=== PATIENT | male | born 1960 | race Caucasian/White ===

== ENCOUNTER 2019-05-29 06:56 | Inpatient (IN) | payer BC, OTHER, SELFPAY ==
--- NOTE | 2019-05-29 08:00 | CT ---
EXAM: CT angiogram great vessels neck with IV contrast and three-dimensional reconstructions CT angiogram brain with IV contrast and three-dimensional reconstructions PROVIDED CLINICAL HISTORY: Left-sided weakness COMPARISON: None FINDINGS: There is arch origin of the left vertebral artery, which is nondominant and terminates in PICA. . The common carotid, internal carotid, subclavian and vertebral arteries demonstrate no evidence for s ignificant stenosis. Calcified and noncalcified atherosclerotic plaque is demonstrated involving the right carotid bulb. There is no evidence for focal vessel stenosis, branch occlusion or aneurysm involving the intracrani al circulation. IMPRESSION: No significant extracranial or intracranial vascular disease.
--- NOTE | 2019-05-29 08:00 | CT ---
PRELIMINARY REPORT/[facility]/EMERGENCY AFTER HOURS PROCEDURE Addendum created by Michi Fontana MD on 05/29/2019 7:26 AM Central Time ([place] & [place]) THIS REPORT CONTAINS FINDINGS THAT MAY BE CRITICAL TO PATIENT CARE. The study was personally discussed on the telephone with care provider PEDRO SALINAS on 05/29/2019 7:26 AM [employer]IGARETTE EXAMINER. The results were understood and acknowledged. Initial Report created on 05/29/2019 7:18 AM Central Time ([place] & [place]) PROCEDURE INFORMATION: Exam: CT Head Without Contrast Exam date and time: 05/29/2019 7:03 AM Clinical history: 59 years old, male; Walking, difficulty and weakness, extremity; Left; Patient HX: Level 1 stroke fell out of bed this morning because PT states his legs would not support him. Lt sided deficits. HX stroke 2 months ago. Last time PT felt normal was 2am. TECHNIQUE: Imaging protocol: Computed tomography of the head without contrast. Other technique: STROKE PROTOCOL was implemented. COMPARISON: No relevant prior studies available. FINDINGS: Brain: Moderate chronic right ICA territory infarct. Multiple small chronic lacunar infarcts in the w noreen matter. Chronic left frontal opercular infarct. Small left parietal chronic cortical infarct. Multipl e chronic right parietal cortical infarcts. No midline shift, mass, fluid collection, or evidence of hemorrhage . Ventricles: Normal. No ventriculomegaly. Bones/joints: Unremarkable. No acute fracture. Sinuses: Visualized sinuses are unremarkable. No fluid levels. Mastoid air cells: Visualized mastoid air cells are well aerated. Soft tissues: Unremarkable. IMPRESSION: 1. [place] Stroke Program Early CT Score (ASPECTS) = 10. 2. No acute abnormality. Multiple chronic infarcts. Thank you for allowing us to participate in the care of your patient. Dictated and Authenticated by: Michi Fontana MD 05/29/2019 7:18 AM Central Time ([place] & [place]) FINAL REPORT EMERGENCY AFTER HOURS CT HEAD: Agree with the preliminary interpretation given by [facility] that there is no evidence for intracranial he morrhage or mass effect. Transcribed Date/Time: 05/29/2019 8:35 AM
[2019-05-29 08:10] LABS: #Basophils 0.1 thou/uL (0.0-0.2); #Eosinphils 0.1 thou/uL (0.0-0.7); #Lymphocytes 0.9 thou/uL (1.20-3.40); #Monocytes 0.9 thou/uL (0.11-0.59); #Neutrophils 7.6 thou/uL (1.40-6.50); %Basophils 0.7 % (0.0-1.0); %Eosinophils 0.8 % (0.0-10.0); %Lymphocytes 9.4 % (21.0-51.0); %Monocytes 8.9 % (0.0-10.0); %Neutrophils 80.2 % (42.0-75.0); Hemoglobin 12.6 g/dL (14.0-18.0); Mean Corpuscular Hemoglobin 32.7 pg (27.0-31.0); Mean Corpuscular Volume 96.4 fL (78.0-98.0); Mean Platelet Volume 9.6 fL (7.4-10.4); Platelet Count 121 thou/uL (130-400); RBC Distribution Width 11.5 % (11.5-14.5); Red Blood Cell (RBC) Count 3.84 mill/uL (4.70-6.10); White Blood Cell (WBC) Count 9.5 thou/uL (4.8-10.8)
--- NOTE | 2019-05-29 08:15 | RAD ---
EXAM: XR Chest 1 View Portable PROVIDED CLINICAL HISTORY: Stroke alert COMPARISON: None FINDINGS: Cardiac and mediastinal silhouette is within normal limits. Lungs appear clear. No pleural fluid or p neumothorax apparent. Contrast material within the right upper arm and axillary region compatible with extravasation from prior CT. IMPRESSION: 1. No evidence for an acute cardiopulmonary process. 2. Prominent contrast extravasation involving the right arm.
[2019-05-29 08:17] LABS: INR-International Normal Ratio 1.1; Prothrombin Time 13.7 SEC (12.0-14.7)
[2019-05-29 08:20] LABS: PTT 20.6 SEC (22.9-36.1)
[2019-05-29 08:46] LABS: ALT (SGPT) 90 U/L (8-55); AST (SGOT) 65 U/L (5-34); Albumin 3.7 g/dL (3.4-4.8); Alcohol Less than 10 mg/dL (Less than 10); Alkaline Phosphatase 175 U/L (40-110); Anion Gap 15 mmol/L (10-20); BUN (Urea Nitrogen) 27 mg/dL (8.4-25.7); Bilirubin, Total 0.6 mg/dL (0.2-1.2); CK (CPK) 74 U/L (30-200); Calc. Creatinine Clearance 0 mL/min (70-130); Calcium 8.5 mg/dL (7.8-10.44); Carbon Dioxide 25 mmol/L (23-31); Chloride 100 mmol/L (98-107); Estimated GFR-MDRD 43; Globulin 2.2 g/dL (2.4-3.5); Glucose 150 mg/dL (80-115); Potassium 3.8 mmol/L (3.5-5.1); Protein, Total 5.9 g/dL (5.8-8.1); Sodium 136 mmol/L (136-145)
[2019-05-29 08:47] LABS: CKMB 1.5 ng/mL (0-6.6)
[2019-05-29] MEDS ORDERED: Aspirin Chewable 81 MG TAB ONE (09:41)
[2019-05-29] MEDS ORDERED: Senokot S 8.6-50 MG TAB PO PRN (09:52)
[2019-05-29] MEDS ORDERED: Bisacodyl 10 MG SUPP PR PRN (09:52)
[2019-05-29] MEDS ORDERED: hydrALAZINE 20 MG/ML VIAL SLOW IVP PRN (09:52)
[2019-05-29] MEDS ORDERED: ALPRAZolam 0.25 MG TAB PO PRN (09:52)
[2019-05-29] MEDS ORDERED: Guaifenesin DM 100-10/5 ML UDCUP PO PRN (09:52)
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
[2019-05-29 11:41] VITALS: BMI 24.7
[2019-05-29 12:15] LABS: Troponin I 0.142 ng/mL (< 0.028)
--- NOTE | 2019-05-29 12:22 | MRI ---
Exam: Brain MRI without IV contrast: HISTORY: Stroke COMPARISON: Head CT 05/29/2019 FINDINGS: Exam is severely limited by motion artifact. There are old infarct changes in the right parietal and left frontal regions. There is evidence for acute infarct changes in the right medial anterior frontal lobe and corpus callosum and extending into the more posterior right frontal lobe medially ad jacent to the falx evidence for a right anterior cerebral artery distribution acute infarct. In addition there are numerous bilateral small punctate watershed type infarct changes bilaterally which appear acute as well. No evidence for acute hemorrhage. IMPRESSION: Evidence for acute infarct in the region of the right anterior cerebral artery distribution. Multiple small punctate acute infarcts bilaterally evidence for watershed type distribution. Old left frontal and right parietal infarcts.
[2019-05-29] MEDS: Sodium Chloride 0.9% 1,000 ML IV SCH ×2 (14:29→20:35)
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
[2019-05-29] MEDS ORDERED: Iopamidol-370 76% 500 ML 1 ML ONE (16:39)
[2019-05-29] MEDS: Atorvastatin Calcium 40 MG TAB PO SCH (20:34)
[2019-05-29] MEDS: Apixaban 5 MG TAB PO SCH (20:35)
[2019-05-29] MEDS ORDERED: Apixaban 2.5 MG TAB PO SCH (21:00)
[2019-05-30 05:27] LABS: #Eosinphils 0.1 thou/uL (0.0-0.7); #Lymphocytes 1.1 thou/uL (1.20-3.40); #Monocytes 0.9 thou/uL (0.11-0.59); #Neutrophils 10.8 thou/uL (1.40-6.50); %Basophils 0.1 % (0.0-1.0); %Eosinophils 0.6 % (0.0-10.0); %Lymphocytes 8.7 % (21.0-51.0); %Monocytes 7.2 % (0.0-10.0); %Neutrophils 83.4 % (42.0-75.0); Hemoglobin 12.3 g/dL (14.0-18.0); Mean Corpuscular HGB CONC 33.6 g/dL (32.0-36.0); Mean Corpuscular Hemoglobin 32.1 pg (27.0-31.0); Mean Corpuscular Volume 95.7 fL (78.0-98.0); Mean Platelet Volume 9.2 fL (7.4-10.4); Platelet Count 119 thou/uL (130-400); RBC Distribution Width 11.4 % (11.5-14.5); Red Blood Cell (RBC) Count 3.85 mill/uL (4.70-6.10); White Blood Cell (WBC) Count 12.9 thou/uL (4.8-10.8)
[2019-05-30 06:12] LABS: Anion Gap 15 mmol/L (10-20); BUN (Urea Nitrogen) 16 mg/dL (8.4-25.7); Calc. Creatinine Clearance 62 mL/min (70-130); Calcium 8.5 mg/dL (7.8-10.44); Carbon Dioxide 20 mmol/L (23-31); Cardiac Risk 1.9 (Less than 4.5); Chloride 107 mmol/L (98-107); Cholesterol 125 mg/dl (< 200 Desired); Estimated GFR-MDRD 54; Glucose 124 mg/dL (80-115); HDL Cholesterol 67 mg/dL (>60 Neg Risk); LDL Cholesterol, Calculated 48 mg/dL; Potassium 3.8 mmol/L (3.5-5.1); Sodium 138 mmol/L (136-145); Triglycerides 49 mg/dL (Less than 150)
[2019-05-30] MEDS: Sodium Chloride 0.9% 1,000 ML IV SCH ×2 (06:22→16:16)
[2019-05-30] MEDS: Levothyroxine Sodium 100 MCG TAB PO SCH (06:22)
[2019-05-30 06:31] LABS: Syphilis Antibody Nonreactive (Nonreactive); Syphilis Antibody Index 0.04 S/CO (<1.00 Non-Reactive)
[2019-05-30] MEDS ORDERED: Prevnar 13-Val Conj/PF 0.5 ML SYRINGE IM ONE (09:00)
[2019-05-30] MEDS: Apixaban 5 MG TAB PO SCH ×2 (09:21→20:57)
[2019-05-30] MEDS: Aspirin 81 mg Enteric Coated Tablet PO SCH (09:22)
--- NOTE | 2019-05-30 11:07 | PDOC.HOSPP ---
- Subjective Encounter Date: 05/30/19 Encounter Time: 08:00 Subjective: awake, responds to verbal stimuli cannot move his left LE at all, moves a bit of left UE takes time to answer questions - Objective Vital Signs & Weight: Vital Signs (12 hours) Temp Pulse Resp BP Pulse Ox 05/30/19 09:22 88 05/30/19 07:59 98.8 F 88 20 168/94 H 100 05/30/19 04:00 98.7 F 95 16 176/90 H 97 05/30/19 00:00 98.5 F 72 16 173/77 H 95 Weight Weight 167 lb 5 oz I&O: 05/29/19 05/30/19 05/31/19 06:59 06:59 06:59 Intake Total 1899 240 Balance 1899 240 Result Diagrams: 05/30/19 05:14 05/30/19 05:14 Hospitalist ROS - Medication Medications: Active Medications Generic Name Dose Route Start Last Admin Trade Name Freq PRN Reason Stop Dose Admin Apixaban 5 mg 05/29/19 21:00 05/30/19 09:21 Eliquis PO 5 mg BID [facility] Administration Aspirin 81 mg 05/30/19 09:00 05/30/19 09:22 Ecotrin PO 81 mg DAILY [facility] Administration Atorvastatin Calcium 40 mg 05/29/19 21:00 05/29/19 20:34 Lipitor PO 40 mg HS DAWSON Administration Diltiazem HCl 120 mg 05/30/19 09:00 05/30/19 09:22 Cardizem Cd PO 120 mg DAILY DAWSON Administration Sodium Chloride 1,000 mls @ 100 mls/hr 05/29/19 10:00 05/30/19 06:22 Normal Saline 0.9% IV Not Given .Q10H DAWSON Levothyroxine Sodium 100 mcg 05/30/19 06:00 05/30/19 06:22 Synthroid PO 100 mcg 0600 DAWSON Administration Sertraline HCl 25 mg 05/29/19 21:00 05/29/19 21:20 Zoloft PO 25 mg HS DAWSON Administration - Exam General Appearance: NAD, awake alert Eye: PERRL, anicteric sclera ENT: no oropharyngeal lesions, moist mucosa Neck: supple, no JVD Heart: RRR, no murmur Respiratory: no wheezes, no rales Gastrointestinal: soft, non-tender, non-distended, normal bowel sounds Extremities: no cyanosis, no edema Neurological - other findings: left hemiplegia lower >upper Psychiatric: normal affect Hosp A/P (1) Acute CVA (cerebrovascular accident) Code(s): I63.9 - CEREBRAL INFARCTION, UNSPECIFIED Status: Acute (2) HTN (hypertension) Code(s): I10 - ESSENTIAL (PRIMARY) HYPERTENSION Status: Chronic Qualifiers: Hypertension type: essential hypertension Qualified Code(s): I10 - Essential (primary) hypertension (3) Paroxysmal A-fib Code(s): I48.0 - PAROXYSMAL ATRIAL FIBRILLATION Status: Suspected (4) Dyslipidemia Code(s): E78.5 - HYPERLIPIDEMIA, UNSPECIFIED Status: Chronic (5) Pancreatic cancer metastasized to liver Code(s): C25.9 - MALIGNANT NEOPLASM OF PANCREAS, UNSPECIFIED; C78.7 - SECONDARY MALIG NEOPLASM OF LIVER AND INTRAHEPATIC BILE DUCT Status: Chronic - Plan MRI confirms right MARIAM cva, watershed infarct h/o old left frontal and right parietal cva is on full dose eliquis with asp now continue cardizem cd, synthroid ldl is 48, creatinine around 1.3 PT/OT/speech eval will need rehab eval has h/o pancreatic cancer from atleast 5yrs with prior whipple's procedure and mets to liver.
--- NOTE | 2019-05-30 14:35 | PDOC.CPN ---
- Subjective Date: 05/30/19 Time: 14:34 Interval history: Doing well. No new issues. - Review of Systems General: denies: fever/chills, weight/appetite/sleep changes, night sweats, fatigue Respiratory: denies: cough, congestion, shortness of breath, exercise intolerance Cardiovascular: denies: chest pain, palpitation, edema, paroxysmal nocturnal dyspnea, orthopnea Gastrointestinal: denies: nausea, vomiting, diarrhea, constipation, abd pain, GI bleeding Musculoskeletal: denies: pain, tenderness, stiffness, swelling, arthritis/ arthralgias Neurological: reports: weakness. denies: numbness, syncope, seizure - Objective Allergies/Adverse Reactions: Allergies Allergy/AdvReac Type Severity Reaction Status Date / Time amiodarone Allergy Verified 05/29/19 13:17 Visit Medications: Current Medications Acetaminophen (Tylenol) 650 mg PO Q4H PRN PRN Reason: Headache/Fever/Mild Pain (1-3) Alprazolam (Xanax) 0.25 mg PO Q24H PRN PRN Reason: Anxiety Apixaban (Eliquis) 5 mg PO BID [facility] Last Admin: 05/30/19 09:21 Dose: 5 mg Aspirin (Ecotrin) 81 mg PO DAILY [facility] Last Admin: 05/30/19 09:22 Dose: 81 mg Atorvastatin Calcium (Lipitor) 40 mg PO HS [facility] Last Admin: 05/29/19 20:34 Dose: 40 mg Bisacodyl (Dulcolax) 10 mg OK DAILYPRN PRN PRN Reason: Constipation Diltiazem HCl (Cardizem Cd) 120 mg PO DAILY [facility] Last Admin: 05/30/19 09:22 Dose: 120 mg Guaifenesin/Dextromethorphan (Robitussin Dm) 15 ml PO Q4H PRN PRN Reason: Cough Hydralazine HCl (Apresoline) 10 mg SLOW IVP Q4H PRN PRN Reason: BP > 220/110 Sodium Chloride (Normal Saline 0.9%) 1,000 mls @ 100 mls/hr IV .Q10H [facility] Last Admin: 05/30/19 06:22 Dose: Not Given Levothyroxine Sodium (Synthroid) 100 mcg PO 0600 [facility] Last Admin: 05/30/19 06:22 Dose: 100 mcg Senna/Docusate Sodium (Senokot S) 2 tab PO BIDPRN PRN PRN Reason: Constipation Sertraline HCl (Zoloft) 25 mg PO HS [facility] Last Admin: 05/29/19 21:20 Dose: 25 mg Sodium Chloride (Flush - Normal Saline) 10 ml IVF PRN PRN PRN Reason: Saline Flush Vital Signs & Weight: Vital Signs Temp Pulse Resp BP BP BP Pulse Ox 05/30/19 11:57 98.4 F 67 21 H 161/73 H 96 05/30/19 10:51 180/85 H 168/83 H 05/30/19 09:22 88 05/30/19 07:59 98.8 F 88 20 168/94 H 100 05/30/19 04:00 98.7 F 95 16 176/90 H 97 Weight 167 lb 5 oz - Physical Exam General: alert & oriented x3, no apparent distress HEENT: mucus membranes moist Neck: supple neck Cardiac: regular rate and rhythm, no murmur Lungs: clear to auscultation Neuro: weakness Abdomen: active bowel sounds, soft, non-tender Extremities: no edema Skin: clear Musculoskeletal: no pain - Labs Result Diagrams: 05/30/19 05:14 05/30/19 05:14 Troponin/CKMB CK-MB (CK-2) 1.5 ng/mL (0-6.6) 05/29/19 07:59 Troponin I 0.140 ng/mL (< 0.028) H 05/29/19 14:19 - Telemetry Sinus rhythms and dysrhythmias: sinus rhythm - Assessment/Plan Assessment/Plan: 1. Acute CVA, recurrent. 2. Paroxysmal Afib 3. Pancreatic cancer metastatic to the liver. PLAN: - Tolerating higher dose of Eliquis. - Will have EP evaluate as he is high risk for bleeding and may be a candidate for Watchman or Lariat.
[2019-05-30] MEDS: Atorvastatin Calcium 40 MG TAB PO SCH (20:57)
[2019-05-30 21:00] LABS: Anion Gap 12 mmol/L (10-20); BUN (Urea Nitrogen) 14 mg/dL (8.4-25.7); Calc. Creatinine Clearance 57 mL/min (70-130); Calcium 8.3 mg/dL (7.8-10.44); Carbon Dioxide 22 mmol/L (23-31); Chloride 105 mmol/L (98-107); Estimated GFR-MDRD 49; Glucose 223 mg/dL (80-115); Magnesium 1.9 mg/dL (1.6-2.6); Potassium 3.9 mmol/L (3.5-5.1); Sodium 135 mmol/L (136-145)
[2019-05-31] MEDS: Sodium Chloride 0.9% 1,000 ML IV SCH ×2 (02:08→13:07)
[2019-05-31] MEDS: Levothyroxine Sodium 100 MCG TAB PO SCH (05:50)
[2019-05-31] MEDS: Apixaban 5 MG TAB PO SCH ×2 (08:16→21:10)
[2019-05-31] MEDS: Aspirin 81 mg Enteric Coated Tablet PO SCH (08:16)
[2019-05-31] MEDS ORDERED: ALPRAZolam 0.25 MG TAB PO PRN (12:25)
--- NOTE | 2019-05-31 12:47 | PDOC.HOSPP ---
- Subjective Encounter Date: 05/31/19 Encounter Time: 11:20 Subjective: no sob or new weakness still not much movement seen in left extremities at bedside is tolerating oral diet - Objective Vital Signs & Weight: Vital Signs (12 hours) Temp Pulse Pulse Pulse Pulse Resp BP 05/31/19 12:23 97.6 F 67 20 05/31/19 10:00 05/31/19 09:05 80 74 70 05/31/19 08:55 79 80 70 05/31/19 08:15 68 190/78 H 05/31/19 08:08 19 05/31/19 07:56 98.0 F 68 28 H 05/31/19 04:00 98 F 64 16 BP BP BP BP Pulse Ox 05/31/19 12:23 185/85 H 97 05/31/19 10:00 154/76 H 05/31/19 09:05 144/71 H 177/82 H 154/76 H 05/31/19 08:55 177/82 H 144/81 H 154/70 H 05/31/19 08:15 05/31/19 08:08 93 L 05/31/19 07:56 190/78 H 93 L 05/31/19 04:00 160/76 H 96 Weight Weight 167 lb 5 oz I&O: 05/30/19 05/31/19 06/01/19 06:59 06:59 06:59 Intake Total 1899 720 360 Balance 1899 720 360 Result Diagrams: 05/30/19 05:14 05/30/19 20:33 Hospitalist ROS - Medication Medications: Active Medications Generic Name Dose Route Start Last Admin Trade Name Isiah PRN Reason Stop Dose Admin Apixaban 5 mg 05/29/19 21:00 05/31/19 08:16 Eliquis PO 5 mg BID [facility] Administration Aspirin 81 mg 05/30/19 09:00 05/31/19 08:16 Ecotrin PO 81 mg DAILY [facility]SON Administration Atorvastatin Calcium 40 mg 05/29/19 21:00 05/30/19 20:57 Lipitor PO 40 mg HS DAWSON Administration Diltiazem HCl 120 mg 05/30/19 09:00 05/31/19 08:15 Cardizem Cd PO 120 mg DAILY DAWSON Administration Sodium Chloride 1,000 mls @ 100 mls/hr 05/29/19 10:00 05/31/19 02:08 Normal Saline 0.9% IV 1,000 mls .Q10H DAWSON Administration Levothyroxine Sodium 100 mcg 05/30/19 06:00 05/31/19 05:50 Synthroid PO 100 mcg 0600 DAWSON Administration Sertraline HCl 25 mg 05/29/19 21:00 05/30/19 20:57 Zoloft PO 25 mg HS DAWSON Administration - Exam General Appearance: NAD, awake alert Eye: PERRL, anicteric sclera ENT: no oropharyngeal lesions, moist mucosa Neck: supple, no JVD Heart: RRR, no murmur Respiratory: no wheezes, no rales Gastrointestinal: soft, non-tender, non-distended, normal bowel sounds Extremities: no cyanosis, no edema Neurological - other findings: left hemiplegia Psychiatric: A&O x 3 Hosp A/P (1) Acute CVA (cerebrovascular accident) Code(s): I63.9 - CEREBRAL INFARCTION, UNSPECIFIED Status: Acute (2) HTN (hypertension) Code(s): I10 - ESSENTIAL (PRIMARY) HYPERTENSION Status: Chronic Qualifiers: Hypertension type: essential hypertension Qualified Code(s): I10 - Essential (primary) hypertension (3) Paroxysmal A-fib Code(s): I48.0 - PAROXYSMAL ATRIAL FIBRILLATION Status: Suspected (4) Dyslipidemia Code(s): E78.5 - HYPERLIPIDEMIA, UNSPECIFIED Status: Chronic (5) Pancreatic cancer metastasized to liver Code(s): C25.9 - MALIGNANT NEOPLASM OF PANCREAS, UNSPECIFIED; C78.7 - SECONDARY MALIG NEOPLASM OF LIVER AND INTRAHEPATIC BILE DUCT Status: Chronic - Plan MRI confirms right MARIAM cva, watershed infarct h/o old left frontal and right parietal cva is on full dose eliquis with asp continue cardizem cd, synthroid, creon tid ldl is 48 PT/OT/speech ongoing eval may dc to rehab if accepted has h/o pancreatic cancer from atleast 5yrs with prior whipple's procedure and mets to liver. d/w patient and at bedside
[2019-05-31] MEDS: Pancrelipase DR 12000 1 CAP PO SCH (17:36)
--- NOTE | 2019-05-31 17:38 | PDOC.CPN ---
- Subjective Date: 05/31/19 Time: 17:37 Interval history: No new issues. No new complaints. - Review of Systems General: denies: fever/chills, weight/appetite/sleep changes, night sweats, fatigue Respiratory: denies: cough, congestion, shortness of breath, exercise intolerance Cardiovascular: denies: chest pain, palpitation, edema, paroxysmal nocturnal dyspnea, orthopnea Gastrointestinal: denies: nausea, vomiting, diarrhea, constipation, abd pain, GI bleeding Musculoskeletal: denies: pain, tenderness, stiffness, swelling, arthritis/ arthralgias Neurological: denies: numbness, syncope, seizure, weakness - Objective Allergies/Adverse Reactions: Allergies Allergy/AdvReac Type Severity Reaction Status Date / Time amiodarone Allergy Verified 05/29/19 13:17 Visit Medications: Current Medications Acetaminophen (Tylenol) 650 mg PO Q4H PRN PRN Reason: Headache/Fever/Mild Pain (1-3) Alprazolam (Xanax) 0.25 mg PO DAILY PRN PRN Reason: Agitation Lipase/Protease/Amylase ([place] [id number]) 1 cap PO TID-WM [facility] Last Admin: 05/31/19 17:36 Dose: 1 cap Apixaban (Eliquis) 5 mg PO BID [facility] Last Admin: 05/31/19 08:16 Dose: 5 mg Aspirin (Ecotrin) 81 mg PO DAILY [facility] Last Admin: 05/31/19 08:16 Dose: 81 mg Atorvastatin Calcium (Lipitor) 40 mg PO HS [facility] Last Admin: 05/30/19 20:57 Dose: 40 mg Bisacodyl (Dulcolax) 10 mg DE DAILYPRN PRN PRN Reason: Constipation Diltiazem HCl (Cardizem Cd) 120 mg PO DAILY [facility] Last Admin: 05/31/19 08:15 Dose: 120 mg Guaifenesin/Dextromethorphan (Robitussin Dm) 15 ml PO Q4H PRN PRN Reason: Cough Hydralazine HCl (Apresoline) 10 mg SLOW IVP Q4H PRN PRN Reason: BP > 220/110 Levothyroxine Sodium (Synthroid) 100 mcg PO 0600 [facility] Last Admin: 05/31/19 05:50 Dose: 100 mcg Senna/Docusate Sodium (Senokot S) 2 tab PO BIDPRN PRN PRN Reason: Constipation Sertraline HCl (Zoloft) 25 mg PO HS [facility] Last Admin: 05/30/19 20:57 Dose: 25 mg Sodium Chloride (Flush - Normal Saline) 10 ml IVF PRN PRN PRN Reason: Saline Flush Vital Signs & Weight: Vital Signs Temp Pulse Pulse Pulse Pulse Resp BP 05/31/19 16:00 97.7 F 58 L 20 05/31/19 12:23 97.6 F 67 20 05/31/19 10:00 05/31/19 09:05 80 74 70 05/31/19 08:55 79 80 70 05/31/19 08:15 68 190/78 H 05/31/19 08:08 19 05/31/19 07:56 98.0 F 68 28 H BP BP BP BP Pulse Ox 05/31/19 16:00 149/72 H 97 05/31/19 12:23 185/85 H 97 05/31/19 10:00 154/76 H 05/31/19 09:05 144/71 H 177/82 H 154/76 H 05/31/19 08:55 177/82 H 144/81 H 154/70 H 05/31/19 08:15 05/31/19 08:08 93 L 05/31/19 07:56 190/78 H 93 L Admit Weight 167 lb 5 oz Weight 167 lb 5 oz - Physical Exam General: alert & oriented x3, no apparent distress HEENT: mucus membranes moist, normocephaly Neck: supple neck Cardiac: regular rate and rhythm, no murmur Lungs: clear to auscultation Neuro: weakness Abdomen: active bowel sounds, soft, non-tender Extremities: no edema Skin: clear Musculoskeletal: no pain - Labs Result Diagrams: 05/30/19 05:14 05/30/19 20:33 Troponin/CKMB CK-MB (CK-2) 1.5 ng/mL (0-6.6) 05/29/19 07:59 Troponin I 0.140 ng/mL (< 0.028) H 05/29/19 14:19 - Telemetry Sinus rhythms and dysrhythmias: sinus rhythm - Assessment/Plan Assessment/Plan: 1. Acute CVA, recurrent. 2. Paroxysmal Afib 3. Pancreatic cancer metastatic to the liver. PLAN: - brings his medications from home and Eliquis bottle is for 5 mg BID which is the correct dose for him. This means he has been on the current dose all this time and he states he has been very compliant hence he has failed full anticoagulation for CVA prophylaxis and would be a candidate for a Watchman or Lariat. EP to evaluate for this. Continue current meds otherwise.
[2019-05-31] MEDS: Atorvastatin Calcium 40 MG TAB PO SCH (21:10)
[2019-06-01] MEDS: Levothyroxine Sodium 100 MCG TAB PO SCH (06:07)
[2019-06-01] MEDS: Apixaban 5 MG TAB PO SCH ×2 (08:17→20:38)
[2019-06-01] MEDS: Aspirin 81 mg Enteric Coated Tablet PO SCH (08:17)
[2019-06-01] MEDS: Pancrelipase DR 12000 1 CAP PO SCH ×3 (08:17→17:30)
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
--- NOTE | 2019-06-01 15:53 | PDOC.HOSPP ---
- Subjective Encounter Date: 06/01/19 Encounter Time: 11:00 Subjective: no new weakness is eating well working with PT, has not been able to mobilize yet - Objective Vital Signs & Weight: Vital Signs (12 hours) Temp Pulse Pulse Pulse Pulse Resp BP 06/01/19 13:18 60 63 06/01/19 11:06 66 64 06/01/19 11:00 98.8 F 66 16 06/01/19 08:17 67 152/72 H 06/01/19 08:13 06/01/19 07:00 98.8 F 67 18 06/01/19 04:00 06/01/19 03:53 97.8 F 61 16 BP BP BP BP BP Pulse Ox 06/01/19 13:18 157/80 H 164/79 H 06/01/19 11:06 142/65 H 158/71 H 06/01/19 11:00 142/65 H 96 06/01/19 08:17 06/01/19 08:13 96 06/01/19 07:00 152/72 H 96 06/01/19 04:00 95 06/01/19 03:53 190/85 H 95 Weight Admit Weight 167 lb 5 oz Weight 167 lb 5 oz I&O: 05/31/19 06/01/19 06/02/19 06:59 06:59 06:59 Intake Total 720 1060 Balance 720 1060 Result Diagrams: 05/30/19 05:14 05/30/19 20:33 Hospitalist ROS - Medication Medications: Active Medications Generic Name Dose Route Start Last Admin Trade Name Freq PRN Reason Stop Dose Admin Lipase/Protease/Amylase 1 cap 05/31/19 17:00 06/01/19 11:56 [place] [id number] PO 1 cap TID-WM DAWSON Administration Apixaban 5 mg 05/29/19 21:00 06/01/19 08:17 Eliquis PO 5 mg BID [facility]WSON Administration Aspirin 81 mg 05/30/19 09:00 06/01/19 08:17 Ecotrin PO 81 mg DAILY [facility] Administration Atorvastatin Calcium 40 mg 05/29/19 21:00 05/31/19 21:10 Lipitor PO 40 mg HS [facility]WSON Administration Diltiazem HCl 120 mg 05/30/19 09:00 06/01/19 08:17 Cardizem Cd PO 120 mg DAILY [facility] Administration Levothyroxine Sodium 100 mcg 05/30/19 06:00 06/01/19 06:07 Synthroid PO 100 mcg 0600 DAWSON Administration Sertraline HCl 25 mg 05/29/19 21:00 05/31/19 21:11 Zoloft PO 25 mg HS [facility]WSON Administration - Exam General Appearance: NAD, awake alert Eye: PERRL, anicteric sclera ENT: no oropharyngeal lesions, moist mucosa Neck: supple, no JVD Heart: RRR, no murmur Respiratory: no wheezes, no rales Gastrointestinal: soft, non-tender, non-distended, normal bowel sounds Extremities: no cyanosis, no edema Neurological - other findings: left hemiplegia Psychiatric: normal affect, A&O x 3 Hosp A/P (1) Acute CVA (cerebrovascular accident) Code(s): I63.9 - CEREBRAL INFARCTION, UNSPECIFIED Status: Acute (2) HTN (hypertension) Code(s): I10 - ESSENTIAL (PRIMARY) HYPERTENSION Status: Chronic Qualifiers: Hypertension type: essential hypertension Qualified Code(s): I10 - Essential (primary) hypertension (3) Paroxysmal A-fib Code(s): I48.0 - PAROXYSMAL ATRIAL FIBRILLATION Status: Suspected (4) Dyslipidemia Code(s): E78.5 - HYPERLIPIDEMIA, UNSPECIFIED Status: Chronic (5) Pancreatic cancer metastasized to liver Code(s): C25.9 - MALIGNANT NEOPLASM OF PANCREAS, UNSPECIFIED; C78.7 - SECONDARY MALIG NEOPLASM OF LIVER AND INTRAHEPATIC BILE DUCT Status: Chronic - Plan MRI confirms right MARIAM cva, watershed infarct h/o old left frontal and right parietal cva is on full dose eliquis with asp continue cardizem cd, synthroid, creon tid ldl is 48 PT/OT/speech ongoing eval may dc to rehab if accepted has h/o pancreatic cancer from atleast 5yrs with prior whipple's procedure and mets to liver. has not been able to mobilize yet with PT/OT, will need rehab d/w , will have outpt watchman device in 2-4 wks arranged at [facility] in [place].
[2019-06-01] MEDS: Atorvastatin Calcium 40 MG TAB PO SCH (20:38)
[2019-06-02] MEDS: Acetaminophen 325 MG TAB PO PRN ×2 (00:48→22:57)
[2019-06-02] MEDS: Levothyroxine Sodium 100 MCG TAB PO SCH (05:47)
[2019-06-02] MEDS: Pancrelipase DR 12000 1 CAP PO SCH ×3 (08:56→17:55)
[2019-06-02] MEDS: Aspirin 81 mg Enteric Coated Tablet PO SCH (08:56)
[2019-06-02] MEDS: Apixaban 5 MG TAB PO SCH ×2 (08:57→20:45)
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
--- NOTE | 2019-06-02 16:42 | PDOC.HOSPP ---
- Subjective Encounter Date: 06/02/19 Encounter Time: 10:00 Subjective: no new complaints, at bedside is eating well has stood with PT but not ambulated yet he is trying and learning to balance on his right side to get his left side move - Objective Vital Signs & Weight: Vital Signs (12 hours) Temp Pulse Pulse Pulse Resp BP BP 06/02/19 15:35 97.7 F 60 20 06/02/19 13:54 80 60 183/93 H 06/02/19 11:25 97.8 F 58 L 20 06/02/19 08:56 71 175/90 H 06/02/19 08:55 06/02/19 07:39 98.3 F 60 20 BP BP Pulse Ox 06/02/19 15:35 153/77 H 95 06/02/19 13:54 176/84 H 06/02/19 11:25 168/81 H 96 06/02/19 08:56 06/02/19 08:55 96 06/02/19 07:39 172/90 H 96 Weight Admit Weight 167 lb 5 oz Weight 167 lb 5 oz I&O: 06/01/19 06/02/19 06/03/19 06:59 06:59 06:59 Intake Total 1060 730 240 Balance 1060 730 240 Result Diagrams: 05/30/19 05:14 05/30/19 20:33 Hospitalist ROS - Medication Medications: Active Medications Generic Name Dose Route Start Last Admin Trade Name Freq PRN Reason Stop Dose Admin Acetaminophen 650 mg 05/29/19 09:52 06/02/19 00:48 Tylenol PO 650 mg Q4H PRN Administration Headache/Fever/Mild Pain (1-3) Lipase/Protease/Amylase 1 cap 05/31/19 17:00 06/02/19 13:10 [place] [id number] PO 1 cap TID-WM [facility] Administration Apixaban 5 mg 05/29/19 21:00 06/02/19 08:57 Eliquis PO 5 mg BID [facility] Administration Aspirin 81 mg 05/30/19 09:00 06/02/19 08:56 Ecotrin PO 81 mg DAILY [facility] Administration Atorvastatin Calcium 40 mg 05/29/19 21:00 06/01/19 20:38 Lipitor PO 40 mg HS DAWSON Administration Diltiazem HCl 120 mg 05/30/19 09:00 06/02/19 08:56 Cardizem Cd PO 120 mg DAILY [facility] Administration Levothyroxine Sodium 100 mcg 05/30/19 06:00 06/02/19 05:47 Synthroid PO 100 mcg 0600 [facility] Administration Sertraline HCl 25 mg 05/29/19 21:00 06/01/19 20:38 Zoloft PO 25 mg HS [facility]WSON Administration Sodium Chloride 10 ml 05/29/19 09:52 06/01/19 20:38 Flush - Normal Saline IVF 10 ml PRN PRN Administration Saline Flush - Exam General Appearance: awake alert Eye: PERRL, anicteric sclera ENT: no oropharyngeal lesions, moist mucosa Neck: supple, no JVD Heart: no murmur, no gallops Respiratory: no wheezes, no rales Gastrointestinal: soft, non-tender, non-distended, normal bowel sounds Extremities: no cyanosis, no edema Neurological: hemiplegia Psychiatric: normal affect, A&O x 3 Hosp A/P (1) Acute CVA (cerebrovascular accident) Code(s): I63.9 - CEREBRAL INFARCTION, UNSPECIFIED Status: Acute (2) HTN (hypertension) Code(s): I10 - ESSENTIAL (PRIMARY) HYPERTENSION Status: Chronic Qualifiers: Hypertension type: essential hypertension Qualified Code(s): I10 - Essential (primary) hypertension (3) Paroxysmal A-fib Code(s): I48.0 - PAROXYSMAL ATRIAL FIBRILLATION Status: Suspected (4) Dyslipidemia Code(s): E78.5 - HYPERLIPIDEMIA, UNSPECIFIED Status: Chronic (5) Pancreatic cancer metastasized to liver Code(s): C25.9 - MALIGNANT NEOPLASM OF PANCREAS, UNSPECIFIED; C78.7 - SECONDARY MALIG NEOPLASM OF LIVER AND INTRAHEPATIC BILE DUCT Status: Chronic - Plan MRI confirms right MARIAM cva, watershed infarct h/o old left frontal and right parietal cva is on full dose eliquis with asp continue cardizem cd, synthroid, creon tid ldl is 48 PT/OT/speech ongoing eval awaiting insurance approval to rehab, may dc anytime if accepted has h/o pancreatic cancer from atleast 5yrs with prior whipple's procedure and mets to liver. has not been able to mobilize yet with PT/OT, will need rehab d/w , will have outpt watchman device in 2-[address] [facility] in [place].
--- NOTE | 2019-06-02 19:19 | PDOC.CPN ---
- Subjective Date: 06/02/19 Time: 19:16 Interval history: No new issues. Waiting on placement. - Review of Systems General: denies: fever/chills, weight/appetite/sleep changes, night sweats, fatigue Respiratory: denies: cough, congestion, shortness of breath, exercise intolerance Cardiovascular: denies: chest pain, palpitation, edema, paroxysmal nocturnal dyspnea, orthopnea Gastrointestinal: denies: nausea, vomiting, diarrhea, constipation, abd pain, GI bleeding Musculoskeletal: denies: pain, tenderness, stiffness, swelling, arthritis/ arthralgias Neurological: reports: weakness. denies: numbness, syncope, seizure - Objective Allergies/Adverse Reactions: Allergies Allergy/AdvReac Type Severity Reaction Status Date / Time amiodarone Allergy Verified 05/29/19 13:17 Visit Medications: Current Medications Acetaminophen (Tylenol) 650 mg PO Q4H PRN PRN Reason: Headache/Fever/Mild Pain (1-3) Last Admin: 06/02/19 00:48 Dose: 650 mg Alprazolam (Xanax) 0.25 mg PO DAILY PRN PRN Reason: Agitation Lipase/Protease/Amylase ([place] [id number]) 1 cap PO TID-[facility] Last Admin: 06/02/19 17:55 Dose: 1 cap Apixaban (Eliquis) 5 mg PO BID [facility] Last Admin: 06/02/19 08:57 Dose: 5 mg Aspirin (Ecotrin) 81 mg PO DAILY [facility] Last Admin: 06/02/19 08:56 Dose: 81 mg Atorvastatin Calcium (Lipitor) 40 mg PO HS [facility] Last Admin: 06/01/19 20:38 Dose: 40 mg Bisacodyl (Dulcolax) 10 mg [place] DAILYPRN PRN PRN Reason: Constipation Diltiazem HCl (Cardizem Cd) 120 mg PO DAILY [facility] Last Admin: 06/02/19 08:56 Dose: 120 mg Guaifenesin/Dextromethorphan (Robitussin Dm) 15 ml PO Q4H PRN PRN Reason: Cough Hydralazine HCl (Apresoline) 10 mg SLOW IVP Q4H PRN PRN Reason: BP > 220/110 Levothyroxine Sodium (Synthroid) 100 mcg PO 0600 [facility] Last Admin: 06/02/19 05:47 Dose: 100 mcg Senna/Docusate Sodium (Senokot S) 2 tab PO BIDPRN PRN PRN Reason: Constipation Sertraline HCl (Zoloft) 25 mg PO HS [facility] Last Admin: 06/01/19 20:38 Dose: 25 mg Sodium Chloride (Flush - Normal Saline) 10 ml IVF PRN PRN PRN Reason: Saline Flush Last Admin: 06/01/19 20:38 Dose: 10 ml Vital Signs & Weight: Vital Signs Temp Pulse Pulse Pulse Resp BP BP 06/02/19 15:35 97.7 F 60 20 06/02/19 13:54 80 60 183/93 H 06/02/19 11:25 97.8 F 58 L 20 06/02/19 08:56 71 175/90 H 06/02/19 08:55 06/02/19 07:39 98.3 F 60 20 BP BP Pulse Ox 06/02/19 15:35 153/77 H 95 06/02/19 13:54 176/84 H 06/02/19 11:25 168/81 H 96 06/02/19 08:56 06/02/19 08:55 96 06/02/19 07:39 172/90 H 96 Admit Weight 167 lb 5 oz Weight 167 lb 5 oz - Quality Measures Condition: Atrial Fibrillation/Flutter (hx or current) CV meds: ASA: Yes, Anticoagulant: Yes (eliquis) - Physical Exam General: alert & oriented x3 HEENT: mucus membranes moist Neck: supple neck Cardiac: regular rate and rhythm Lungs: clear to auscultation Neuro: weakness Abdomen: active bowel sounds, soft, non-tender Skin: clear Musculoskeletal: no pain - Labs Result Diagrams: 05/30/19 05:14 05/30/19 20:33 Troponin/CKMB CK-MB (CK-2) 1.5 ng/mL (0-6.6) 05/29/19 07:59 Troponin I 0.140 ng/mL (< 0.028) H 05/29/19 14:19 - Telemetry Sinus rhythms and dysrhythmias: sinus rhythm - Assessment/Plan Assessment/Plan: 1. Acute CVA, recurrent. 2. Paroxysmal Afib 3. Pancreatic cancer metastatic to the liver. PLAN: - He will follow up with EP as an outpatient for Watchman device placement.. - Will sign off. Please call with any questions. - Continue full dose Eliquis at 5 mg BID. - May discharge to inpt rehab at any time from cardiac perspective. - Will sign off. Please call with any questions.
[2019-06-02] MEDS: Atorvastatin Calcium 40 MG TAB PO SCH (20:45)
[2019-06-03] MEDS: Levothyroxine Sodium 100 MCG TAB PO SCH (05:46)
[2019-06-03] MEDS: Apixaban 5 MG TAB PO SCH (09:27)
[2019-06-03] MEDS: Pancrelipase DR 12000 1 CAP PO SCH ×3 (09:27→16:40)
[2019-06-03] MEDS: Aspirin 81 mg Enteric Coated Tablet PO SCH (09:27)
[2019-06-03] MEDS ORDERED: Morphine 2 MG/ML SYRINGE SLOW IVP SCH (10:45)
[2019-06-03] MEDS ORDERED: ALPRAZolam 0.25 MG TAB PO PRN (11:05)
--- NOTE | 2019-06-03 11:29 | PDOC.HOSPP ---
- Subjective Encounter Date: 06/03/19 Encounter Time: 10:00 Subjective: c/o back pain due to positioning, wants xanax bid no improvement in left extr motor strength yet he stood up with PT and trying to balance out his left side, says he is getting better at it. - Objective Vital Signs & Weight: Vital Signs (12 hours) Temp Pulse Resp BP BP Pulse Ox 06/03/19 09:27 74 167/78 H 06/03/19 07:48 97.5 F L 74 16 167/78 H 97 06/03/19 04:00 97.7 F 20 160/84 H 96 Weight Admit Weight 167 lb 5 oz Weight 167 lb 5 oz I&O: 06/02/19 06/03/19 06/04/19 06:59 06:59 06:59 Intake Total 730 1020 537 Balance 730 1020 537 Result Diagrams: 05/30/19 05:14 05/30/19 20:33 Hospitalist ROS - Medication Medications: Active Medications Generic Name Dose Route Start Last Admin Trade Name Freq PRN Reason Stop Dose Admin Acetaminophen 650 mg 05/29/19 09:52 06/02/19 22:57 Tylenol PO 650 mg Q4H PRN Administration Headache/Fever/Mild Pain (1-3) Lipase/Protease/Amylase 1 cap 05/31/19 17:00 06/03/19 09:27 [place] [id number] PO 1 cap TID-WM [facility] Administration Apixaban 5 mg 05/29/19 21:00 06/03/19 09:27 Eliquis PO 5 mg BID [facility] Administration Aspirin 81 mg 05/30/19 09:00 06/03/19 09:27 Ecotrin PO 81 mg DAILY [facility] Administration Atorvastatin Calcium 40 mg 05/29/19 21:00 06/02/19 20:45 Lipitor PO 40 mg HS DAWSON Administration Diltiazem HCl 120 mg 05/30/19 09:00 06/03/19 09:27 Cardizem Cd PO 120 mg DAILY [facility] Administration Levothyroxine Sodium 100 mcg 05/30/19 06:00 06/03/19 05:46 Synthroid PO 100 mcg 0600 [facility] Administration Morphine Sulfate 2 mg 06/03/19 10:45 06/03/19 10:36 Morphine SLOW IVP 06/03/19 12:00 2 mg NOW DAWSON Administration Sertraline HCl 25 mg 05/29/19 21:00 06/02/19 20:45 Zoloft PO 25 mg HS DAWSON Administration Sodium Chloride 10 ml 05/29/19 09:52 06/01/19 20:38 Flush - Normal Saline IVF 10 ml PRN PRN Administration Saline Flush - Exam General Appearance: awake alert Eye: PERRL, anicteric sclera ENT: no oropharyngeal lesions, moist mucosa Neck: supple, no JVD Heart: RRR, no murmur Respiratory: no wheezes, no rales Gastrointestinal: soft, non-tender, non-distended, normal bowel sounds Extremities: no cyanosis, no edema Neurological: hemiplegia Psychiatric: normal affect, A&O x 3 Hosp A/P (1) Acute CVA (cerebrovascular accident) Code(s): I63.9 - CEREBRAL INFARCTION, UNSPECIFIED Status: Acute (2) HTN (hypertension) Code(s): I10 - ESSENTIAL (PRIMARY) HYPERTENSION Status: Chronic Qualifiers: Hypertension type: essential hypertension Qualified Code(s): I10 - Essential (primary) hypertension (3) Paroxysmal A-fib Code(s): I48.0 - PAROXYSMAL ATRIAL FIBRILLATION Status: Suspected (4) Dyslipidemia Code(s): E78.5 - HYPERLIPIDEMIA, UNSPECIFIED Status: Chronic (5) Pancreatic cancer metastasized to liver Code(s): C25.9 - MALIGNANT NEOPLASM OF PANCREAS, UNSPECIFIED; C78.7 - SECONDARY MALIG NEOPLASM OF LIVER AND INTRAHEPATIC BILE DUCT Status: Chronic - Plan MRI confirms right MARIAM cva, watershed infarct h/o old left frontal and right parietal cva is on full dose eliquis with asp continue cardizem cd, synthroid, creon tid ldl is 48 PT/OT/speech ongoing eval awaiting insurance approval to rehab, may dc anytime if accepted has h/o pancreatic cancer from atleast 5yrs with prior whipple's procedure and mets to liver. has not been able to mobilize yet with PT/OT but says he is getting better at balancing his left side now, will need rehab d/w , will have outpt watchman device in 2-4 wks arranged at [facility] in [place].
[2019-06-03 15:29] VITALS: TEMP 98.5
[2019-06-03 15:41] VITALS: BP 150/73
--- NOTE | 2019-06-03 20:32 | DIS ---
DATE OF ADMISSION: 05/29/2019 DATE OF DISCHARGE: 06/03/2019 DISCHARGE DISPOSITION: Inpatient rehab. PRIMARY DISCHARGE DIAGNOSES: Acute cerebrovascular accident with right anterior cerebral artery infarct, history of paroxysmal atrial fibrillation, hypertension, dyslipidemia, history of pancreatic cancer with metastasis to liver. Current chemotherapy has been held due to cerebrovascular accident. PROCEDURES DONE DURING HOSPITALIZATION: MRI brain showed acute infarct in the region of right anterior cerebral artery distribution, multiple small punctate acute infarcts bilaterally seen with watershed type distribution infarct, old left frontal and right parietal infarcts. CT angio of brain showed no significant extracranial or intracranial vascular disease. Echo with 2D Doppler showed EF of 60% to 65%. There was diastolic dysfunction, moderate aortic regurgitation was seen. H and H 12 and 36, platelet count 119, MCV 95, BUN 14, creatinine 1.4. Total cholesterol 125, triglycerides 49, LDL 48, HDL 67. INPATIENT CONSULT: Dr. Mendez for Cardiology, Dr. Vy Burden for Electrophysiology. MEDICATIONS: 1. Eliquis 5 mg p.o. twice daily. 2. Aspirin 81 mg p.o. daily. 3. Xanax 0.25 mg p.o. twice daily p.r.n. 4. Lipitor 40 mg p.o. nightly. 5. Cardizem CD 120 mg p.o. daily. 6. Lisinopril 2.5 mg p.o. daily. 7. Zoloft 25 mg p.o. daily. 8. Levothyroxine 100 mcg p.o. daily. 9. Creon 12,000 units p.o. three times daily. ALLERGIES: ALLERGIC TO AMIODARONE. DISCHARGE PLAN: The patient to follow up with , his primary care physician in 1 week. He needs to follow up with Dr. Gary Fitch on 06/21/2019 at 02:00 p.m. for possible placement of a Watchman device. BRIEF COURSE DURING HOSPITALIZATION: The patient initially got admitted on the with complaints of left-sided weakness. The patient has had history of paroxysmal atrial fibrillation and had sustained CVA on the same side 2 months back. He had a Holter/event monitor placed by Dr. Balderas, cable rigger at [facility] and he was placed on Eliquis after being found with likely paroxysmal atrial fibrillation. He also had chronic history of pancreatic cancer which was diagnosed in January 2015 with mets to liver. He has had Whipple procedure for the same and was on Sutent, which has been held from last 2 months due to CVA. On examination, the patient had dense left hemiplegia. He has had MRI done which confirmed left MARIAM stroke. This was a watershed infarct and likely due to underlying atrial fibrillation. He had discontinued aspirin after taking it for 2 weeks after recent CVA 2 months back due to increased ecchymosis in the skin. He was placed back on aspirin now. He was evaluated by Dr. Mendez and Dr. Mcclellan. The patient will likely have a Watchman device in 4-6 weeks. Followup has been set up to see Dr. Gary Fitch on June 21 for the same. This is due to patient having a recurrent CVA despite being on Eliquis and inability to tolerate aspirin. The patient still has dense left hemiplegia and is slowly learning to balance his left side using his dominant right upper and lower extremities. He has not ambulated yet and he is being discharged to inpatient rehab. Please note, his discharge plan was held up for the last 3 days due to insurance approval to go to rehab. He is otherwise hemodynamically stable and will be shortly discharged. A total of 35 minutes was spent on discharge plan. Please see a [id number] documentation on LogMe[employer] for the day of discharge. Job ID: [id number]
== END 2019-06-03 19:06 | DRG 65 ==
LOC: ERS 06:56 → 2SE 09:15
PROVIDERS: ADMIT Internal Medicine; ATTEND Internal Medicine
PROC: 3E0234Z Introduction of Serum, Toxoid and Vaccine into Muscle, Percutaneous Approach (ICD-10-PCS; principal; 2019-05-30)
DX: I63.521 Cerebral infarction due to unspecified occlusion or stenosis of right anterior cerebral artery (principal); G81.94 Hemiplegia, unspecified affecting left nondominant side; C25.9 Malignant neoplasm of pancreas, unspecified; C78.7 Secondary malignant neoplasm of liver and intrahepatic bile duct; I48.0 Paroxysmal atrial fibrillation; I10 Essential (primary) hypertension; E78.5 Hyperlipidemia, unspecified; R29.706 NIHSS score 6; R40.2362 Coma scale, best motor response, obeys commands, at arrival to emergency department; R40.2142 Coma scale, eyes open, spontaneous, at arrival to emergency department; R40.2252 Coma scale, best verbal response, oriented, at arrival to emergency department; E03.9 Hypothyroidism, unspecified; I08.0 Rheumatic disorders of both mitral and aortic valves; Z88.8 Allergy status to other drugs, medicaments and biological substances; Z79.899 Other long term (current) drug therapy; Z79.01 Long term (current) use of anticoagulants; Z79.890 Hormone replacement therapy; Z86.73 Personal history of transient ischemic attack (TIA), and cerebral infarction without residual deficits; Z23 Encounter for immunization
CPT/HCPCS: 36415; 36416; 70450; 70496; 70498; 70551; 71045; 80048; 80053; 80061; 80307; 82550; 82553; 83605; 83735; 84484; 85025; 85610; 85730; 86780; 86850; 86900; 86901; 87324; 87449; 90471; 90670; 93005; 93306; G0009; J2270; Q9967

== ENCOUNTER 2019-10-14 20:38 | Emergency (ER) | payer BC ==
[2019-10-14 21:57] LABS: Bilirubin Negative (Negative); Calcium Oxalate Crystals 4+ HPF (None Seen); Clarity Extra Turbid (Clear); Glucose, Urine (Dipstick) Normal (Negative); Leukocyte 500 Leu/uL (Negative); Nitrite 2+ (Negative); Protein, Urine (Dipstick) 50 mg/dL (Neg-Trace); RBC/HPF 21-50 HPF (0-3); Squamous Epithelial 0-3 HPF (0-3); Urobilinogen Normal mg/dL (Less than 2); WBC/HPF Greater than 50 HPF (0-3)
[2019-10-14 21:58] LABS: Bacteria/HPF 1+ HPF (None Seen); Blood, Urine 1+ (Negative)
--- NOTE | 2019-10-14 23:29 | CT ---
CT BRAIN NONCONTRAST: DATE: 10/14/2019 11:12 PM HISTORY: 59-year-old male status post acute head trauma from fall and dizziness, with loss of consciousness. COMPARISON: 05/29/2019 FINDINGS: No acute intracranial hemorrhage, mass effect, midline shift, extra-axial fluid collection, calvarial fracture, or obstructive hydrocephalus. Moderate-sized old right paramedian frontal lobe infarctions in right MARIAM territory demonstrated on t he current CT, was not visible on the previous brain CT of 05/29/2019, but was demonstrated to be an acute infarction on the MRI of that same day. There is a new finding of mild ex vacuo dilation of the frontal horn of the right lateral ventricle associated with that. Moderate-sized old right lateral parietal infarction in right MCA territory again noted. Tiny old lacunar infarction at posterior aspect of right basal ganglia again noted. Left anterolateral lower frontal old infarction in left MCA territory. Small old left subcortical and deep white matter lateral frontal infarction again noted. A very small old infarction in right PICA territory right cerebellum. IMPRESSION: 1. No acute intracranial findings. 2. Multiple old brain infarctions of varying sizes.
[2019-10-14] MEDS ORDERED: Adacel (T-DAP) 0.5 ML SYRINGE ONE (23:31)
== END 2019-10-15 00:03 | disposition home or self-care (01) ==
LOC: ERS 20:38
DX: S00.03XA Contusion of scalp, initial encounter (principal); E03.9 Hypothyroidism, unspecified; I10 Essential (primary) hypertension; Z86.73 Personal history of transient ischemic attack (TIA), and cerebral infarction without residual deficits; Z79.899 Other long term (current) drug therapy; W22.8XXA Striking against or struck by other objects, initial encounter
CPT/HCPCS: 70450; 81003; 81015; 90471; 90715

== ENCOUNTER 2019-10-17 12:29 | Inpatient (IN) | payer BC, OTHER ==
[2019-10-17] MEDS ORDERED: Iopamidol 370 76% 100 ML VIAL ONE (13:43)
[2019-10-17 14:45] LABS: #Eosinphils 0.1 thou/uL (0.0-0.7); #Lymphocytes 0.7 thou/uL (1.20-3.40); #Monocytes 0.4 thou/uL (0.11-0.59); #Neutrophils 7.6 thou/uL (1.40-6.50); %Basophils 0.1 % (0.0-1.0); %Eosinophils 0.8 % (0.0-10.0); %Lymphocytes 7.9 % (21.0-51.0); %Monocytes 4.9 % (0.0-10.0); %Neutrophils 86.3 % (42.0-75.0); Hemoglobin 9.1 g/dL (14.0-18.0); Mean Corpuscular HGB CONC 32.8 g/dL (32.0-36.0); Mean Corpuscular Hemoglobin 29.7 pg (27.0-31.0); Mean Corpuscular Volume 90.4 fL (78.0-98.0); Mean Platelet Volume 8.8 fL (7.4-10.4); Platelet Count 139 thou/uL (130-400); RBC Distribution Width 12.3 % (11.5-14.5); Red Blood Cell (RBC) Count 3.08 mill/uL (4.70-6.10); White Blood Cell (WBC) Count 8.8 thou/uL (4.8-10.8)
[2019-10-17 14:49] LABS: Bilirubin Negative (Negative); Blood, Urine Large (Negative); Glucose, Urine (Dipstick) Negative (Negative); Leukocyte Moderate (Negative); Nitrite Positive (Negative); Protein, Urine (Dipstick) 30 mg/dL (Neg-Trace); Urobilinogen 0.2 mg/dL (Less than 2)
[2019-10-17 14:51] LABS: Clarity CLOUDY (Clear)
[2019-10-17 14:53] LABS: Bacteria/HPF 2+ HPF (None Seen); Squamous Epithelial 0-3 HPF (0-3)
[2019-10-17] MEDS ORDERED: Cefepime 2 GM VIAL ONE (14:58)
[2019-10-17] MEDS ORDERED: Acetaminophen 500 MG TAB ONE (14:58)
[2019-10-17] MEDS ORDERED: Vancomycin 1 GM/200 ML BAG ONE (14:58)
[2019-10-17 15:08] LABS: ALT (SGPT) 45 U/L (8-55); AST (SGOT) 45 U/L (5-34); Albumin 3.1 g/dL (3.4-4.8); Alkaline Phosphatase 272 U/L (40-110); Anion Gap 15 mmol/L (10-20); BUN (Urea Nitrogen) 17 mg/dL (8.4-25.7); Bilirubin, Total 0.3 mg/dL (0.2-1.2); Calc. Creatinine Clearance 0 mL/min (70-130); Calcium 8.4 mg/dL (7.8-10.44); Carbon Dioxide 23 mmol/L (23-31); Chloride 102 mmol/L (98-107); Estimated GFR-MDRD 65; Globulin 2.7 g/dL (2.4-3.5); Glucose 79 mg/dL (80-115); Lipase Less than 4 U/L (8-78); Magnesium 1.6 mg/dL (1.6-2.6); Potassium 4.3 mmol/L (3.5-5.1); Protein, Total 5.8 g/dL (5.8-8.1); Sodium 136 mmol/L (136-145)
[2019-10-17 15:19] LABS: Base Excess-Venous -0.7 mmol/L (-2.0 to 3.0); Bicarbonate (HCO3v) 25.8 mmol/L (22.0-28.0); CO2 Tension (PvCO2) 50.3 mmHg (40.0-50.0); Calcium, Ionized 1.13 mmol/L (See Comments:); Chloride 103 mmol/L (98-107); Hemoglobin - Calc 10.3 g/dL (14.0-18.0); Potassium 3.9 mmol/L (3.5-5.1); Sodium 140 mmol/L (138-145); T. Carbon Dioxide 27.4 mmol/L (22.0-28.0); vO2 Saturation-calc 73.4 % (60.0-85.0)
--- NOTE | 2019-10-17 15:27 | RAD ---
EXAM: CHEST ONE VIEW HISTORY: Weakness. COVID exposure. COMPARISON: 05/29/2019 FINDINGS: Cardiac silhouette is magnified by projection. Pulmonary vasculature is within normal limits The lung s are clear. Degenerative changes are seen in the spine. Increased density material overlying right axillary region and proximal right upper extremity on prior exam is not visualized on this exam. IMPRESSION: No acute cardiopulmonary process.
[2019-10-17] MEDS ORDERED: Ketorolac Tromethamine 30 MG/ML VIAL ONE (15:52)
[2019-10-17 16:39] LABS: Base Excess-Venous -0.5 mmol/L (-2.0 to 3.0); Bicarbonate (HCO3v) 26.4 mmol/L (22.0-28.0); CO2 Tension (PvCO2) 53.5 mmHg (40.0-50.0); Calcium, Ionized 1.14 mmol/L (See Comments:); Chloride 103 mmol/L (98-107); Hemoglobin - Calc 9.9 g/dL (14.0-18.0); Potassium 3.9 mmol/L (3.5-5.1); Sodium 139 mmol/L (138-145); vO2 Saturation-calc 74.6 % (60.0-85.0)
[2019-10-17] MEDS ORDERED: levETIRAcetam 500 MG/100 ML PREMIX BAG ONE (16:55)
[2019-10-17] MEDS ORDERED: niCARdipine 25 MG in Sodium Chloride 0.9% 250 ML 240 ML IVPB SCH (17:00)
[2019-10-17] MEDS ORDERED: Sodium Chloride 0.9% 1,000 ML IV SCH (17:05)
[2019-10-17] MEDS ORDERED: Bisacodyl 10 MG SUPP PR PRN (17:05)
[2019-10-17] MEDS ORDERED: Acetaminophen 650 MG Suppository PR PRN (17:05)
--- NOTE | 2019-10-17 17:09 | CT ---
CT HEAD WITHOUT IV CONTRAST COMPARISON: 10/14/2019 HISTORY: Fever and global weakness for one day. TECHNIQUE: Axial CT imaging at 5 mm intervals from vertex through skull base without contrast FINDINGS: Again noted are multiple areas of encephalomalacia related to remote areas of infarction seen in the right paramedian frontal region, right lateral frontal parietal region and in the left anterolateral frontal region unchanged when compared to the prior study. Additional foci of diminishe d density are also seen within the subcortical white matter of each frontal lobe suggesting remote areas of infarction. Stable remote lacunar infarction in the right basal ganglia is again present. Ti ny remote infarction is again seen in the right cerebellar hemisphere. There is no evidence of an acute cortical infarction, hemorrhage, mass effect, or midline shift. The ventricular system is normal in size, shape, and position. Visualized paranasal sinuses are clear. Osseous structures appear intact. IMPRESSION: 1. No acute intracranial abnormality demonstrated. 2. Multiple remote scattered infarctions throughout each cerebral hemisphere and in the right cerebel lar hemisphere similar to prior exam.
[2019-10-17] MEDS ORDERED: Diltiazem HCl 125 MG, Admixture Fee 1 EACH in Sodium Chloride 0.9% 100 ML IVPB SCH (17:15)
[2019-10-17] MEDS ORDERED: Diltiazem 125 MG in Sodium Chloride 0.9% 100 ML IVPB SCH (17:15)
--- NOTE | 2019-10-17 17:15 | CT ---
CT Chest WO Con History: Sepsis. Tachypnea. Comparison: Chest radiograph same day Findings: There are cluster of nodules within the right upper lobe anterior segment was do abut the m inor fissure which overall in total this cluster measures 12 mm in AP dimension with a transverse dimension of 4 mm and a craniocaudal dimension of 9 mm. Spelled reflect area of scar or old granuloma tous disease. No confluent airspace consolidation, pneumothorax, or effusion. No groundglass opacities. No evidence for viral infectious process. The aortic contour is normal. There is markedly abnormal attenuation of the liver with multiple hypod ensities incompletely evaluated as well as an intraparenchymal calcification along the anterior and posterior right lobe of the liver. Mild perinephric stranding. Spleen is unremarkable. Impression: 1. Cluster of small nodules along the right upper lobe abutting the major fissure likely sequela of o ld granuloma disease or treated infection. Follow-up CT chest in 3 months recommended. 2. No evidence for an atypical viral infectious process. 3. Although limited on this noncontrast chest CT examination, there is markedly abnormal appearance o f the liver with multiple liver appears be hypodense masses. Dedicated liver protocol CT or MRI is highly recommended. CODE: CR
[2019-10-17] MEDS ORDERED: Lorazepam 2 MG/ML VIAL ONE ×2 (17:29→17:30)
[2019-10-17] MEDS ORDERED: Metoprolol Tartrate 5 MG/5 ML VIAL ONE (17:48)
[2019-10-17] MEDS ORDERED: cefTRIAXone\\ROCEPHIN 2 GM in Sodium Chloride 0.9% 100 ML IVPB SCH (18:00)
[2019-10-17] MEDS ORDERED: Metoprolol Tartrate 5 MG/5 ML VIAL IVP SCH (18:00)
[2019-10-17] MEDS ORDERED: Metoprolol Tartrate 5 MG/5 ML VIAL IVP PRN (18:00)
[2019-10-17 18:14] LABS: Acetaminophen Less than 6.0 mcg/mL (10.0-30.0); Alcohol Less than 10 mg/dL (Less than 10); Salicylate Less than 8.0 mg/dL (15.0-30.0)
--- NOTE | 2019-10-17 18:14 | HP ---
REASON FOR ADMISSION: Sepsis, possible invasive urinary tract infection, seizures with history of seizure disorder, acute metabolic encephalopathy, atrial fibrillation with RVR. HISTORY OF PRESENTING ILLNESS: Please note majority of this history is obtained by talking to the patient's , . Hallie Baker. He apparently had been feeling very fatigued and weak. He has also not been eating from last 2 to 3 days now. He has had off and on diarrhea as well. He had a recent urinary tract infection and was on Macrobid for the same. mentions that he had been to ER 2 or 3 days back when he hit his head. The patient has been off Sutent from last 10 months, which he was taking for pancreatic cancer and now he is scheduled for radiation therapy from October 19 for the pancreatic cancer. The also mentions that he has been shaking his different extremities at different times at home. She was essentially thinking it was chills initially. Here in the ER, the patient has had a short episode of tonic-colonic seizure. He has history of dense hemiplegia on the left side. Also, the patient has issue with left gaze restriction now. He has no complaints of chest pain or palpitation. No complaints of shortness of breath. He has had exposure to COVID-19 when one of his cousins visited him 10 to 12 days back for nearly 4-hour exposure at home. PAST MEDICAL AND SURGICAL HISTORY: History of pancreatic cancer with prior Whipple procedure and follows up at [facility]. He is scheduled for radiation therapy, likely palliative radiation. History of chronic atrial fibrillation, hypothyroidism, hypertension, history of vitale with skin grafting in right upper extremity with contraction, claw hand, biceps tendon repair, history of CVA with left hemiplegia, depression, seizure disorder, diabetes likely due to the pancreatic insufficiency. CURRENT MEDICATIONS: The patient is on; 1. Multivitamin one tablet once daily. 2. Tylenol 3 p.r.n. 3. Vitamin D3 of 5000 units p.o. daily. 4. Aspirin 81 mg p.o. daily. 5. Atorvastatin 40 mg p.o. at bedtime. 6. Cardizem CD 120 mg p.o. daily. 7. Finasteride 5 mg p.o. daily. 8. Keppra 500 mg p.o. twice daily. 9. Levothyroxine 50 mcg p.o. daily. 10. Lisinopril 20 mg p.o. daily. 11. Melatonin 3 mg p.o. at bedtime. 12. Methylphenidate 10 mg p.o. twice daily. 13. Creon 12,000 units one capsule three times daily. 14. Protonix 40 mg daily. 15. Sertraline 50 mg daily. 16. Januvia 50 mg daily. 17. Flomax 0.4 mg daily. 18. Trazodone 50 mg p.o. at bedtime. ALLERGIES: AMLODIPINE AND AMIODARONE. PERSONAL HISTORY: Does not abuse alcohol or drugs. No history of smoking. Lives with his . FAMILY HISTORY: Mother has history of heart failure and coronary artery disease. Father at the age of 52 with alcohol-related complications. CODE STATUS: The patient is a do not attempt to resuscitate, this was discussed with him and his . REVIEW OF SYSTEMS: CONSTITUTIONAL: Negative for weight loss or gain, ability to conduct usual activities. SKIN: Negative for rash, itching. EYES: Negative for double vision, pain. ENT/MOUTH: Negative for nose bleeding, neck stiffness, pain, tenderness. CARDIOVASCULAR: Negative for palpitations, dyspnea on exertion, orthopnea. RESPIRATORY: Negative for shortness of breath, wheezing, cough, hemoptysis, fever or night sweats. GASTROINTESTINAL: Negative for poor appetite, abdominal pain, heartburn, nausea , vomiting, constipation, or diarrhea. GENITOURINARY: Negative for urgency, frequency, dysuria, nocturia. MUSCULOSKELETAL: Negative for pain, swelling. NEUROLOGIC/PSYCHIATRIC: Negative for anxiety, depression. ALLERGY/IMMUNOLOGIC: Negative for skin rash, bleeding tendency. PHYSICAL EXAMINATION: GENERAL: The patient is a 59-year-old male, who is currently in mild-to- moderate distress with seizures. VITAL SIGNS: Blood pressure 156/90; pulse 136 per minute; respiratory rate 22 per minute; temperature is 99 at present, had 104 degrees rectal on arrival; saturating 92% on room air. NECK: Supple. No elevated JVD. HEENT: Eyes; extraocular muscles are restricted with left gaze deficiency. The pupils are 3 mm and reacting to light. Oral cavity, mucous membranes are dry. No exudates or congestion. CARDIOVASCULAR: S1 and S2 heard. Tachycardic, likely afib rhythm. RESPIRATORY: Air entry 1+ bilateral. Scattered rhonchi plus bilateral. ABDOMEN: Soft. Bowel sounds heard. No tenderness, rigidity, or guarding. EXTREMITIES: Left lower extremity, there is edema. No calf tenderness as such. CENTRAL NERVOUS SYSTEM: The patient has known left hemiplegia with left gaze restriction, but he is communicating well. No other cranial nerve deficits noted. The patient likely might be having off and on seizures. He randomly moves extremities, but freely moves the right lower extremity with tonic colonic episodes in the right lower extremity, sometimes seen in the left upper and right upper extremities as well in between. PSYCHIATRIC: Cannot be assessed as the patient is not fully oriented with multiple active issues at present. IMAGING STUDIES: EKG done shows initial EKG was normal sinus rhythm at 87. It is a poor quality EKG as the patient is shaking with chills. A repeat EKG done shows atrial fibrillation with RVR around 140 beats per minute. Initial chest x-ray done shows no acute cardiopulmonary abnormality. CT brain without contrast done shows no acute intracranial abnormality. Multiple remote scattered infarcts seen in both hemispheres and right cerebellar hemisphere as well. CT chest shows small nodules in the right upper lobe. No evidence of atypical viral infectious process. Liver appears to have multiple hypodense masses, likely mets. LABORATORY DATA: White count of 8.8, hemoglobin and hematocrit of 9 and 27, platelet count 139, MCV is 90 with 86% neutrophils. Venous blood gas done shows a pH of 7.30, pCO2 of 53, PO2 of 44. Electrolytes stable. BUN 17 and creatinine 1.1. Serum glucose 79, AST 45, ALT 45, alkaline phosphatase 272, T-bilirubin 0.3. Lactic acid is normal at 1.1. Albumin is 3.1. Troponin-I less than 0.01. BNP is 59. Lipase is less than 4. UA shows signs of UTI. Group A Streptococcus throat swab is negative. Influenza A and B antigen nasal swab is negative. CLINICAL IMPRESSION AND PLAN: The patient will be admitted to [facility] for sepsis, seizure with history of chronic seizure disorder, atrial fibrillation with rapid ventricular response, metabolic encephalopathy likely due to sepsis and seizure at present. We will give him 15 mg of IV Cardizem push and 5 mg an hour thereafter , 500 mg of Keppra IV stat and 500 IV b.i.d. thereafter, received 30 mL/kg sepsis protocol fluid in the ER. COVID-19 swab has been obtained in view of exposure to his cousin for 4 hours around 10 to 12 days back. We will continue his Eliquis, aspirin, Lipitor, oral Cardizem, Synthroid, Ritalin, Zoloft as before. The patient will be on ceftriaxone and vancomycin for now until cultures are back. We will obtain consultation with Dr. Mendez, his live hanger, and Dr. Solorio on-call for Pulmonary Critical Care. Job ID: [id number] [id number]
[2019-10-17 18:17] LABS: Medtox Reader # READER 4
[2019-10-17 18:18] LABS: Amphetamine Not Detected (NotDetected); Barbiturates Screen Not Detected (NotDetected); Benzodiazepine Screen Not Detected (NotDetected); Cocaine Metabolite Screen Not Detected (NotDetected); Medtox Control Line Valid? VALID (VALID); Methadone Not Detected (NotDetected); Methamphetamine Not Detected (NotDetected); Opiate Screen Detected (NotDetected); Oxycodone Screen Not Detected (NotDetected); Phencyclidine (PCP) Not Detected (NotDetected); THC/Cannabinoid Screen Not Detected (NotDetected); Tricyclic Screen Not Detected (NotDetected)
[2019-10-17 18:31] LABS: Free T4 (Free Thyroxine) 1.39 ng/dL (0.70-1.48); T4 12.9 ug/dL (4.87-11.72); Thyroid Stimulating Hormone 1.8453 uIU/mL (0.35-4.94)
[2019-10-17 19:44] VITALS: BMI 21.1
[2019-10-17 20:28] LABS: Lactic Acid 1.3 mmol/L (0.5-2.2)
--- NOTE | 2019-10-17 21:00 | CT ---
CTA Angio Chest W WO Con History: Tachycardia Comparison: Chest CT same day Findings: CT angiogram of the chest performed after the intravenous administration of contrast. 3-D r endering provided. Evaluation for embolism is limited due to the delayed phase of contrast. No proximal segmental pulmon angelito arterial filling defect. Remainder the findings of the chest are unchanged. There is gas in the left lobe of the liver which may be biliary. Multiple enhancing masses of the dereje er. Impression: 1. Within the limits of this exam, no proximal segmental pulmonary arterial filling defect. 2. Multiple enhancing masses of the liver. 3. Suspected biliary gas left lobe of the liver. 4. Moderately distended loops of bowel in the upper abdomen on the tomogram. Abdomen radiographs mitchell mmended clinically warranted.
--- NOTE | 2019-10-18 | CT ---
CT Brain WO Con History: Fall from bed Comparison: CT brain same day Findings: Multifocal encephalomalacia is similar. No hemorrhage. No midline shift. No mass effect. Calvarium is intact. Paranasal sinuses and mastoids are clear. Impression: No acute posttraumatic intracranial sequelae.
[2019-10-18] MEDS: Famotidine/PF 20 mg/2ml Vial SLOW IVP SCH ×2 (00:57→09:38)
[2019-10-18] MEDS: Atorvastatin Calcium 40 MG TAB PO SCH ×2 (00:58→21:41)
[2019-10-18] MEDS: Apixaban 5 MG TAB PO SCH ×3 (00:58→21:40)
[2019-10-18] MEDS ORDERED: levETIRAcetam 500 MG TAB PO SCH (01:15)
[2019-10-18] MEDS: Ondansetron PF 4 MG/2 ML Vial IVP PRN (03:32)
[2019-10-18] MEDS: Vancomycin HCl 1.25 GM in Sodium Chloride 0.9% 250 ML 300 ML IVPB SCH ×2 (03:50→16:41)
[2019-10-18 04:08] LABS: INR-International Normal Ratio 1.2; Prothrombin Time 15.3 SEC (12.0-14.7)
[2019-10-18 04:22] LABS: ALT (SGPT) 55 U/L (8-55); AST (SGOT) 43 U/L (5-34); Albumin 3.5 g/dL (3.4-4.8); Alkaline Phosphatase 274 U/L (40-110); Anion Gap 17 mmol/L (10-20); BUN (Urea Nitrogen) 18 mg/dL (8.4-25.7); Bilirubin, Total 0.3 mg/dL (0.2-1.2); Calc. Creatinine Clearance 62 mL/min (70-130); Calcium 8.7 mg/dL (7.8-10.44); Carbon Dioxide 23 mmol/L (23-31); Chloride 102 mmol/L (98-107); Estimated GFR-MDRD 65; Globulin 2.9 g/dL (2.4-3.5); Glucose 177 mg/dL (80-115); Potassium 3.7 mmol/L (3.5-5.1); Protein, Total 6.4 g/dL (5.8-8.1); Sodium 138 mmol/L (136-145)
[2019-10-18 04:40] LABS: Thyroid Stimulating Hormone 1.5091 uIU/mL (0.35-4.94)
[2019-10-18 05:48] LABS: Free T4 (Free Thyroxine) 1.36 ng/dL (0.70-1.48)
[2019-10-18] MEDS: Levothyroxine Sodium 50 MCG TAB PO SCH (05:51)
[2019-10-18] MEDS ORDERED: Levothyroxine Sodium 25 MCG TAB PO SCH (06:00)
[2019-10-18 06:44] LABS: Hemoglobin 11.3 g/dL (14.0-18.0); Mean Corpuscular HGB CONC 32.8 g/dL (32.0-36.0); Mean Corpuscular Hemoglobin 28.9 pg (27.0-31.0); Mean Corpuscular Volume 88.2 fL (78.0-98.0); Mean Platelet Volume 8.4 fL (7.4-10.4); Platelet Count 268 thou/uL (130-400); RBC Distribution Width 12.5 % (11.5-14.5); Red Blood Cell (RBC) Count 3.89 mill/uL (4.70-6.10); White Blood Cell (WBC) Count 37.8 thou/uL (4.8-10.8)
[2019-10-18] MEDS ORDERED: Prevnar 13-Val Conj/PF 0.5 ML SYRINGE IM ONE (07:00)
[2019-10-18] MEDS ORDERED: FLU VACC QS2019-20(6MOS UP)/PF 60 MCG/0.5 ML SYRINGE IM ONE (07:00)
[2019-10-18 07:38] LABS: Band 21 % (5-11); Lymphocytes 1 % (21-51); MDiff Complete? YES; Monocytes 5 % (0-10); Neutrophil 73 % (42-75); Platelet Morphology Comment Appears Adequate; RBC Morphology Normal; Vacuoles SLIGHT
[2019-10-18] MEDS: MEROPENEM 1 GM/50 ML 1 GM in Premix Bag 1 BAG IVPB SCH ×3 (09:37→23:22)
[2019-10-18] MEDS: Aspirin 81 mg Enteric Coated Tablet PO SCH (09:40)
[2019-10-18] MEDS: Pancrelipase DR 12000 1 CAP PO SCH ×3 (09:41→17:49)
[2019-10-18] MEDS: levETIRAcetam 500 MG TAB PO SCH ×2 (09:41→21:41)
--- NOTE | 2019-10-18 11:39 | PDOC.HOSPP ---
- Subjective Encounter Date: 10/18/19 Encounter Time: 07:45 Subjective: awake, follows verbal stimuli no further seizures he keeps moving his right LE freq but can hold it still if needed to. has sob, no sputum no chest pain or palp - Objective Vital Signs & Weight: Vital Signs (12 hours) Temp 10/18/19 04:34 98.0 F Weight Weight 143 lb 4.8 oz Most Recent Monitor Data Heart Rate from ECG 94 NIBP 151/91 NIBP BP-Mean 111 Respiration from ECG 20 SpO2 99 Result Diagrams: 10/18/19 06:24 10/18/19 03:37 Hospitalist ROS - Medication Medications: Active Medications Generic Name Dose Route Start Last Admin Trade Name Freq PRN Reason Stop Dose Admin Lipase/Protease/Amylase 1 cap 10/18/19 08:00 10/18/19 09:[address] [place] [id number] PO 1 cap TID-WM DAWSON Administration Apixaban 5 mg 10/17/19 21:00 10/18/19 09:41 Eliquis PO 5 mg BID DAWSON Administration Aspirin 81 mg 10/18/19 09:00 10/18/19 09:40 Ecotrin PO 81 mg DAILY DAWSON Administration Atorvastatin Calcium 40 mg 10/17/19 21:00 10/18/19 00:58 Lipitor PO 40 mg HS DAWSON Administration Diltiazem HCl 120 mg 10/18/19 09:00 10/18/19 09:41 Cardizem Cd PO 120 mg DAILY DAWSON Administration Famotidine 20 mg 10/17/19 21:00 10/18/19 09:38 Pepcid SLOW IVP 20 mg Q12HR DAWSON Administration Sodium Chloride 1,000 mls @ 40 mls/hr 10/17/19 17:05 10/17/19 19:25 Normal Saline 0.9% IV 1,000 mls .Q24H DAWSON Administration Vancomycin HCl 1.25 gm/ Sodium 300 mls @ 200 mls/hr 10/18/19 03:00 10/18/19 03:50 Chloride IVPB 300 mls 0300,1500 DAWSON Administration Meropenem 1 gm/ Device 50 mls @ 100 mls/hr 10/18/19 08:00 10/18/19 09:37 IVPB 50 mls 0800,1600,2359 DAWSON Administration Levetiracetam 500 mg 10/18/19 09:00 10/18/19 09:41 Keppra PO 500 mg BID DAWSON Administration Levothyroxine Sodium 50 mcg 10/18/19 06:00 10/18/19 05:51 Synthroid PO 50 mcg 0600 DAWSON Administration Methylphenidate HCl 10 mg 10/17/19 21:00 10/18/19 09:38 Ritalin PO 10 mg BID DAWSON Administration Metoprolol Tartrate 5 mg 10/17/19 18:00 10/17/19 17:45 Lopressor IVP 5 mg Q6H PRN Administration for Heart rate >140/min Ondansetron HCl 4 mg 10/17/19 17:05 10/18/19 03:32 Zofran IVP 4 mg Q6H PRN Administration Nausea/Vomiting Sodium Chloride 10 ml 10/18/19 09:00 10/18/19 09:40 Flush - Normal Saline IVF 10 ml Q12HR DAWSON Administration - Exam General Appearance: awake alert Eye: PERRL, anicteric sclera ENT: no oropharyngeal lesions, moist mucosa Neck: supple, no JVD Heart: no murmur, irregular Respiratory: no wheezes, rhonchi Gastrointestinal: soft, non-tender, non-distended, normal bowel sounds Extremities - other findings: edema in left LE+ Neurological: hemiplegia Psychiatric: A&O x 3 Hosp A/P (1) Atrial fibrillation with RVR Code(s): I48.91 - UNSPECIFIED ATRIAL FIBRILLATION Status: Acute (2) Sepsis Code(s): A41.9 - SEPSIS, UNSPECIFIED ORGANISM Status: Acute Qualifiers: Sepsis type: sepsis due to unspecified organism Sepsis acute organ dysfunction status: without acute organ dysfunction Qualified Code(s): A41.9 - Sepsis, unspecified organism (3) H/O: CVA (cerebrovascular accident) Code(s): Z86.73 - PRSNL HX OF TIA (TIA), AND CEREB INFRC W/O RESID DEFICITS Status: Chronic (4) Seizure disorder Code(s): G40.909 - EPILEPSY, UNSP, NOT INTRACTABLE, WITHOUT STATUS EPILEPTICUS Status: Acute (5) Dyslipidemia Code(s): E78.5 - HYPERLIPIDEMIA, UNSPECIFIED Status: Chronic (6) HTN (hypertension) Code(s): I10 - ESSENTIAL (PRIMARY) HYPERTENSION Status: Chronic Qualifiers: Hypertension type: essential hypertension Qualified Code(s): I10 - Essential (primary) hypertension (7) Pancreatic cancer metastasized to liver Code(s): C25.9 - MALIGNANT NEOPLASM OF PANCREAS, UNSPECIFIED; C78.7 - SECONDARY MALIG NEOPLASM OF LIVER AND INTRAHEPATIC BILE DUCT Status: Chronic - Plan afib is rate controlled, infact has converted to sinus rhythm cardiology consultation hemo/neurostable wbc count has gone up this am, he recieved 30ml/kg sepsis protocol fluid in ER will cautiously increase iv fluid, watch for overload on meropenem and vanc, keppra, asp, lipitor, eliquis, cardizem oral will dc cardizem drip. November tx to telemetry will update shortly over phone
[2019-10-18] MEDS: Sodium Chloride 0.9% 1,000 ML IV SCH ×2 (11:58→22:10)
--- NOTE | 2019-10-18 18:10 | CON ---
DATE OF CONSULTATION: 10/18/2019 REASON FOR CONSULTATION: Positive troponins. HISTORY OF PRESENT ILLNESS: Mr. Baker is a 59-year-old white gentleman, who comes to the hospital for altered mentation. He has been weak and fatigued for the last few days, on and off diarrhea, had a urinary tract infection and was on Macrobid for this. It is thought that he has had seizures. He was admitted for sepsis, likely from urinary tract infection. He is being ruled out for COVID-19 as well. Cardiology is being consulted for an episode of rapid afib on admission. He denies any chest pain, tightness, or pressure. PAST MEDICAL HISTORY: 1. Pancreatic cancer with prior Whipple procedure at [facility]. Scheduled for radiation therapy for palliative radiation. 2. Paroxysmal atrial fibrillation. 3. Hypothyroidism. 4. Hypertension. 5. History of vitale with skin graft in the right upper extremity, contraction, claw hands. 6. History of CVA with left hemiplegia. 7. Seizure disorder. 8. Depression. 9. Type 2 diabetes. 10. Pancreatic insufficiency. OUTPATIENT MEDICATIONS: 1. Multivitamin. 2. Tylenol. 3. Vitamin D3. 4. Aspirin 81. 5. Atorvastatin 40. 6. Cardizem. 7. Finasteride. 8. Keppra 500 mg twice a day. 9. Levothyroxine 50 mcg a day. 10. Lisinopril 20 a day. 11. Melatonin. 12. Methylphenidate. 13. Creon. 14. Protonix. 15. Sertraline. 16. Januvia. 17. Flomax. 18. Trazodone. ALLERGIES: AMLODIPINE AND AMIODARONE. SOCIAL HISTORY: No alcohol, tobacco, or drugs. FAMILY HISTORY: Mother with coronary artery disease. Father at age 52 from alcohol-related complications. REVIEW OF SYSTEMS: Unobtainable as the patient is somewhat confused on my evaluation. PHYSICAL EXAMINATION: VITAL SIGNS: Temperature up to 100.3 last night, currently at 98.6. Pulse 91, respiratory rate 20, saturating 99% on room air. GENERAL: Awake, alert, oriented to person, difficulty with time and place. HEENT: Normocephalic and atraumatic. NECK: Supple. LUNGS: Bilateral rhonchi. CARDIOVASCULAR: S1 and S2. EXTREMITIES: 1+ edema. SKIN: Warm and dry. LABORATORY DATA: Laboratory work was reviewed. White count went from 8.8 up to 37, hemoglobin of 9 up to 11, hematocrit of 34, and platelet count of 268. Coags were reviewed. ABG was reviewed. Chemistries were reviewed. Lactic acid was 7.1. BNP was 620. Troponin was negative. Telemetry was reviewed, atrial fibrillation with RVR, currently back in sinus. ASSESSMENT: 1. Paroxysmal atrial fibrillation 2. Metastatic pancreatic cancer. 3. Seizure disorder. PLAN: 1. Back in sinus rhythm. 2. Continue current medications. We would continue p.o. Cardizem per home dose. Continue Eliquis for stroke prophylaxis for history of paroxysmal atrial fibrillation. 3. Antibiotics per Primary Team for urinary tract infection. 4. COVID-19 still pending for results. Thank you for letting us to participate in the care of your patient. We will follow. Job ID: [id number] MTDD
[2019-10-18] MEDS: Vancomycin HCl 1.25 GM in Sodium Chloride 0.9% 250 ML 250 ML IVPB SCH (18:43)
[2019-10-19 04:27] LABS: Vancomycin, Trough 19.3 ug/mL
[2019-10-19] MEDS: Levothyroxine Sodium 50 MCG TAB PO SCH (05:17)
[2019-10-19] MEDS: Vancomycin HCl 1.25 GM in Sodium Chloride 0.9% 250 ML 250 ML IVPB SCH ×2 (05:17→16:24)
[2019-10-19] MEDS: MEROPENEM 1 GM/50 ML 1 GM in Premix Bag 1 BAG IVPB SCH ×3 (07:40→23:59)
[2019-10-19] MEDS: Sodium Chloride 0.9% 1,000 ML IV SCH ×2 (07:40→16:26)
[2019-10-19] MEDS: Pancrelipase DR 12000 1 CAP PO SCH ×3 (07:40→16:23)
[2019-10-19] MEDS: Apixaban 5 MG TAB PO SCH ×2 (07:41→20:58)
[2019-10-19] MEDS: Aspirin 81 mg Enteric Coated Tablet PO SCH (07:41)
[2019-10-19] MEDS: levETIRAcetam 500 MG TAB PO SCH ×2 (07:42→20:58)
[2019-10-19 09:02] LABS: #Lymphocytes 0.6 thou/uL (1.20-3.40); #Monocytes 1.2 thou/uL (0.11-0.59); #Neutrophils 25.4 thou/uL (1.40-6.50); %Basophils 0.1 % (0.0-1.0); %Eosinophils 0.1 % (0.0-10.0); %Lymphocytes 2.2 % (21.0-51.0); %Monocytes 4.4 % (0.0-10.0); %Neutrophils 93.2 % (42.0-75.0); Hemoglobin 10.2 g/dL (14.0-18.0); Mean Corpuscular HGB CONC 34.5 g/dL (32.0-36.0); Mean Corpuscular Hemoglobin 30.3 pg (27.0-31.0); Mean Corpuscular Volume 87.8 fL (78.0-98.0); Mean Platelet Volume 8.2 fL (7.4-10.4); Platelet Count 227 thou/uL (130-400); RBC Distribution Width 12.5 % (11.5-14.5); Red Blood Cell (RBC) Count 3.37 mill/uL (4.70-6.10); White Blood Cell (WBC) Count 27.3 thou/uL (4.8-10.8)
[2019-10-19 09:16] LABS: Anion Gap 14 mmol/L (10-20); BUN (Urea Nitrogen) 21 mg/dL (8.4-25.7); Calc. Creatinine Clearance 71 mL/min (70-130); Carbon Dioxide 21 mmol/L (23-31); Chloride 103 mmol/L (98-107); Estimated GFR-MDRD 75; Glucose 148 mg/dL (80-115); Potassium 3.7 mmol/L (3.5-5.1); Sodium 134 mmol/L (136-145)
--- NOTE | 2019-10-19 12:21 | PDOC.HOSPP ---
- Subjective Encounter Date: 10/19/19 Encounter Time: 08:45 Subjective: awake, responds well to verbal stimuli no further seizures, no sob - Objective Vital Signs & Weight: Vital Signs (12 hours) Temp Pulse Pulse Ox 10/19/19 08:00 98 10/19/19 07:45 99.1 F 10/19/19 07:41 114 H 10/19/19 05:00 98.8 F 10/19/19 03:08 99 10/19/19 01:00 99.1 F Weight Weight 143 lb 4.8 oz Most Recent Monitor Data Heart Rate from ECG 100 NIBP 159/95 NIBP BP-Mean 116 Respiration from ECG 30 SpO2 97 I&O: 10/18/19 10/19/19 10/20/19 06:59 06:59 06:59 Intake Total 480 Output Total 900 Balance -420 Result Diagrams: 10/19/19 08:47 10/19/19 08:47 Hospitalist ROS - Medication Medications: Active Medications Generic Name Dose Route Start Last Admin Trade Name Freq PRN Reason Stop Dose Admin Lipase/Protease/Amylase 1 cap 10/18/19 08:00 10/19/19 11:[address] [place] [address] [id number] PO 1 cap TID-WM DAWSON Administration Apixaban 5 mg 10/17/19 21:00 10/19/19 07:41 Eliquis PO 5 mg BID DAWSON Administration Aspirin 81 mg 10/18/19 09:00 10/19/19 07:41 Ecotrin PO 81 mg DAILY DAWSON Administration Atorvastatin Calcium 40 mg 10/17/19 21:00 10/18/19 21:41 Lipitor PO 40 mg HS DAWSON Administration Diltiazem HCl 120 mg 10/18/19 21:00 10/19/19 07:41 Cardizem Cd PO 120 mg BID DAWSON Administration Meropenem 1 gm/ Device 50 mls @ 100 mls/hr 10/18/19 08:00 10/19/19 07:40 IVPB 50 mls 0800,1600,2359 DAWSON Administration Sodium Chloride 1,000 mls @ 100 mls/hr 10/18/19 11:45 10/19/19 07:40 Normal Saline 0.9% IV 1,000 mls .Q10H DAWSON Administration Vancomycin HCl 1.25 gm/ Sodium 250 mls @ 166.667 mls/hr 10/18/19 17:00 05:17 Chloride IVPB 250 mls 0500,1700 DAWSON Administration Levetiracetam 500 mg 10/18/19 09:00 10/19/19 07:42 Keppra PO 500 mg BID DAWSON Administration Levothyroxine Sodium 50 mcg 10/18/19 06:00 10/19/19 05:17 Synthroid PO 50 mcg 0600 DAWSON Administration Methylphenidate HCl 10 mg 10/17/19 21:00 10/19/19 08:12 Ritalin PO 10 mg BID DAWSON Administration Metoprolol Tartrate 5 mg 10/17/19 18:00 10/17/19 17:45 Lopressor IVP 5 mg Q6H PRN Administration for Heart rate >140/min Ondansetron HCl 4 mg 10/17/19 17:05 10/18/19 03:32 Zofran IVP 4 mg Q6H PRN Administration Nausea/Vomiting Pantoprazole Sodium 40 mg 10/19/19 09:00 10/19/19 07:42 Protonix PO 40 mg DAILY DAWSON Administration Sodium Chloride 10 ml 10/18/19 09:00 10/19/19 07:42 Flush - Normal Saline IVF 10 ml Q12HR DAWSON Administration - Exam General Appearance: awake alert, ill appearing Eye: PERRL, anicteric sclera ENT: no oropharyngeal lesions, moist mucosa Neck: supple, no JVD Heart: RRR, no murmur Respiratory: no wheezes, no rales, rhonchi Gastrointestinal: soft, non-tender, non-distended, normal bowel sounds Extremities: no cyanosis, no edema Neurological: hemiplegia Hosp A/P (1) Atrial fibrillation with RVR Code(s): I48.91 - UNSPECIFIED ATRIAL FIBRILLATION Status: Resolved (2) Sepsis Code(s): A41.9 - SEPSIS, UNSPECIFIED ORGANISM Status: Acute Qualifiers: Sepsis type: sepsis due to unspecified organism Sepsis acute organ dysfunction status: without acute organ dysfunction Qualified Code(s): A41.9 - Sepsis, unspecified organism (3) H/O: CVA (cerebrovascular accident) Code(s): Z86.73 - PRSNL HX OF TIA (TIA), AND CEREB INFRC W/O RESID DEFICITS Status: Chronic (4) Seizure disorder Code(s): G40.909 - EPILEPSY, UNSP, NOT INTRACTABLE, WITHOUT STATUS EPILEPTICUS Status: Acute (5) Dyslipidemia Code(s): E78.5 - HYPERLIPIDEMIA, UNSPECIFIED Status: Chronic (6) HTN (hypertension) Code(s): I10 - ESSENTIAL (PRIMARY) HYPERTENSION Status: Chronic Qualifiers: Hypertension type: essential hypertension Qualified Code(s): I10 - Essential (primary) hypertension (7) Pancreatic cancer metastasized to liver Code(s): C25.9 - MALIGNANT NEOPLASM OF PANCREAS, UNSPECIFIED; C78.7 - SECONDARY MALIG NEOPLASM OF LIVER AND INTRAHEPATIC BILE DUCT Status: Chronic (8) UTI (urinary tract infection) Status: Acute Qualifiers: Urinary tract infection type: catheter-associated UTI - Plan afib has converted to sinus rhythm hemo/neurostable wbc count is slowly trending down. on iv fluid, watch for overload on meropenem and vanc, keppra, asp, lipitor, eliquis, cardizem oral May tx to telemetry MRI brain with contrast to check for mets/cva
--- NOTE | 2019-10-19 16:32 | PDOC.CPN ---
- Subjective Date: 10/19/19 Time: 16:30 Interval history: No new issues. - Review of Systems ROS unobtainable: due to mental status - Objective Allergies/Adverse Reactions: Allergies Allergy/AdvReac Type Severity Reaction Status Date / Time amiodarone Allergy Verified 05/29/19 13:17 Visit Medications: Current Medications Acetaminophen (Tylenol) 650 mg PO Q4H PRN PRN Reason: Headache/Fever/Mild Pain (1-3) Acetaminophen (Tylenol) 650 mg CA Q4H PRN PRN Reason: Headache/Fever/Mild Pain (1-3) Lipase/Protease/Amylase ([place] [id number]) 1 cap PO TID-WM [facility] Last Admin: 10/19/19 16:23 Dose: 1 cap Apixaban (Eliquis) 5 mg PO BID [facility] Last Admin: 10/19/19 07:41 Dose: 5 mg Aspirin (Ecotrin) 81 mg PO DAILY [facility] Last Admin: 10/19/19 07:41 Dose: 81 mg Atorvastatin Calcium (Lipitor) 40 mg PO HS [facility] Last Admin: 10/18/19 21:41 Dose: 40 mg Bisacodyl (Dulcolax) 10 mg CA DAILYPRN PRN PRN Reason: Constipation Diltiazem HCl (Cardizem Cd) 120 mg PO BID [facility] Last Admin: 10/19/19 07:41 Dose: 120 mg Meropenem 1 gm/ Device 50 mls @ 100 mls/hr IVPB 0800,1600,2359 [facility] Last Admin: 10/19/19 16:23 Dose: 50 mls Sodium Chloride (Normal Saline 0.9%) 1,000 mls @ 100 mls/hr IV .Q10H [facility] Last Admin: 10/19/19 16:26 Dose: 1,000 mls Vancomycin HCl 1.25 gm/ Sodium (Chloride) 250 mls @ 166.667 mls/hr IVPB 0500, 1700 [facility] Last Admin: 10/19/19 16:24 Dose: 250 mls Levetiracetam (Keppra) 500 mg PO BID [facility] Last Admin: 10/19/19 07:42 Dose: 500 mg Levothyroxine Sodium (Synthroid) 50 mcg PO 0600 [facility] Last Admin: 10/19/19 05:17 Dose: 50 mcg Lorazepam (Ativan) 1 mg SLOW IVP Q4H PRN PRN Reason: Anxiety/Agitation Methylphenidate HCl (Ritalin) 10 mg PO BID [facility] Last Admin: 10/19/19 08:12 Dose: 10 mg Metoprolol Tartrate (Lopressor) 5 mg IVP Q6H PRN PRN Reason: for Heart rate >140/min Last Admin: 10/17/19 17:45 Dose: 5 mg Miscellaneous Medication (Pharmacy To Dose) 1 each IVPB PRN PRN PRN Reason: Pharmacy to dose Ondansetron HCl (Zofran) 4 mg IVP Q6H PRN PRN Reason: Nausea/Vomiting Last Admin: 10/18/19 03:32 Dose: 4 mg Pantoprazole Sodium (Protonix) 40 mg PO DAILY [facility] Last Admin: 10/19/19 07:42 Dose: 40 mg Senna/Docusate Sodium (Senokot S) 2 tab PO BID PRN PRN Reason: Constipation Sertraline HCl (Zoloft) 25 mg PO DAILY PRN PRN Reason: Agitation Sodium Chloride (Flush - Normal Saline) 10 ml IVF Q12HR [facility] Last Admin: 10/19/19 07:42 Dose: 10 ml Sodium Chloride (Flush - Normal Saline) 10 ml IVF PRN PRN PRN Reason: Saline Flush Vital Signs & Weight: Vital Signs Temp Pulse Pulse Ox 10/19/19 13:00 98.0 F 10/19/19 08:00 98 10/19/19 07:45 99.1 F 10/19/19 07:41 114 H 10/19/19 05:00 98.8 F Admit Weight 143 lb 4.8 oz Weight 143 lb 4.8 oz - Physical Exam General: no apparent distress HEENT: normocephaly Neck: supple neck Cardiac: regular rate and rhythm Lungs: normal breath sounds Neuro: no lateralizing findings Abdomen: active bowel sounds Extremities: no edema Skin: clear Musculoskeletal: no pain - Labs Result Diagrams: 10/19/19 08:47 10/19/19 08:47 Troponin/CKMB Troponin I Less than 0.010 ng/mL (< 0.028) 10/17/19 13:47 - Telemetry Sinus rhythms and dysrhythmias: sinus rhythm - Assessment/Plan Assessment/Plan: 1, Paroxysmal afib, 2. Seizure disorder 3. Metastatic pancreatic cancer. PLAN: - Remains in sinus. - Continue Eliquis for stroke prophylaxis. - Continue home dose of diltiazem. - COVID-19 result pending.
[2019-10-19] MEDS: Atorvastatin Calcium 40 MG TAB PO SCH (20:58)
[2019-10-20] MEDS: Sodium Chloride 0.9% 1,000 ML IV SCH ×2 (02:25→11:31)
[2019-10-20] MEDS: Lorazepam 2 MG/ML VIAL SLOW IVP PRN (03:51)
[2019-10-20 05:11] LABS: Anion Gap 12 mmol/L (10-20); BUN (Urea Nitrogen) 19 mg/dL (8.4-25.7); Calc. Creatinine Clearance 86 mL/min (70-130); Calcium 7.4 mg/dL (7.8-10.44); Carbon Dioxide 24 mmol/L (23-31); Chloride 101 mmol/L (98-107); Estimated GFR-MDRD Greater than 90; Glucose 102 mg/dL (80-115); Potassium 3.2 mmol/L (3.5-5.1); Sodium 134 mmol/L (136-145)
[2019-10-20] MEDS: Levothyroxine Sodium 50 MCG TAB PO SCH (06:08)
[2019-10-20] MEDS: Vancomycin HCl 1.25 GM in Sodium Chloride 0.9% 250 ML 250 ML IVPB SCH ×3 (06:08→22:35)
[2019-10-20 06:26] LABS: Band 15 % (5-11); Hemoglobin 8.8 g/dL (14.0-18.0); Lymphocytes 6 % (21-51); MDiff Complete? YES; Mean Corpuscular HGB CONC 33.8 g/dL (32.0-36.0); Mean Corpuscular Hemoglobin 29.8 pg (27.0-31.0); Mean Corpuscular Volume 88.2 fL (78.0-98.0); Mean Platelet Volume 8.9 fL (7.4-10.4); Monocytes 2 % (0-10); Neutrophil 77 % (42-75); Platelet Count 182 thou/uL (130-400); RBC Distribution Width 12.4 % (11.5-14.5); Red Blood Cell (RBC) Count 2.95 mill/uL (4.70-6.10); White Blood Cell (WBC) Count 17.5 thou/uL (4.8-10.8)
[2019-10-20] MEDS: Aspirin 81 mg Enteric Coated Tablet PO SCH (08:00)
[2019-10-20] MEDS: Pancrelipase DR 12000 1 CAP PO SCH ×3 (08:00→16:35)
[2019-10-20] MEDS: levETIRAcetam 500 MG TAB PO SCH ×2 (08:00→22:19)
[2019-10-20] MEDS: Apixaban 5 MG TAB PO SCH ×2 (08:00→22:19)
[2019-10-20] MEDS: MEROPENEM 1 GM/50 ML 1 GM in Premix Bag 1 BAG IVPB SCH ×2 (08:00→16:35)
[2019-10-20] MEDS ORDERED: Potassium Chloride 20 MEQ TAB PO SCH (11:00)
--- NOTE | 2019-10-20 12:01 | PDOC.HOSPP ---
- Subjective Encounter Date: 10/20/19 Encounter Time: 09:05 Subjective: awake, responds well to verbal questions is eating well says he was awake till early this morning no sob or chest pain or palp moves right extremities well - Objective Vital Signs & Weight: Vital Signs (12 hours) Temp 10/20/19 04:05 98.2 F Weight Admit Weight 143 lb 4.8 oz Weight 143 lb 4.8 oz Most Recent Monitor Data Heart Rate from ECG 104 NIBP 156/96 NIBP BP-Mean 116 Respiration from ECG 20 SpO2 94 I&O: 10/19/19 10/20/19 10/21/19 06:59 06:59 06:59 Intake Total 480 2740 Output Total 900 1175 Balance -420 1565 Result Diagrams: 10/20/19 04:00 10/20/19 04:00 Hospitalist ROS - Medication Medications: Active Medications Generic Name Dose Route Start Last Admin Trade Name Freq PRN Reason Stop Dose Admin Lipase/Protease/Amylase 1 cap 10/18/19 08:00 10/20/19 11:[address] [place] [id number] PO 1 cap TID-WM DAWSON Administration Apixaban 5 mg 10/17/19 21:00 10/20/19 08:00 Eliquis PO 5 mg BID DAWSON Administration Aspirin 81 mg 10/18/19 09:00 10/20/19 08:00 Ecotrin PO 81 mg DAILY DAWSON Administration Atorvastatin Calcium 40 mg 10/17/19 21:00 10/19/19 20:58 Lipitor PO 40 mg HS DAWSON Administration Diltiazem HCl 120 mg 10/18/19 21:00 10/20/19 08:00 Cardizem Cd PO 120 mg BID DAWSON Administration Meropenem 1 gm/ Device 50 mls @ 100 mls/hr 10/18/19 08:00 10/20/19 08:00 IVPB 50 mls 0800,1600,2359 DAWSON Administration Sodium Chloride 1,000 mls @ 100 mls/hr 10/18/19 11:45 10/20/19 11:31 Normal Saline 0.9% IV 1,000 mls .Q10H DAWSON Administration Vancomycin HCl 1.25 gm/ Sodium 250 mls @ 166.667 mls/hr 10/18/19 17:00 06:08 Chloride IVPB 250 mls 0500,1700 DAWSON Administration Levetiracetam 500 mg 10/18/19 09:00 10/20/19 08:00 Keppra PO 500 mg BID DAWSON Administration Levothyroxine Sodium 50 mcg 10/18/19 06:00 10/20/19 06:08 Synthroid PO 50 mcg 0600 DAWSON Administration Lorazepam 1 mg 10/17/19 17:59 10/20/19 03:51 Ativan SLOW IVP 1 mg Q4H PRN Administration Anxiety/Agitation Methylphenidate HCl 10 mg 10/17/19 21:00 10/20/19 10:55 Ritalin PO Not Given BID DAWSON Metoprolol Tartrate 5 mg 10/17/19 18:00 10/17/19 17:45 Lopressor IVP 5 mg Q6H PRN Administration for Heart rate >140/min Ondansetron HCl 4 mg 10/17/19 17:05 10/18/19 03:32 Zofran IVP 4 mg Q6H PRN Administration Nausea/Vomiting Pantoprazole Sodium 40 mg 10/19/19 09:00 10/20/19 08:00 Protonix PO 40 mg DAILY DAWSON Administration Potassium Chloride 40 meq 10/20/19 11:00 10/20/19 11:30 K-Dur PO 10/20/19 13:00 40 meq NOW DAWSON Administration Sodium Chloride 10 ml 10/18/19 09:00 10/20/19 08:01 Flush - Normal Saline IVF 10 ml Q12HR DAWSON Administration - Exam General Appearance: awake alert Eye: PERRL, anicteric sclera ENT: no oropharyngeal lesions, moist mucosa Neck: supple, no JVD Heart: RRR, no murmur Respiratory: no wheezes, no rales Gastrointestinal: soft, non-tender, non-distended, normal bowel sounds Extremities: no cyanosis, no edema Neurological: hemiplegia Hosp A/P (1) Sepsis Code(s): A41.9 - SEPSIS, UNSPECIFIED ORGANISM Status: Acute Qualifiers: Sepsis type: sepsis due to unspecified organism Sepsis acute organ dysfunction status: without acute organ dysfunction Qualified Code(s): A41.9 - Sepsis, unspecified organism (2) UTI (urinary tract infection) Status: Acute Qualifiers: Urinary tract infection type: catheter-associated UTI (3) Atrial fibrillation with RVR Code(s): I48.91 - UNSPECIFIED ATRIAL FIBRILLATION Status: Resolved (4) H/O: CVA (cerebrovascular accident) Code(s): Z86.73 - PRSNL HX OF TIA (TIA), AND CEREB INFRC W/O RESID DEFICITS Status: Chronic (5) Seizure disorder Code(s): G40.909 - EPILEPSY, UNSP, NOT INTRACTABLE, WITHOUT STATUS EPILEPTICUS Status: Chronic (6) Dyslipidemia Code(s): E78.5 - HYPERLIPIDEMIA, UNSPECIFIED Status: Chronic (7) HTN (hypertension) Code(s): I10 - ESSENTIAL (PRIMARY) HYPERTENSION Status: Chronic Qualifiers: Hypertension type: essential hypertension Qualified Code(s): I10 - Essential (primary) hypertension (8) Pancreatic cancer metastasized to liver Code(s): C25.9 - MALIGNANT NEOPLASM OF PANCREAS, UNSPECIFIED; C78.7 - SECONDARY MALIG NEOPLASM OF LIVER AND INTRAHEPATIC BILE DUCT Status: Chronic - Plan afib in sinus rhythm hemo/neurostable wbc count is slowly trending down. on iv fluid, watch for overload on meropenem and vanc, keppra, asp, lipitor, eliquis, cardizem oral May tx to medical floor. MRI brain with contrast to check for mets/cva to be done today. d/w pathologist regarding delay in covid 19 results, his specimen quantity is very small and couldn't be done locally, hence its been sent to ref lab in [facility] which will take 3-5 days to result from today. I have given complete updates to his today, she is aware of all the tests done and the reason for delay in covid results have been explained to her as well.
[2019-10-20 17:32] LABS: Vancomycin, Trough 18.8 ug/mL
--- NOTE | 2019-10-20 19:40 | CON ---
DATE OF CONSULTATION: 10/20/2019 REASON FOR CONSULTATION: Possible sepsis. HISTORY OF PRESENT ILLNESS: A 59-year-old patient. He was last admitted to this hospital in May last year. At that time, he presented with a history of pancreatic cancer, metastatic, stage IV with mostly liver involvement; also with an acute CVA, right cerebral artery distribution; paroxysmal atrial fibrillation; and recurrent seizure activity. At this time, he presented because of reportedly he was exposed to somebody who had COVID in his family and he felt a little bit weak and so they brought him to the emergency room. On arrival, his blood pressure is 159/91, pulse 100, temperature 99, O2 saturation 92%, and he had a temperature elevation of 103.9 and was admitted. He did not have any evidence of distress on admission. He had residual left-sided weakness. Other findings on admission included a white cell count of 8.8, hemoglobin 9.1, platelets 139 with 86% neutrophils. Sodium is 136, creatinine 1.15, bilirubin 0.3, AST 45, ALT 45, alkaline phosphatase 272, and albumin 3.1. Procalcitonin was 0.05 on admission. Urinalysis with only 4 to 6 wbc's. He had a COVID-19 PCR not detected, this was submitted on admission. Currently, Mr. Baker is awake. During the interview, he had a one short-lived focal seizure left-sided with tonic clonic activity, this lasted just a few seconds. He did never loss his consciousness. He denied any headaches. No respiratory symptoms. No cough. No abdominal pain. No back pain. 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 ALLERGIES: NORVASC, AMIODARONE. SOCIAL HISTORY: Never smoker. FAMILY HISTORY: Coronary artery disease and alcoholism. CURRENT MEDICATIONS: 1. Creon. 2. Eliquis. 3. Ecotrin. 4. Lipitor. 5. Dulcolax. 6. Cardizem. 7. Keppra. 8. Synthroid. 9. Ativan. 10. Meropenem. 11. Ritalin. 12. Lopressor. 13. Zofran. 14. Protonix. 15. Zoloft. 16. Vancomycin. PHYSICAL EXAMINATION: VITAL SIGNS: The patient had a temperature of 100.3 on arrival, he has been afebrile since; blood pressure 150/92; pulse 74; respirations 24; O2 saturation 94. SKIN: Duran catheter which had been present before admission according to his own account. Has a peripheral IV access. HEENT: His ocular movements are conjugate. No lymphadenopathy. Oral cavity with numerous burns paiute teeth in place. NECK: Supple without jugular venous distention. LUNGS: Symmetric air entry. No crackles or wheezing. HEART: S1 and S2, regular rate without murmurs. ABDOMEN: Soft. Not distended or tender. No ascites. No bladder distention. : No genital abnormalities. NEUROLOGIC: Left hemiparesis. Some hypertonicity on the left side. He is awake. He has a little bit of dysarthria. He is able to understand questions and has proper replies, although they are sort of in a staccato fashion because of his stroke, so he does have some dysphasia. LABORATORY DATA: His white cell count was at 8.8, went up to 37.8, and now is at 17.5; hemoglobin was 11.3 and now 8.8; platelets 268. His bands were 21, now they are down to 15. Sodium is 134, creatinine 0.83. BNP was 620. Microbiology data: We have urine culture with E coli and another gram-negative anselmo. The E coli and the gram-negative anselmo greater than 100,000, susceptibilities of the E coli showed the resistance only to ampicillin and ampicillin sulbactam. 1/2 sets of blood cultures with the gram-positive anselmo, the identification is yet pending. IMAGING DATA: Chest, CT angio which demonstrated no evidence of pulmonary embolism. Multiple enhancing masses of the liver, suspected biliary gas left lower liver, moderately distended loops of bowel in the upper abdomen. Brain CT with no acute posttraumatic intracranial sequela. The patient had a chest x-ray on admission, which did not show any acute cardiopulmonary process. ASSESSMENT: 1. Metastatic pancreatic cancer. 2. Acute cerebrovascular accident in distribution of the right MARIAM with left hemiparesis. 3. Seizure activity. 4. Exposure to COVID but no evidence of COVID infection by PCR with a low pretest likelihood. 5. Neutrophilia, which has developed over the past few days after admission. One set of a positive blood cultures likely contamination of the sample, but we will wait for the final results of the organism identification. 6. Biliary tree gas noted, most likely due to the previous Whipple procedure with choledochojejunostomy. DISCUSSION: The differential diagnosis includes transient ascending cholangitis with infection of the biliary tree in view of the absence of a normal sphincter function versus invasive UTI versus noninfectious cause of neutrophilia, for example, status epilepticus. The patient has seizures quite often and that may be sometimes associated with neutrophilia. The nature of the organism isolated from one set of blood cultures is more likely to represent contamination of the sample, but we will wait for the final identification. The urinary tract source is not ruled out, but less likely since the patient has a very little pyuria. From a practical standpoint, I would continue meropenem, discontinue vancomycin, await for the final identification of the organism, and then decide on further antimicrobial therapy treatment as needed. Job ID: [id number] [facility] HOSPITALChavez
[2019-10-20] MEDS: Atorvastatin Calcium 40 MG TAB PO SCH (22:19)
[2019-10-21] MEDS: MEROPENEM 1 GM/50 ML 1 GM in Premix Bag 1 BAG IVPB SCH ×2 (01:05→09:22)
[2019-10-21 05:20] LABS: #Lymphocytes 0.9 thou/uL (1.20-3.40); #Monocytes 0.7 thou/uL (0.11-0.59); #Neutrophils 9.3 thou/uL (1.40-6.50); %Basophils 0.3 % (0.0-1.0); %Eosinophils 0.1 % (0.0-10.0); %Lymphocytes 8.2 % (21.0-51.0); %Monocytes 6.1 % (0.0-10.0); %Neutrophils 85.3 % (42.0-75.0); Hemoglobin 8.8 g/dL (14.0-18.0); Mean Corpuscular HGB CONC 34.3 g/dL (32.0-36.0); Mean Corpuscular Hemoglobin 29.8 pg (27.0-31.0); Mean Corpuscular Volume 86.8 fL (78.0-98.0); Mean Platelet Volume 8.4 fL (7.4-10.4); Platelet Count 181 thou/uL (130-400); RBC Distribution Width 12.3 % (11.5-14.5); Red Blood Cell (RBC) Count 2.96 mill/uL (4.70-6.10); White Blood Cell (WBC) Count 10.9 thou/uL (4.8-10.8)
[2019-10-21 05:43] LABS: Anion Gap 11 mmol/L (10-20); BUN (Urea Nitrogen) 13 mg/dL (8.4-25.7); Calc. Creatinine Clearance 85 mL/min (70-130); Calcium 7.5 mg/dL (7.8-10.44); Carbon Dioxide 22 mmol/L (23-31); Chloride 106 mmol/L (98-107); Estimated GFR-MDRD Greater than 90; Glucose 83 mg/dL (80-115); Potassium 3.3 mmol/L (3.5-5.1); Sodium 136 mmol/L (136-145)
[2019-10-21] MEDS: Levothyroxine Sodium 50 MCG TAB PO SCH (05:44)
[2019-10-21] MEDS: Sodium Chloride 0.9% 1,000 ML IV SCH (05:44)
[2019-10-21] MEDS ORDERED: Lorazepam 2 MG/ML VIAL SLOW IVP SCH (09:00)
[2019-10-21] MEDS: Potassium Chloride 20 MEQ TAB PO SCH ×2 (09:30→17:34)
[2019-10-21] MEDS: Aspirin 81 mg Enteric Coated Tablet PO SCH (09:30)
[2019-10-21] MEDS: Pancrelipase DR 12000 1 CAP PO SCH ×3 (09:31→17:35)
[2019-10-21] MEDS: levETIRAcetam 500 MG TAB PO SCH ×2 (09:31→21:19)
[2019-10-21] MEDS: Apixaban 5 MG TAB PO SCH ×2 (09:31→21:03)
[2019-10-21] MEDS ORDERED: Valproate Sodium 500 MG in Sodium Chloride 0.9% 100 ML IVPB SCH ×2 (11:29→21:00)
[2019-10-21] MEDS: Vancomycin HCl 1.25 GM in Sodium Chloride 0.9% 250 ML 250 ML IVPB SCH (11:30)
--- NOTE | 2019-10-21 11:34 | PDOC.HOSPP ---
- Subjective Encounter Date: 10/21/19 Encounter Time: 09:15 Subjective: has jerking of left upper, lower and left face with eyelids, he is conscious and responds while this is going on has had these on admission but then it resolved on his home dose of keppra is moving right extremities well, no sob or palpitation or cough - Objective Vital Signs & Weight: Vital Signs (12 hours) Temp Pulse Resp BP BP Pulse Ox 10/21/19 09:31 69 10/21/19 07:13 97 10/21/19 07:12 98.7 F 69 19 164/79 H 96 10/21/19 04:03 98.5 F 101 H 18 151/86 H 97 10/20/19 23:40 99.1 F 108 H 20 154/94 H 92 L Weight Admit Weight 143 lb 4.8 oz Weight 143 lb 4.8 oz Most Recent Monitor Data Heart Rate from ECG 67 NIBP 153/92 NIBP BP-Mean 112 Respiration from ECG 26 SpO2 94 I&O: 10/20/19 10/21/19 10/22/19 06:59 06:59 06:59 Intake Total 2740 1600 Output Total 1175 1200 Balance 1565 400 Result Diagrams: 10/21/19 04:57 10/21/19 04:57 Hospitalist ROS - Medication Medications: Active Medications Generic Name Dose Route Start Last Admin Trade Name Traceq PRN Reason Stop Dose Admin Lipase/Protease/Amylase 1 cap 10/18/19 08:00 10/21/19 09:31 Pat Leon 52945 PO 1 cap TID-WM DAWSON Administration Apixaban 5 mg 10/17/19 21:00 10/21/19 09:31 Eliquis PO 5 mg BID DAWSON Administration Aspirin 81 mg 10/18/19 09:00 10/21/19 09:30 Ecotrin PO 81 mg DAILY DAWSON Administration Atorvastatin Calcium 40 mg 10/17/19 21:00 10/20/19 22:19 Lipitor PO 40 mg HS DAWSON Administration Diltiazem HCl 120 mg 10/18/19 21:00 10/21/19 09:31 Cardizem Cd PO 120 mg BID DAWSON Administration Levetiracetam 500 mg 10/18/19 09:00 10/21/19 09:31 Keppra PO 500 mg BID DAWSON Administration Levothyroxine Sodium 50 mcg 10/18/19 06:00 10/21/19 05:44 Synthroid PO 50 mcg 0600 DAWSON Administration Lorazepam 1 mg 10/17/19 17:59 10/20/19 03:51 Ativan SLOW IVP 1 mg Q4H PRN Administration Anxiety/Agitation Methylphenidate HCl 10 mg 10/17/19 21:00 10/21/19 09:22 Ritalin PO 10 mg BID DAWSON Administration Metoprolol Tartrate 5 mg 10/17/19 18:00 10/17/19 17:45 Lopressor IVP 5 mg Q6H PRN Administration for Heart rate >140/min Ondansetron HCl 4 mg 10/17/19 17:05 10/18/19 03:32 Zofran IVP 4 mg Q6H PRN Administration Nausea/Vomiting Pantoprazole Sodium 40 mg 10/19/19 09:00 10/21/19 09:31 Protonix PO 40 mg DAILY DAWSON Administration Potassium Chloride 40 meq 10/21/19 08:00 10/21/19 09:30 K-Dur PO 10/22/19 08:01 40 meq BID-WM DAWSON Administration Sodium Chloride 10 ml 10/18/19 09:00 10/21/19 09:55 Flush - Normal Saline IVF Not Given Q12HR DAWSON - Exam General Appearance: awake alert Eye: PERRL, anicteric sclera ENT: no oropharyngeal lesions, dry oral mucosa Neck: supple, no JVD Heart: RRR, no murmur Respiratory: no wheezes, no rales Gastrointestinal: soft, non-tender, non-distended, normal bowel sounds Extremities: no cyanosis, no edema Neurological: hemiplegia Hosp A/P (1) Sepsis Code(s): A41.9 - SEPSIS, UNSPECIFIED ORGANISM Status: Acute Qualifiers: Sepsis type: sepsis due to unspecified organism Sepsis acute organ dysfunction status: without acute organ dysfunction Qualified Code(s): A41.9 - Sepsis, unspecified organism (2) UTI (urinary tract infection) Status: Acute Qualifiers: Urinary tract infection type: catheter-associated UTI (3) Atrial fibrillation with RVR Code(s): I48.91 - UNSPECIFIED ATRIAL FIBRILLATION Status: Resolved (4) H/O: CVA (cerebrovascular accident) Code(s): Z86.73 - PRSNL HX OF TIA (TIA), AND CEREB INFRC W/O RESID DEFICITS Status: Chronic (5) Seizure disorder Code(s): G40.909 - EPILEPSY, UNSP, NOT INTRACTABLE, WITHOUT STATUS EPILEPTICUS Status: Chronic (6) Dyslipidemia Code(s): E78.5 - HYPERLIPIDEMIA, UNSPECIFIED Status: Chronic (7) HTN (hypertension) Code(s): I10 - ESSENTIAL (PRIMARY) HYPERTENSION Status: Chronic Qualifiers: Hypertension type: essential hypertension Qualified Code(s): I10 - Essential (primary) hypertension (8) Pancreatic cancer metastasized to liver Code(s): C25.9 - MALIGNANT NEOPLASM OF PANCREAS, UNSPECIFIED; C78.7 - SECONDARY MALIG NEOPLASM OF LIVER AND INTRAHEPATIC BILE DUCT Status: Chronic - Plan not sure if he is having focal seizures on paralysed left side with facial twitching as well, he is fully conscious and responds well verbally. EEG, neuro consultation, add valproic acid to current keppra, one dose ativan not sure if he has meningeal spread of pancreatic ca, await MRI brain which is pending from 3 days. afib in sinus rhythm hemostable wbc count is normal this am, electrolytes are stable. encourage po intake on levaquin oral, keppra, asp, lipitor, eliquis, cardizem oral MRI brain with contrast to check for mets/cva to be done today. covid 19 is -ve. PT/OT eval and ambulate when he is not jerking/?seizure
--- NOTE | 2019-10-21 14:35 | EKG ---
Test Reason : Blood Pressure : / mmHG Vent. Rate : 087 BPM Atrial Rate : 087 BPM P-R Int : 180 ms QRS Dur : 072 ms QT Int : 354 ms P-R-T Axes : 011 039 023 degrees QTc Int : 425 ms Normal sinus rhythm Normal ECG Reconfirmed by BINU KEATING ([id number]), graphic editor YOSEPH FRIEND ([id number]) on 10/21/2019 2:34:45 PM Referred By: Confirmed By:BINU Byrne
--- NOTE | 2019-10-21 14:38 | EKG ---
Test Reason : TACHY Blood Pressure : / mmHG Vent. Rate : 162 BPM Atrial Rate : 162 BPM P-R Int : 000 ms QRS Dur : 072 ms QT Int : 220 ms P-R-T Axes : 058 055 -66 degrees QTc Int : 361 ms Poor data quality, interpretation may be adversely affected Sinus tachycardia Abnormal ECG Reconfirmed by BINU KEATING ([id number]), commissioning editor YOSEPH FRIEND ([id number]) on 10/21/2019 2:38:01 PM Referred By: Confirmed By:BINU Byrne
--- NOTE | 2019-10-21 16:44 | MRI ---
MRI OF THE BRAIN WITH AND WITHOUT IV CONTRAST: 10/21/19 INDICATION: Concern for metastatic disease and CVA. COMPARISON: CT of the brain dated 10/17/19, 10/14/19 and 05/29/19 and MR of the brain dated 05/29/19. FINDINGS: 20 cc of Multihance administered. Motion artifact heavily limits image detail. There are areas of curvilinear acute restricted diffusion involving the cortex of the left frontal lo be on image 45 of series 5 consistent with acute cortically based infarct of the left frontal lobe. There is areas of abnormal restricted diffusion and increased T2 signal involving the medial aspect o f the right temporal lobe without associated abnormal enhancement. There are stable chronic infarcts involving the right frontal lobe as well as the anterior midline ri ght frontal lobe in the right MARIAM distribution. There are areas of laminar necrosis involving the ri ght frontal lobe. Mild linear enhancement is seen along the anteromedial right frontal lobe and likel y related to prior infarct. There is some laminar necrosis involving a region of remote infarct invol ving the anterolateral left frontal lobe on image 13 of series 11. No suspicious enhancement is seen to suggest the presence of intracranial metastatic disease. IMPRESSION: 1. Interval development of a new cortically based acute infarct involving the left frontal lobe. Suspicion for an acute infarct involving the medial right anterior temporal lobe. Findings may be re lated to embolic disease. 2. Remote chronic infarcts involving the anterior left frontal lobe, right frontal lobe in the right MARIAM distribution and the right frontal lobe in a distal right MCA distribution. There are areas of laminar necrosis involving chronic infarctions of the frontal lobes bilaterally. 3. No overt evidence to suggest presence of intracranial metastatic disease. POS: JULEE
[2019-10-21] MEDS: Atorvastatin Calcium 40 MG TAB PO SCH (21:03)
[2019-10-21 22:29] LABS: Syphilis Antibody Nonreactive (Nonreactive); Syphilis Antibody Index 0.03 S/CO (<1.00 Non-Reactive)
[2019-10-22] MEDS: Sodium Chloride 0.9% 1,000 ML IV SCH (02:48)
[2019-10-22 04:39] LABS: #Monocytes 0.8 thou/uL (0.11-0.59); #Neutrophils 8.4 thou/uL (1.40-6.50); %Basophils 0.2 % (0.0-1.0); %Eosinophils 0.4 % (0.0-10.0); %Lymphocytes 9.3 % (21.0-51.0); %Monocytes 7.8 % (0.0-10.0); %Neutrophils 82.3 % (42.0-75.0); Hemoglobin 9.5 g/dL (14.0-18.0); Mean Corpuscular Hemoglobin 29.2 pg (27.0-31.0); Mean Corpuscular Volume 88.3 fL (78.0-98.0); Mean Platelet Volume 8.8 fL (7.4-10.4); Platelet Count 176 thou/uL (130-400); RBC Distribution Width 12.5 % (11.5-14.5); Red Blood Cell (RBC) Count 3.26 mill/uL (4.70-6.10); White Blood Cell (WBC) Count 10.2 thou/uL (4.8-10.8)
[2019-10-22 05:01] LABS: Anion Gap 13 mmol/L (10-20); BUN (Urea Nitrogen) 11 mg/dL (8.4-25.7); Calc. Creatinine Clearance 85 mL/min (70-130); Calcium 7.8 mg/dL (7.8-10.44); Carbon Dioxide 24 mmol/L (23-31); Cardiac Risk 2.2 (Less than 4.5); Chloride 104 mmol/L (98-107); Cholesterol 100 mg/dl (< 200 Desired); Estimated GFR-MDRD Greater than 90; Glucose 66 mg/dL (80-115); HDL Cholesterol 46 mg/dL (>60 Neg Risk); LDL Cholesterol, Calculated 38 mg/dL; Potassium 3.8 mmol/L (3.5-5.1); Sodium 137 mmol/L (136-145); Triglycerides 81 mg/dL (Less than 150)
[2019-10-22] MEDS: Levothyroxine Sodium 50 MCG TAB PO SCH (05:53)
--- NOTE | 2019-10-22 07:50 | ULT ---
EXAM: Carotid Doppler PROVIDED CLINICAL HISTORY: Stroke COMPARISON: None FINDINGS: Grayscale and color Doppler sonography with spectral analysis was performed of the extracranial carot id system bilaterally. Minimal atherosclerotic plaque is seen involving each carotid bulb. There is no evidence for a hemodynamically significant internal carotid artery stenosis by peak systolic veloc ity or ratio criteria. Antegrade flow is seen in the vertebral arteries. IMPRESSION: No sonographic evidence for a hemodynamically significant internal carotid artery stenosis.
[2019-10-22] MEDS: Apixaban 5 MG TAB PO SCH ×3 (09:50→22:25)
[2019-10-22] MEDS: levETIRAcetam 500 MG TAB PO SCH (09:50)
[2019-10-22] MEDS: Potassium Chloride 20 MEQ TAB PO SCH ×2 (09:50→14:39)
[2019-10-22] MEDS: Aspirin 81 mg Enteric Coated Tablet PO SCH (09:51)
[2019-10-22] MEDS: Pancrelipase DR 12000 1 CAP PO SCH ×4 (09:51→16:33)
[2019-10-22] MEDS: Lorazepam 2 MG/ML VIAL SLOW IVP PRN (10:01)
--- NOTE | 2019-10-22 10:22 | CON ---
DATE OF CONSULTATION: 10/22/2019 CONSULTING PHYSICIAN: Hospitalist Service. IMPRESSION: 1. Acute left anterior cerebral artery stroke. 2. 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 3. Continuous focal seizure activity with right hemispheric onset. 4. Pancreatic cancer. PLAN: 1. Continue current anticoagulation and aspirin. 2. His Keppra dose has been increased along with the extra loading dose today. 3. I will consider adding fosphenytoin if the seizure is not under control with this change in regimen. HISTORY OF PRESENT ILLNESS: Mr. Baker is a 59-year-old gentleman with an unfortunate past history of pancreatic cancer. He suffered a prior stroke in the right MCA territory prior to admission. He has been on Eliquis and aspirin as well as Lipitor prior to admission. He came in with concerns of possible COVID exposure. He was running a fever and had a slight cough. His viral testing was negative. Unfortunately, he started having focal seizure activity. He had an MRI of the brain done last night, which showed a new area of ischemic injury in the left anterior cerebral artery territory. He has had increasing Keppra yesterday, but continues to have focal seizures on the left side. He has been afebrile since his admission date. PAST MEDICAL HISTORY: As listed above. ALLERGIES: AMIODARONE. SOCIAL HISTORY: No tobacco or alcohol. FAMILY HISTORY: Noncontributory. REVIEW OF SYSTEMS: Ten-system review of systems is otherwise negative. PHYSICAL EXAMINATION: VITAL SIGNS: Blood pressure 169/79, pulse 69, respirations 19, and temperature 98.7. HEENT: Pupils are equal. Conjunctivae clear. Oropharynx clear. Cranium, normocephalic and atraumatic. NECK: No lymphadenopathy. EXTREMITIES: No cyanosis or edema. NEUROLOGIC: He was alert and conversant. He attempted to follow commands. His face was asymmetric with pooling present on the left side. His tone was increased on the left with fairly constant focal seizure activity present. Sensation was intact to touch. Gait was not tested. LABORATORY STUDIES: EKG shows a sinus rhythm. IMAGING STUDIES: Reviewed. LABORATORY STUDIES: only remarkable for anemia with a hemoglobin of 8 and hematocrit of 25. SUMMARY: This is an unfortunate middle-aged man with recurrent stroke despite full anticoagulation and antiplatelet therapy related to underlying pancreatic cancer and a hypercoagulable state. His ongoing seizures remain a continuous problem. I will try increasing doses of medication today and see if we can bring it under control. Job ID: [id number] MTDD
[2019-10-22] MEDS: levETIRAcetam In NaCl (Iso-Os) 1,500 MG in Premix Bag 1 BAG IVPB SCH ×2 (11:47→23:09)
--- NOTE | 2019-10-22 11:50 | PDOC.HOSPP ---
- Subjective Encounter Date: 10/22/19 Encounter Time: 10:45 Subjective: is still having focal seizure like activity on left side, is oriented and responds to verbal stimuli - Objective Vital Signs & Weight: Vital Signs (12 hours) Temp Pulse Resp BP BP Pulse Ox 10/22/19 11:03 99.4 F 76 20 142/90 H 98 10/22/19 09:51 96 144/89 H 10/22/19 07:05 98.5 F 96 144/89 H 96 10/22/19 03:59 98.4 F 76 20 141/85 H 97 10/22/19 00:52 94 L 10/22/19 00:00 98.3 F 93 20 149/88 H 94 L Weight Admit Weight 143 lb 4.8 oz Weight 143 lb 4.8 oz Most Recent Monitor Data Heart Rate from ECG 67 NIBP 153/92 NIBP BP-Mean 112 Respiration from ECG 26 SpO2 94 I&O: 10/21/19 10/22/19 10/23/19 06:59 06:59 06:59 Intake Total 1600 1948 Output Total 1200 1950 Balance 400 -2 Result Diagrams: 10/22/19 04:17 10/22/19 04:17 Additional Labs: Accuchecks 10/22/19 10/22/19 06:43 05:48 POC Glucose 83 61 L Hospitalist ROS - Medication Medications: Active Medications Generic Name Dose Route Start Last Admin Trade Name Freq PRN Reason Stop Dose Admin Lipase/Protease/Amylase 1 cap 10/18/19 08:00 10/22/19 09:51 Creon 54475 PO 1 cap TID-WM DAWSON Administration Apixaban 5 mg 10/17/19 21:00 10/22/19 09:50 Eliquis PO 5 mg BID DAWSON Administration Aspirin 81 mg 10/18/19 09:00 10/22/19 09:51 Ecotrin PO 81 mg DAILY DAWSON Administration Atorvastatin Calcium 40 mg 10/17/19 21:00 10/21/19 21:03 Lipitor PO 40 mg HS DAWSON Administration Diltiazem HCl 120 mg 10/18/19 21:00 10/22/19 09:51 Cardizem Cd PO 120 mg BID DAWSON Administration Levetiracetam 1,500 mg/ Device 100 mls @ 200 mls/hr 10/22/19 11:00 10/22/19 11:47 IVPB 100 mls 1100,2300 DAWSON Administration Levofloxacin 500 mg 10/22/19 06:00 10/22/19 05:53 Levaquin PO 500 mg 0600 DAWSON Administration Levothyroxine Sodium 50 mcg 10/18/19 06:00 10/22/19 05:53 Synthroid PO 50 mcg 0600 DAWSON Administration Lorazepam 1 mg 10/17/19 17:59 10/22/19 10:01 Ativan SLOW IVP 1 mg Q4H PRN Administration Anxiety/Agitation Methylphenidate HCl 5 mg 10/22/19 09:00 10/22/19 09:51 Ritalin PO 5 mg DAILY DAWSON Administration Metoprolol Tartrate 5 mg 10/17/19 18:00 10/17/19 17:45 Lopressor IVP 5 mg Q6H PRN Administration for Heart rate >140/min Ondansetron HCl 4 mg 10/17/19 17:05 10/18/19 03:32 Zofran IVP 4 mg Q6H PRN Administration Nausea/Vomiting Pantoprazole Sodium 40 mg 10/19/19 09:00 10/22/19 09:51 Protonix PO 40 mg DAILY DAWSON Administration Sodium Chloride 10 ml 10/18/19 09:00 10/22/19 09:52 Flush - Normal Saline IVF 10 ml Q12HR DAWSON Administration - Exam General Appearance: awake alert Eye: PERRL, anicteric sclera ENT: no oropharyngeal lesions, moist mucosa Neck: supple, no JVD Heart: RRR, no murmur Respiratory: no wheezes, no rales Gastrointestinal: soft, non-tender, non-distended, normal bowel sounds Extremities: no cyanosis, no edema Neurological: hemiplegia Psychiatric: A&O x 3 Hosp A/P (1) Sepsis Code(s): A41.9 - SEPSIS, UNSPECIFIED ORGANISM Status: Resolved Qualifiers: Sepsis type: sepsis due to unspecified organism Sepsis acute organ dysfunction status: without acute organ dysfunction Qualified Code(s): A41.9 - Sepsis, unspecified organism (2) UTI (urinary tract infection) Status: Acute Qualifiers: Urinary tract infection type: catheter-associated UTI (3) Atrial fibrillation with RVR Code(s): I48.91 - UNSPECIFIED ATRIAL FIBRILLATION Status: Resolved (4) H/O: CVA (cerebrovascular accident) Code(s): Z86.73 - PRSNL HX OF TIA (TIA), AND CEREB INFRC W/O RESID DEFICITS Status: Chronic (5) Seizure disorder Code(s): G40.909 - EPILEPSY, UNSP, NOT INTRACTABLE, WITHOUT STATUS EPILEPTICUS Status: Chronic (6) Dyslipidemia Code(s): E78.5 - HYPERLIPIDEMIA, UNSPECIFIED Status: Chronic (7) HTN (hypertension) Code(s): I10 - ESSENTIAL (PRIMARY) HYPERTENSION Status: Chronic Qualifiers: Hypertension type: essential hypertension Qualified Code(s): I10 - Essential (primary) hypertension (8) Pancreatic cancer metastasized to liver Code(s): C25.9 - MALIGNANT NEOPLASM OF PANCREAS, UNSPECIFIED; C78.7 - SECONDARY MALIG NEOPLASM OF LIVER AND INTRAHEPATIC BILE DUCT Status: Chronic (9) Acute CVA (cerebrovascular accident) Code(s): I63.9 - CEREBRAL INFARCTION, UNSPECIFIED Status: Acute - Plan MRI revealed ac multifocal cva, may switch him to lovenox 70mg sc q12h and dc eliquis on discharge, will watch for now. not sure if he is having focal seizures on paralysed left side with facial twitching as well, he is fully conscious and responds well verbally. EEG, is on increased dose of keppra 1500mg q12h, watch for sedation. no mets in brain on MRI afib in sinus rhythm hemostable encourage po intake on levaquin oral, keppra, asp, lipitor, eliquis, cardizem oral covid 19 is -ve. PT/OT eval dc planning when seizures get controlled, will need rehab d/w over phone, she prefers him going to rehab, she is worried eliquis may not be working and wants him back on lovenox Patient was on lovenox and got switched to eliquis 2 days prior to hospitalization.
[2019-10-22] MEDS: Atorvastatin Calcium 40 MG TAB PO SCH (22:25)
[2019-10-23 05:23] LABS: Anion Gap 16 mmol/L (10-20); BUN (Urea Nitrogen) 9 mg/dL (8.4-25.7); Calc. Creatinine Clearance 82 mL/min (70-130); Carbon Dioxide 21 mmol/L (23-31); Cardiac Risk 2.2 (Less than 4.5); Chloride 101 mmol/L (98-107); Cholesterol 97 mg/dl (< 200 Desired); Estimated GFR-MDRD 89; Glucose 85 mg/dL (80-115); HDL Cholesterol 44 mg/dL (>60 Neg Risk); LDL Cholesterol, Calculated 37 mg/dL; Potassium 4.5 mmol/L (3.5-5.1); Sodium 133 mmol/L (136-145); Triglycerides 80 mg/dL (Less than 150)
[2019-10-23] MEDS: Levothyroxine Sodium 50 MCG TAB PO SCH (05:30)
[2019-10-23 06:39] LABS: #Eosinphils 0.1 thou/uL (0.0-0.7); #Monocytes 0.7 thou/uL (0.11-0.59); #Neutrophils 6.7 thou/uL (1.40-6.50); %Basophils 0.5 % (0.0-1.0); %Monocytes 8.5 % (0.0-10.0); %Neutrophils 77.9 % (42.0-75.0); Hemoglobin 8.6 g/dL (14.0-18.0); Mean Corpuscular Hemoglobin 29.6 pg (27.0-31.0); Mean Corpuscular Volume 86.9 fL (78.0-98.0); Mean Platelet Volume 9.1 fL (7.4-10.4); Platelet Count 204 thou/uL (130-400); RBC Distribution Width 12.5 % (11.5-14.5); Red Blood Cell (RBC) Count 2.92 mill/uL (4.70-6.10); White Blood Cell (WBC) Count 8.6 thou/uL (4.8-10.8)
[2019-10-23] MEDS: Aspirin 81 mg Enteric Coated Tablet PO SCH (09:49)
[2019-10-23] MEDS: Pancrelipase DR 12000 1 CAP PO SCH ×3 (09:49→17:31)
[2019-10-23] MEDS: Apixaban 5 MG TAB PO SCH (09:50)
[2019-10-23] MEDS: levETIRAcetam In NaCl (Iso-Os) 1,500 MG in Premix Bag 1 BAG IVPB SCH ×2 (10:30→22:50)
--- NOTE | 2019-10-23 11:22 | PDOC.HOSPP ---
- Subjective Encounter Date: 10/23/19 Encounter Time: 10:20 Subjective: awake, ate his breakfast no further left focal seizures - Objective Vital Signs & Weight: Vital Signs (12 hours) Temp Pulse Pulse Resp BP BP BP 10/23/19 09:49 79 145/82 H 10/23/19 09:18 88 132/82 10/23/19 08:10 10/23/19 08:02 98.2 F 79 18 145/82 H 10/23/19 04:39 97.1 F L 86 16 133/76 10/23/19 00:31 98.7 F 88 18 139/87 Pulse Ox 10/23/19 09:49 10/23/19 09:18 10/23/19 08:10 97 10/23/19 08:02 97 10/23/19 04:39 97 10/23/19 00:31 98 Weight Admit Weight 143 lb 4.8 oz Weight 143 lb 4.8 oz Most Recent Monitor Data Heart Rate from ECG 67 NIBP 153/92 NIBP BP-Mean 112 Respiration from ECG 26 SpO2 94 I&O: 10/22/19 10/23/19 10/24/19 06:59 06:59 06:59 Intake Total 1948 170 537 Output Total 1950 2700 Balance -2 -8359 537 Result Diagrams: 10/23/19 06:19 10/23/19 04:49 Hospitalist ROS - Medication Medications: Active Medications Generic Name Dose Route Start Last Admin Trade Name Freq PRN Reason Stop Dose Admin Lipase/Protease/Amylase 1 cap 10/18/19 08:00 10/23/19 09:[address] [place] [id number] PO 1 cap TID-WM DAWSON Administration Aspirin 81 mg 10/18/19 09:00 10/23/19 09:49 Ecotrin PO 81 mg DAILY DAWSON Administration Atorvastatin Calcium 40 mg 10/17/19 21:00 10/22/19 22:25 Lipitor PO 40 mg HS DAWSON Administration Diltiazem HCl 120 mg 10/18/19 21:00 10/23/19 09:49 Cardizem Cd PO 120 mg BID DAWSON Administration Levetiracetam 1,500 mg/ Device 100 mls @ 200 mls/hr 10/22/19 11:00 10/23/19 10:30 IVPB 100 mls 1100,2300 DAWSON Administration Fosphenytoin Sodium 300 mg/ 56 mls @ 112 mls/hr 10/22/19 21:00 10/22/19 22:25 Sodium Chloride IVPB 56 mls HS DAWSON Administration Levofloxacin 500 mg 10/22/19 06:00 10/23/19 05:30 Levaquin PO 500 mg 0600 DAWSON Administration Levothyroxine Sodium 50 mcg 10/18/19 06:00 10/23/19 05:30 Synthroid PO 50 mcg 0600 DAWSON Administration Lorazepam 1 mg 10/17/19 17:59 10/22/19 10:01 Ativan SLOW IVP 1 mg Q4H PRN Administration Anxiety/Agitation Methylphenidate HCl 5 mg 10/22/19 09:00 10/23/19 09:38 Ritalin PO 5 mg DAILY DAWSON Administration Metoprolol Tartrate 5 mg 10/17/19 18:00 10/17/19 17:45 Lopressor IVP 5 mg Q6H PRN Administration for Heart rate >140/min Ondansetron HCl 4 mg 10/17/19 17:05 10/18/19 03:32 Zofran IVP 4 mg Q6H PRN Administration Nausea/Vomiting Pantoprazole Sodium 40 mg 10/19/19 09:00 10/23/19 09:49 Protonix PO 40 mg DAILY DAWSON Administration Sodium Chloride 10 ml 10/18/19 09:00 10/23/19 09:50 Flush - Normal Saline IVF 10 ml Q12HR DAWSON Administration - Exam Eye: PERRL, anicteric sclera ENT: no oropharyngeal lesions, moist mucosa Neck: supple, no JVD Heart: RRR, no murmur Respiratory: no wheezes, no rales Gastrointestinal: soft, non-tender, non-distended, normal bowel sounds Extremities: no cyanosis, no edema Neurological: hemiplegia Hosp A/P (1) Sepsis Code(s): A41.9 - SEPSIS, UNSPECIFIED ORGANISM Status: Resolved Qualifiers: Sepsis type: sepsis due to unspecified organism Sepsis acute organ dysfunction status: without acute organ dysfunction Qualified Code(s): A41.9 - Sepsis, unspecified organism (2) UTI (urinary tract infection) Status: Acute Qualifiers: Urinary tract infection type: catheter-associated UTI (3) Atrial fibrillation with RVR Code(s): I48.91 - UNSPECIFIED ATRIAL FIBRILLATION Status: Resolved (4) H/O: CVA (cerebrovascular accident) Code(s): Z86.73 - PRSNL HX OF TIA (TIA), AND CEREB INFRC W/O RESID DEFICITS Status: Chronic (5) Seizure disorder Code(s): G40.909 - EPILEPSY, UNSP, NOT INTRACTABLE, WITHOUT STATUS EPILEPTICUS Status: Chronic (6) Dyslipidemia Code(s): E78.5 - HYPERLIPIDEMIA, UNSPECIFIED Status: Chronic (7) HTN (hypertension) Code(s): I10 - ESSENTIAL (PRIMARY) HYPERTENSION Status: Chronic Qualifiers: Hypertension type: essential hypertension Qualified Code(s): I10 - Essential (primary) hypertension (8) Pancreatic cancer metastasized to liver Code(s): C25.9 - MALIGNANT NEOPLASM OF PANCREAS, UNSPECIFIED; C78.7 - SECONDARY MALIG NEOPLASM OF LIVER AND INTRAHEPATIC BILE DUCT Status: Chronic (9) Acute CVA (cerebrovascular accident) Code(s): I63.9 - CEREBRAL INFARCTION, UNSPECIFIED Status: Acute - Plan MRI revealed ac multifocal cva, may switch him to lovenox 70mg sc q12h focal seizures on left side has resolved EEG, is on increased dose of keppra 1500mg q12h, along with fosphenytoin, watch for sedation. no mets in brain on MRI afib in sinus rhythm hemostable encourage po intake on levaquin oral, asp, lipitor, cardizem oral covid 19 is -ve. PT/OT eval dc planning to rehab d/w over phone, she is worried eliquis may not be working and wants him back on lovenox Patient was on lovenox and got switched to eliquis 2 days prior to hospitalization.
[2019-10-23] MEDS: Enoxaparin Sodium 80 MG/0.8 ML SYRINGE SC SCH (20:11)
[2019-10-23] MEDS: Atorvastatin Calcium 40 MG TAB PO SCH (20:12)
[2019-10-23] MEDS ORDERED: Enoxaparin Sodium 60 MG/0.6 ML SYRINGE SC SCH (21:00)
[2019-10-24 04:29] LABS: #Eosinphils 0.1 thou/uL (0.0-0.7); #Monocytes 0.8 thou/uL (0.11-0.59); #Neutrophils 6.9 thou/uL (1.40-6.50); %Basophils 0.4 % (0.0-1.0); %Eosinophils 0.7 % (0.0-10.0); %Lymphocytes 11.3 % (21.0-51.0); %Monocytes 9.6 % (0.0-10.0); Hemoglobin 10.1 g/dL (14.0-18.0); Mean Corpuscular HGB CONC 32.9 g/dL (32.0-36.0); Mean Corpuscular Volume 88.3 fL (78.0-98.0); Mean Platelet Volume 8.5 fL (7.4-10.4); Platelet Count 211 thou/uL (130-400); RBC Distribution Width 12.7 % (11.5-14.5); Red Blood Cell (RBC) Count 3.49 mill/uL (4.70-6.10); White Blood Cell (WBC) Count 8.8 thou/uL (4.8-10.8)
[2019-10-24 04:49] LABS: Anion Gap 11 mmol/L (10-20); BUN (Urea Nitrogen) 10 mg/dL (8.4-25.7); Calc. Creatinine Clearance 77 mL/min (70-130); Calcium 8.2 mg/dL (7.8-10.44); Carbon Dioxide 28 mmol/L (23-31); Chloride 104 mmol/L (98-107); Estimated GFR-MDRD 83; Glucose 117 mg/dL (80-115); Potassium 3.9 mmol/L (3.5-5.1); Sodium 139 mmol/L (136-145)
[2019-10-24] MEDS: Levothyroxine Sodium 50 MCG TAB PO SCH (05:32)
[2019-10-24] MEDS: Ondansetron PF 4 MG/2 ML Vial IVP PRN (06:13)
[2019-10-24] MEDS: Aspirin 81 mg Enteric Coated Tablet PO SCH (08:18)
[2019-10-24] MEDS: Pancrelipase DR 12000 1 CAP PO SCH ×3 (08:18→17:31)
[2019-10-24] MEDS: Enoxaparin Sodium 80 MG/0.8 ML SYRINGE SC SCH ×2 (08:19→20:21)
[2019-10-24] MEDS ORDERED: levETIRAcetam 500 MG TAB PO SCH (09:00)
[2019-10-24] MEDS: levETIRAcetam 500 mg/5 ml Oral Solution PO SCH ×2 (09:17→20:22)
--- NOTE | 2019-10-24 12:12 | PDOC.HOSPP ---
- Subjective Encounter Date: 10/24/19 Encounter Time: 10:00 Subjective: no new complaints ate his breakfast, no sob - Objective Vital Signs & Weight: Vital Signs (12 hours) Temp Pulse Resp BP BP Pulse Ox 10/24/19 12:00 98.5 F 80 18 146/84 H 96 10/24/19 08:30 95 10/24/19 08:18 65 10/24/19 08:00 97.9 F 65 18 135/69 95 10/24/19 03:50 97.4 F L 79 16 125/83 96 Weight Admit Weight 143 lb 4.8 oz Weight 143 lb 4.8 oz Most Recent Monitor Data Heart Rate from ECG 67 NIBP 153/92 NIBP BP-Mean 112 Respiration from ECG 26 SpO2 94 I&O: 10/23/19 10/24/19 10/25/19 06:59 06:59 06:59 Intake Total 170 1293 Output Total 2700 1550 Balance -2530 -257 Result Diagrams: 10/24/19 04:16 10/24/19 04:16 Hospitalist ROS - Medication Medications: Active Medications Generic Name Dose Route Start Last Admin Trade Name Freq PRN Reason Stop Dose Admin Lipase/Protease/Amylase 1 cap 10/18/19 08:00 10/24/19 08:[address] [id number] PO 1 cap TID-WM DAWSON Administration Aspirin 81 mg 10/18/19 09:00 10/24/19 08:18 Ecotrin PO 81 mg DAILY DAWSON Administration Atorvastatin Calcium 40 mg 10/17/19 21:00 10/23/19 20:12 Lipitor PO 40 mg HS DAWSON Administration Diltiazem HCl 120 mg 10/18/19 21:00 10/24/19 08:18 Cardizem Cd PO 120 mg BID DAWSON Administration Enoxaparin Sodium 70 mg 10/23/19 21:00 10/24/19 08:19 Lovenox SC 70 mg 0900,2100 DAWSON Administration Levetiracetam 1,000 mg 10/24/19 09:00 10/24/19 09:17 Keppra Oral Solution PO 1,000 mg BID DAWSON Administration Levofloxacin 500 mg 10/22/19 06:00 10/24/19 05:32 Levaquin PO 500 mg 0600 DAWSON Administration Levothyroxine Sodium 50 mcg 10/18/19 06:00 10/24/19 05:32 Synthroid PO 50 mcg 0600 DAWSON Administration Lorazepam 1 mg 10/17/19 17:59 10/22/19 10:01 Ativan SLOW IVP 1 mg Q4H PRN Administration Anxiety/Agitation Methylphenidate HCl 5 mg 10/22/19 09:00 10/24/19 09:17 Ritalin PO 5 mg DAILY DAWSON Administration Metoprolol Tartrate 5 mg 10/17/19 18:00 10/17/19 17:45 Lopressor IVP 5 mg Q6H PRN Administration for Heart rate >140/min Ondansetron HCl 4 mg 10/17/19 17:05 10/24/19 06:13 Zofran IVP 4 mg Q6H PRN Administration Nausea/Vomiting Pantoprazole Sodium 40 mg 10/19/19 09:00 10/24/19 08:18 Protonix PO 40 mg DAILY DAWSON Administration Phenytoin Sodium 100 mg 10/24/19 09:00 10/24/19 08:20 Dilantin PO 100 mg TID DAWSON Administration Sodium Chloride 10 ml 10/18/19 09:00 10/24/19 08:19 Flush - Normal Saline IVF 10 ml Q12HR DAWSON Administration - Exam General Appearance: awake alert Eye: PERRL, anicteric sclera ENT: no oropharyngeal lesions, moist mucosa Neck: supple, no JVD Heart: RRR, no murmur Respiratory: no wheezes, no rales Gastrointestinal: soft, non-tender, non-distended, normal bowel sounds Extremities: no cyanosis, no edema Neurological: cranial nerve grossly intact, no focal deficits Psychiatric: A&O x 3 Hosp A/P (1) Sepsis Code(s): A41.9 - SEPSIS, UNSPECIFIED ORGANISM Status: Resolved Qualifiers: Sepsis type: sepsis due to unspecified organism Sepsis acute organ dysfunction status: without acute organ dysfunction Qualified Code(s): A41.9 - Sepsis, unspecified organism (2) UTI (urinary tract infection) Status: Acute Qualifiers: Urinary tract infection type: catheter-associated UTI (3) Atrial fibrillation with RVR Code(s): I48.91 - UNSPECIFIED ATRIAL FIBRILLATION Status: Resolved (4) H/O: CVA (cerebrovascular accident) Code(s): Z86.73 - PRSNL HX OF TIA (TIA), AND CEREB INFRC W/O RESID DEFICITS Status: Chronic (5) Seizure disorder Code(s): G40.909 - EPILEPSY, UNSP, NOT INTRACTABLE, WITHOUT STATUS EPILEPTICUS Status: Chronic (6) Dyslipidemia Code(s): E78.5 - HYPERLIPIDEMIA, UNSPECIFIED Status: Chronic (7) HTN (hypertension) Code(s): I10 - ESSENTIAL (PRIMARY) HYPERTENSION Status: Chronic Qualifiers: Hypertension type: essential hypertension Qualified Code(s): I10 - Essential (primary) hypertension (8) Pancreatic cancer metastasized to liver Code(s): C25.9 - MALIGNANT NEOPLASM OF PANCREAS, UNSPECIFIED; C78.7 - SECONDARY MALIG NEOPLASM OF LIVER AND INTRAHEPATIC BILE DUCT Status: Chronic (9) Acute CVA (cerebrovascular accident) Code(s): I63.9 - CEREBRAL INFARCTION, UNSPECIFIED Status: Acute - Plan MRI shows ac multifocal cva, is on lovenox 70mg sc q12h in view of pancreatic malignancy focal seizures on left side, ?conversion, neuro to f/u EEG, is on increased dose of keppra 1500mg q12h, along with fosphenytoin, watch for sedation. no mets in brain on MRI afib in sinus rhythm hemostable encourage po intake on levaquin oral, asp, lipitor, cardizem oral covid 19 is -ve. PT/OT eval dc planning to rehab Patient was on lovenox and got switched to eliquis 2 days prior to hospitalization.
[2019-10-24] MEDS: Senokot S 8.6-50 MG TAB PO PRN (20:22)
[2019-10-24] MEDS: Atorvastatin Calcium 40 MG TAB PO SCH (20:22)
[2019-10-25 04:36] LABS: #Eosinphils 0.1 thou/uL (0.0-0.7); #Lymphocytes 1.1 thou/uL (1.20-3.40); #Monocytes 0.6 thou/uL (0.11-0.59); #Neutrophils 5.2 thou/uL (1.40-6.50); %Basophils 0.3 % (0.0-1.0); %Eosinophils 0.9 % (0.0-10.0); %Lymphocytes 15.5 % (21.0-51.0); %Monocytes 9.1 % (0.0-10.0); %Neutrophils 74.2 % (42.0-75.0); Hemoglobin 10.1 g/dL (14.0-18.0); Mean Corpuscular HGB CONC 33.6 g/dL (32.0-36.0); Mean Corpuscular Hemoglobin 29.6 pg (27.0-31.0); Mean Corpuscular Volume 88.1 fL (78.0-98.0); Mean Platelet Volume 8.5 fL (7.4-10.4); Platelet Count 234 thou/uL (130-400); RBC Distribution Width 12.6 % (11.5-14.5); Red Blood Cell (RBC) Count 3.42 mill/uL (4.70-6.10)
[2019-10-25 05:00] LABS: Anion Gap 11 mmol/L (10-20); BUN (Urea Nitrogen) 10 mg/dL (8.4-25.7); Calc. Creatinine Clearance 72 mL/min (70-130); Calcium 8.3 mg/dL (7.8-10.44); Carbon Dioxide 27 mmol/L (23-31); Chloride 103 mmol/L (98-107); Estimated GFR-MDRD 77; Glucose 103 mg/dL (80-115); Potassium 3.9 mmol/L (3.5-5.1); Sodium 137 mmol/L (136-145)
[2019-10-25] MEDS: Levothyroxine Sodium 50 MCG TAB PO SCH (06:01)
[2019-10-25] MEDS: Enoxaparin Sodium 80 MG/0.8 ML SYRINGE SC SCH ×2 (08:42→20:25)
[2019-10-25] MEDS: Pancrelipase DR 12000 1 CAP PO SCH ×3 (08:42→18:22)
[2019-10-25] MEDS: Aspirin 81 mg Enteric Coated Tablet PO SCH (08:43)
[2019-10-25] MEDS: levETIRAcetam 500 mg/5 ml Oral Solution PO SCH ×2 (08:43→20:55)
[2019-10-25] MEDS ORDERED: chlorproMAZINE HCl 25 MG TAB PO PRN (10:18)
--- NOTE | 2019-10-25 10:28 | EEG ---
Referring Physician: JARVIS EEG # [id number] TEST TYPE: URGENT PORTABLE INPATIENT REPORT: AN EEG USING THE INTERNATIONAL TEN-TWENTY SYSTEM OF ELECTRODE PLACEMENT WAS PERFORMED. The waking background is an 8-9 hertz alpha frequency. There is focal slowing over the right hemisphere throughout the study. There is some intermittent sharp and slow activity intermixed with this. Photic stimulation was unremarkable. No sleep was seen. IMPRESSION: THIS IS AN ABNORMAL STUDY FOR THE FINDINGS OF FOCAL SLOWING AND SHARP ACTIVITY IN THE RIGHT HEMISPHERE CONSISTENT WITH A POSSIBLE SEIZURE FOCUS. Human Service Worker: BRUCE Condenser Setter: [email or web address] CASILLAS
--- NOTE | 2019-10-25 12:09 | PQF ---
CLINICAL DOCUMENTATION IMPROVEMENT CLARIFICATION FORM: ICD-10 Updated PLEASE DO AN ADDENDUM TO THE PROGRESS NOTE WITH ANY DOCUMENTATION UPDATES OR ADDITIONS AND CARRY THROUGH TO DC SUMMARY. THANK YOU. DATE: 10/25/2019 ; 10/26/2019 ATTN: Dr. Leon Please exercise your independent, professional judgment in responding to the clarification form. Clinical indicators are provided on the bottom of this form for your review Please check appropriate box(es): [ ] Sepsis present on admission [ ] Sepsis NOT present on admission [ ] Unable to determine [ ] Due to UTI due to sorto catheter. [ ] Due to UTI not due to sorto catheter [ ] Due to other: [ ] Localized infection without sepsis [ ] Other diagnosis _pl send to Santhosh Leon [ ] Unable to determine For continuity of documentation, please document condition throughout progress notes and discharge summary. Thank You. CLINICAL INDICATORS - SIGNS / SYMPTOMS / LABS / RESULTS AND LOCATION IN MR H&P 10/16: VS: BP 156/90, pulse 136, resp. 22, temp. 99 at present;104 degrees rectal on arrival, 92% RA 10/19 (Santhosh) Sepsis catheter-associated UTI wbc count is slowly trending down. d/w Dr. Ignacio pathologist re: delay in covid 19 results, his specimen quantity is very small and couldn't be done locally, hence its been sent to ref lab ..which will take 3-5 days to result from today 10/23 (Santhosh) Sepsis, unspecifed organism. Resolved catheter-associated UTI Plan: covid 19 is -ve RISKS: ER NURSING ASSESS: Indwelling urinary catheter present. Pt came to hospital with sorto catheter. H&P 10/16: Hx of pancreatic cancer,. Hx of chronic a fib. hx CVA with left hemiplegia. The pt admitted to IMCU for sepsis, seizure with hx of chronic sz do, a fib with RVR, metabolic encephalopathy likely due to sepsis and sz at present. TREATMENT: H&P 10/16: Impression and plan: received 30 ml/kg sepsis protocol fluid in the ER. ID Consult 10/20/2019 Order 10/16-10/17: IV Rocephin 2 gm IV q 24 hr Order 10/17- 10/20: IV Meropenem 1 gm MAR 10/20: Levaquin 500mg po 0600 Thank you, Ashleigh (This form is maintained as a part of the permanent medical record) 2015 [employer]. All Rights Reserved Ashleigh Laguna, RN, BSN [email or web address] [employer] [facility]
--- NOTE | 2019-10-25 12:17 | PDOC.HOSPP ---
- Subjective Encounter Date: 10/25/19 Encounter Time: 09:50 Subjective: pt states that he is constipated; have hiccups that started this am. had his breakfast. - Objective Vital Signs & Weight: Vital Signs (12 hours) Temp Pulse Resp BP BP BP Pulse Ox 10/25/19 08:42 97.6 F 84 20 140/84 140/84 96 10/25/19 04:45 97.8 F 78 20 145/82 H 93 L Weight Admit Weight 143 lb 4.8 oz Weight 143 lb 4.8 oz Most Recent Monitor Data Heart Rate from ECG 67 NIBP 153/92 NIBP BP-Mean 112 Respiration from ECG 26 SpO2 94 I&O: 10/24/19 10/25/19 10/26/19 06:59 06:59 06:59 Intake Total 1293 1060 Output Total 1550 2024 Balance -257 -965 Result Diagrams: 10/25/19 04:16 10/25/19 04:16 Hospitalist ROS - Medication Medications: Active Medications Generic Name Dose Route Start Last Admin Trade Name Traceq PRN Reason Stop Dose Admin Lipase/Protease/Amylase 1 cap 10/18/19 08:00 10/25/19 08:[address] [place] [address] [id number] PO 1 cap TID-WM DAWSON Administration Aspirin 81 mg 10/18/19 09:00 10/25/19 08:43 Ecotrin PO 81 mg DAILY DAWSON Administration Atorvastatin Calcium 40 mg 10/17/19 21:00 10/24/19 20:22 Lipitor PO 40 mg HS DAWSON Administration Diltiazem HCl 120 mg 10/18/19 21:00 10/25/19 08:42 Cardizem Cd PO 120 mg BID DAWSON Administration Enoxaparin Sodium 70 mg 10/23/19 21:00 10/25/19 08:42 Lovenox SC 70 mg 0900,2100 DAWSON Administration Levetiracetam 1,000 mg 10/24/19 09:00 10/25/19 08:43 Keppra Oral Solution PO 1,000 mg BID DAWSON Administration Levofloxacin 500 mg 10/22/19 06:00 10/25/19 06:01 Levaquin PO 500 mg 0600 DAWSON Administration Levothyroxine Sodium 50 mcg 10/18/19 06:00 10/25/19 06:01 Synthroid PO 50 mcg 0600 DAWSON Administration Lorazepam 1 mg 10/17/19 17:59 10/22/19 10:01 Ativan SLOW IVP 1 mg Q4H PRN Administration Anxiety/Agitation Methylphenidate HCl 5 mg 10/22/19 09:00 10/25/19 09:04 Ritalin PO 5 mg DAILY DAWSON Administration Metoprolol Tartrate 5 mg 10/17/19 18:00 10/17/19 17:45 Lopressor IVP 5 mg Q6H PRN Administration for Heart rate >140/min Ondansetron HCl 4 mg 10/17/19 17:05 10/24/19 06:13 Zofran IVP 4 mg Q6H PRN Administration Nausea/Vomiting Pantoprazole Sodium 40 mg 10/19/19 09:00 10/25/19 08:43 Protonix PO 40 mg DAILY DAWSON Administration Phenytoin Sodium 100 mg 10/24/19 09:00 10/25/19 08:43 Dilantin PO 100 mg TID DAWSON Administration Senna/Docusate Sodium 2 tab 10/17/19 17:05 10/24/19 20:22 Senokot S PO 2 tab BID PRN Administration Constipation Sodium Chloride 10 ml 10/18/19 09:00 10/25/19 08:43 Flush - Normal Saline IVF 10 ml Q12HR DAWSON Administration - Exam General Appearance: ill appearing Eye: PERRL ENT: normocephalic atraumatic Neck: supple Heart: RRR, normal peripheral pulses Respiratory: CTAB, normal chest expansion Gastrointestinal: soft, normal bowel sounds Hosp A/P - Plan (1) Sepsis Code(s): A41.9 - SEPSIS, UNSPECIFIED ORGANISM Status: Resolved Qualifiers: Sepsis type: sepsis due to unspecified organism Sepsis acute organ dysfunction status: without acute organ dysfunction Qualified Code(s): A41.9 - Sepsis, unspecified organism (2) UTI (urinary tract infection) E,coli and acenetob acter, sens to FQ -- on --stop on (3) Atrial fibrillation with RVR Code(s): I48.91 - UNSPECIFIED ATRIAL FIBRILLATION Status: Resolved -on lovenox (4) H/O: CVA (cerebrovascular accident) Code(s): Z86.73 - PRSNL HX OF TIA (TIA), AND CEREB INFRC W/O RESID DEFICITS Status: Chronic (9) Acute CVA (cerebrovascular accident) (5) Seizure disorder focal seizures on left side, ?conversion, neuro to f/u EEG, is on increased dose of keppra 1500mg q12h, along with fosphenytoin. -pt seems to have still breakthrough seizure this am. -prob w.. hx of stroke, as trigger, MRI r/o mets. (6) Dyslipidemia Code(s): E78.5 - HYPERLIPIDEMIA, UNSPECIFIED Status: Chronic (7) HTN (hypertension) Code(s): I10 - ESSENTIAL (PRIMARY) HYPERTENSION Status: Chronic Qualifiers: Hypertension type: essential hypertension Qualified Code(s): I10 - Essential (primary) hypertension (8) Pancreatic cancer metastasized to liver . MRI shows ac multifocal cva, is on lovenox 70mg sc q12h in view of pancreatic malignancy -unclear whehter he is going through any palliative treatment on levaquin oral--- stop on , asp, lipitor, cardizem oral covid 19 is -ve. PT/OT eval Patient was on lovenox and got switched to eliquis 2 days prior to hospitalization. pending rehab placement.
[2019-10-25] MEDS: Senokot S 8.6-50 MG TAB PO PRN (12:34)
[2019-10-25] MEDS ORDERED: Fosphenytoin Sodium 400 MG in Sodium Chloride 0.9% 50 ML IVPB SCH (14:30)
--- NOTE | 2019-10-25 14:39 | PRG ---
DATE OF SERVICE: 10/25/2019 Mr. Baker had some sedation issues related to his Keppra over the weekend. His dose was cut back to 2000 mg per day. He has begun having more frequent focal seizures today. His Dilantin level was 7. His Keppra level was 40. I have recommended 400 mg IV loading dose of Dilantin and to increase his daily dose to 200 mg twice a day. We will continue to monitor his course. Job ID: [id number]
[2019-10-25] MEDS: Atorvastatin Calcium 40 MG TAB PO SCH (20:25)
[2019-10-25] MEDS: Fosphenytoin Sodium 200 MG in Sodium Chloride 0.9% 50 ML IVPB SCH (20:34)
[2019-10-26] MEDS: Lorazepam 2 MG/ML VIAL SLOW IVP PRN (01:05)
[2019-10-26] MEDS: Acetaminophen 325 MG TAB PO PRN ×2 (01:10→10:46)
[2019-10-26 05:32] LABS: #Eosinphils 0.1 thou/uL (0.0-0.7); #Lymphocytes 1.1 thou/uL (1.20-3.40); #Monocytes 0.6 thou/uL (0.11-0.59); #Neutrophils 3.3 thou/uL (1.40-6.50); %Basophils 0.2 % (0.0-1.0); %Eosinophils 1.1 % (0.0-10.0); %Lymphocytes 21.2 % (21.0-51.0); %Monocytes 11.7 % (0.0-10.0); %Neutrophils 65.8 % (42.0-75.0); Hemoglobin 10.8 g/dL (14.0-18.0); Mean Corpuscular HGB CONC 32.2 g/dL (32.0-36.0); Mean Corpuscular Hemoglobin 28.5 pg (27.0-31.0); Mean Corpuscular Volume 88.6 fL (78.0-98.0); Platelet Count 234 thou/uL (130-400); RBC Distribution Width 12.8 % (11.5-14.5); Red Blood Cell (RBC) Count 3.78 mill/uL (4.70-6.10); White Blood Cell (WBC) Count 5.1 thou/uL (4.8-10.8)
[2019-10-26 05:51] LABS: Anion Gap 13 mmol/L (10-20); BUN (Urea Nitrogen) 12 mg/dL (8.4-25.7); Calc. Creatinine Clearance 74 mL/min (70-130); Calcium 8.5 mg/dL (7.8-10.44); Carbon Dioxide 24 mmol/L (23-31); Chloride 106 mmol/L (98-107); Estimated GFR-MDRD 80; Glucose 69 mg/dL (80-115); Potassium 4.2 mmol/L (3.5-5.1); Sodium 139 mmol/L (136-145)
[2019-10-26] MEDS: Levothyroxine Sodium 50 MCG TAB PO SCH (06:14)
[2019-10-26] MEDS: Enoxaparin Sodium 80 MG/0.8 ML SYRINGE SC SCH ×2 (09:07→20:45)
[2019-10-26] MEDS: Fosphenytoin Sodium 200 MG in Sodium Chloride 0.9% 50 ML IVPB SCH ×2 (09:07→20:46)
[2019-10-26] MEDS: levETIRAcetam 500 mg/5 ml Oral Solution PO SCH ×2 (09:07→20:44)
[2019-10-26] MEDS: Pancrelipase DR 12000 1 CAP PO SCH ×3 (09:08→18:02)
[2019-10-26] MEDS: Aspirin 81 mg Enteric Coated Tablet PO SCH (09:08)
--- NOTE | 2019-10-26 12:39 | PDOC.HOSPP ---
- Subjective Encounter Date: 10/26/19 Encounter Time: 10:20 Subjective: pt still has left sided myoclonic jerks. Dilantin dose adjusted. pt supposedly had an appt at [facility] for october 19 -- radiation. - Objective Vital Signs & Weight: Vital Signs (12 hours) Temp Pulse Resp BP BP Pulse Ox 10/26/19 11:50 97.9 F 88 17 140/82 97 10/26/19 09:13 97 139/84 10/26/19 07:48 97.5 F L 89 18 114/74 94 L 10/26/19 04:32 98.4 F 89 14 114/74 97 Weight Admit Weight 143 lb 4.8 oz Weight 143 lb 4.8 oz Most Recent Monitor Data Heart Rate from ECG 67 NIBP 153/92 NIBP BP-Mean 112 Respiration from ECG 26 SpO2 94 I&O: 10/25/19 10/26/19 10/27/19 06:59 06:59 06:59 Intake Total 1060 500.5 Output Total 1 4514 Balance -965 -1324.5 Result Diagrams: 10/26/19 04:20 10/26/19 04:20 Hospitalist ROS - Medication Medications: Active Medications Generic Name Dose Route Start Last Admin Trade Name Freq PRN Reason Stop Dose Admin Acetaminophen 650 mg 10/17/19 17:05 10/26/19 10:46 Tylenol PO 650 mg Q4H PRN Administration Headache/Fever/Mild Pain (1-3) Lipase/Protease/Amylase 1 cap 10/18/19 08:00 10/26/19 09:08 Crejose Leon [id number] PO 1 cap TID-WM DAWSON Administration Aspirin 81 mg 10/18/19 09:00 10/26/19 09:08 Ecotrin PO 81 mg DAILY DAWSON Administration Atorvastatin Calcium 40 mg 10/17/19 21:00 10/25/19 20:25 Lipitor PO 40 mg HS DAWSON Administration Diltiazem HCl 120 mg 10/18/19 21:00 10/26/19 09:13 Cardizem Cd PO 120 mg BID DAWSON Administration Enoxaparin Sodium 70 mg 10/23/19 21:00 10/26/19 09:07 Lovenox SC 70 mg 0900,2100 DAWSON Administration Fosphenytoin Sodium 200 mg/ 54 mls @ 108 mls/hr 10/25/19 21:00 10/26/19 09:07 Sodium Chloride IVPB 54 mls BID DAWSON Administration Levetiracetam 1,000 mg 10/24/19 09:00 10/26/19 09:07 Keppra Oral Solution PO 1,000 mg BID DAWSON Administration Levofloxacin 500 mg 10/22/19 06:00 10/26/19 06:13 Levaquin PO 500 mg 0600 DAWSON Administration Levothyroxine Sodium 50 mcg 10/18/19 06:00 10/26/19 06:14 Synthroid PO 50 mcg 0600 DAWSON Administration Lorazepam 1 mg 10/17/19 17:59 10/26/19 01:05 Ativan SLOW IVP 1 mg Q4H PRN Administration Anxiety/Agitation Methylphenidate HCl 5 mg 10/22/19 09:00 10/26/19 09:12 Ritalin PO 5 mg DAILY DAWSON Administration Metoprolol Tartrate 5 mg 10/17/19 18:00 10/17/19 17:45 Lopressor IVP 5 mg Q6H PRN Administration for Heart rate >140/min Ondansetron HCl 4 mg 10/17/19 17:05 10/24/19 06:13 Zofran IVP 4 mg Q6H PRN Administration Nausea/Vomiting Pantoprazole Sodium 40 mg 10/19/19 09:00 10/26/19 09:10 Protonix PO 40 mg DAILY DAWSON Administration Senna/Docusate Sodium 2 tab 10/17/19 17:05 10/25/19 12:34 Senokot S PO 2 tab BID PRN Administration Constipation Sodium Chloride 10 ml 10/18/19 09:00 10/26/19 09:10 Flush - Normal Saline IVF 10 ml Q12HR DAWSON Administration - Exam General Appearance: NAD, awake alert, ill appearing Eye: PERRL ENT: normocephalic atraumatic Neck: supple Heart: RRR Respiratory: CTAB, normal chest expansion Gastrointestinal: soft, normal bowel sounds Hosp A/P - Plan (1) Sepsis Code(s): A41.9 - SEPSIS, UNSPECIFIED ORGANISM Status: Resolved Qualifiers: Sepsis type: sepsis due to unspecified organism Sepsis acute organ dysfunction status: without acute organ dysfunction Qualified Code(s): A41.9 - Sepsis, unspecified organism (2) UTI (urinary tract infection) E,coli and acenetob acter, sens to FQ -- on LQ--stop on (3) Atrial fibrillation with RVR Code(s): I48.91 - UNSPECIFIED ATRIAL FIBRILLATION Status: Resolved -on lovenox (4) H/O: CVA (cerebrovascular accident) Code(s): Z86.73 - PRSNL HX OF TIA (TIA), AND CEREB INFRC W/O RESID DEFICITS Status: Chronic (9) Acute CVA (cerebrovascular accident) -MRI r/o mets. ------------> rpt reviewed and no mets, but changes suggestive of infarcts. (5) Seizure disorder focal seizures on left side, ?conversion, neuro to f/u EEG, is on increased dose of keppra 1500mg q12h, along with fosphenytoin-------- > changed to dilantin. -pt seems to have still breakthrough seizure this am. - Dilantin dose adjusted. pt supposedly had an appt at [facility] for october 19 -- radiation. (6) Dyslipidemia Code(s): E78.5 - HYPERLIPIDEMIA, UNSPECIFIED Status: Chronic (7) HTN (hypertension) Code(s): I10 - ESSENTIAL (PRIMARY) HYPERTENSION Status: Chronic Qualifiers: Hypertension type: essential hypertension Qualified Code(s): I10 - Essential (primary) hypertension (8) Pancreatic cancer metastasized to liver . MRI brain - no mets but shows ac multifocal cva, is on lovenox 70mg sc q12h in view of pancreatic malignancy - supposedly had an appt at [facility] for october 19 -- for radiation.--need to be rescheduled. - diagnosed in 2013, had whipples procedure. - last radiation roughly 18 months ago. on levaquin oral--- stop on , asp, lipitor, cardizem oral covid 19 is -ve. PT/OT eval Patient was on lovenox and got switched to eliquis 2 days prior to hospitalization. Seizure being managed with meds titration. pending rehab placement, when medically able.
[2019-10-26 14:17] LABS: ANA Symphony (Qualitative) Negative (Negative); ANA Symphony (Quantitative) 0.1 Ratio (< 0.7 Negative); dsDNA IgG Antibody 0.6 IU/mL (<10 Negative)
--- NOTE | 2019-10-26 16:39 | PRG ---
DATE OF SERVICE: 10/26/2019 Mr. Baker continues to have some simple partial seizure activity involving the left shoulder. This is fairly constant as I was talking with him this afternoon. He denies that there is any associated pain. He does not feel that it involves his leg or affects his ability to walk or speak. We increased his Dilantin dose yesterday to 400 mg per day, received a 400 mg loading dose given his level was 7. This does not seem to correct the situation. His Keppra dose had to be reduced secondary to some sedation. I have suggested we add Tegretol 200 mg twice a day, may want to wean him from Keppra if this is effective. Job ID: [id number]
[2019-10-26] MEDS: Atorvastatin Calcium 40 MG TAB PO SCH (20:45)
[2019-10-26] MEDS: carBAMazepine 200 MG TAB PO SCH (20:45)
[2019-10-26] MEDS: Ondansetron PF 4 MG/2 ML Vial IVP PRN (20:53)
[2019-10-27 04:24] LABS: #Basophils 0.1 thou/uL (0.0-0.2); #Eosinphils 0.1 thou/uL (0.0-0.7); #Monocytes 0.5 thou/uL (0.11-0.59); #Neutrophils 3.5 thou/uL (1.40-6.50); %Basophils 1.3 % (0.0-1.0); %Eosinophils 1.3 % (0.0-10.0); %Lymphocytes 18.9 % (21.0-51.0); %Monocytes 9.8 % (0.0-10.0); %Neutrophils 68.8 % (42.0-75.0); Hemoglobin 10.3 g/dL (14.0-18.0); Mean Corpuscular HGB CONC 32.6 g/dL (32.0-36.0); Mean Corpuscular Hemoglobin 28.9 pg (27.0-31.0); Mean Corpuscular Volume 88.8 fL (78.0-98.0); Mean Platelet Volume 8.6 fL (7.4-10.4); Platelet Count 244 thou/uL (130-400); RBC Distribution Width 12.6 % (11.5-14.5); Red Blood Cell (RBC) Count 3.58 mill/uL (4.70-6.10); White Blood Cell (WBC) Count 5.1 thou/uL (4.8-10.8)
[2019-10-27 04:50] LABS: Anion Gap 11 mmol/L (10-20); BUN (Urea Nitrogen) 17 mg/dL (8.4-25.7); Calc. Creatinine Clearance 69 mL/min (70-130); Calcium 8.4 mg/dL (7.8-10.44); Carbon Dioxide 24 mmol/L (23-31); Chloride 106 mmol/L (98-107); Estimated GFR-MDRD 73; Glucose 94 mg/dL (80-115); Potassium 4.1 mmol/L (3.5-5.1); Sodium 137 mmol/L (136-145)
[2019-10-27] MEDS: Levothyroxine Sodium 50 MCG TAB PO SCH (05:20)
[2019-10-27] MEDS: Aspirin 81 mg Enteric Coated Tablet PO SCH (09:29)
[2019-10-27] MEDS: Pancrelipase DR 12000 1 CAP PO SCH ×3 (09:30→17:02)
[2019-10-27] MEDS: carBAMazepine 200 MG TAB PO SCH ×2 (09:32→20:43)
[2019-10-27] MEDS: Fosphenytoin Sodium 200 MG in Sodium Chloride 0.9% 50 ML IVPB SCH ×2 (09:32→20:47)
[2019-10-27] MEDS: Enoxaparin Sodium 80 MG/0.8 ML SYRINGE SC SCH ×2 (09:33→20:45)
[2019-10-27] MEDS: levETIRAcetam 500 mg/5 ml Oral Solution PO SCH ×2 (09:41→20:47)
[2019-10-27] MEDS: Lorazepam 2 MG/ML VIAL SLOW IVP PRN (12:48)
--- NOTE | 2019-10-27 14:32 | PQF ---
CLINICAL DOCUMENTATION IMPROVEMENT CLARIFICATION FORM: ICD-10 Updated PLEASE DO AN ADDENDUM TO THE PROGRESS NOTE WITH ANY DOCUMENTATION UPDATES OR ADDITIONS AND CARRY THROUGH TO DC SUMMARY. THANK YOU. DATE: 10/27/2019 ATTN: Dr. Trevizo Please exercise your independent, professional judgment in responding to the clarification form. Clinical indicators are provided on the bottom of this form for your review Please check appropriate box(es): [x ] Sepsis present on admission [ ] Sepsis NOT present on admission [ ] Unable to determine [ x] Due to UTI due to sorto catheter. [ ] Due to UTI not due to sorto catheter [ ] Due to other: [ ] Localized infection without sepsis [ ] Other diagnosis [ ] Unable to determine For continuity of documentation, please document condition throughout progress notes and discharge summary. Thank You. CLINICAL INDICATORS - SIGNS / SYMPTOMS / LABS / RESULTS AND LOCATION IN MR H&P 10/16: VS: BP 156/90, pulse 136, resp. 22, temp. 99 at present; 104 degrees rectal on arrival, 92% RA 10/19 (Santhosh) Sepsis catheter-associated UTI wbc count is slowly trending down. d/w Dr. Ignacio pathologist re: delay in covid 19 results, his specimen quantity is very small and couldn't be done locally, hence its been sent to ref lab ..which will take 3-5 days to result from today 10/23 (Santhosh) Sepsis, unspecified organism. Resolved catheter-associated UTI Plan: covid 19 is -ve RISKS: ER NURSING ASSESSMENT: Indwelling urinary catheter present. Pt came to hospital with sorto catheter. H&P 10/16: Hx of pancreatic cancer,. Hx of chronic a fib. hx CVA with left hemiplegia. The pt admitted to IMCU for sepsis, seizure with hx of chronic sz do, a fib with RVR, metabolic encephalopathy likely due to sepsis and sz at present. TREATMENT: H&P 10/16: Impression and plan: received 30 ml/kg sepsis protocol fluid in the ER. ID Consult 10/20/2019 Order 10/16-10/17: IV Rocephin 2 gm IV q 24 hr Order 10/17- 10/20: IV Meropenem 1 gm MAR 10/20: Levaquin 500mg po 0600 Thank you, Ashleigh (This form is maintained as a part of the permanent medical record) 2015 [employer]. All Rights Reserved Ashleigh Laguna RN, BSN [email or web address]
--- NOTE | 2019-10-27 14:48 | PDOC.HOSPP ---
- Subjective Encounter Date: 10/27/19 Encounter Time: 11:45 Subjective: pt resting - for brief moment, i noticed he did not had any left shoulder jerks. tegretol started. appreciate the help from Dr. Mahan. - Objective Vital Signs & Weight: Vital Signs (12 hours) Temp Pulse Pulse Pulse Resp BP BP 10/27/19 11:34 97.9 F 95 16 10/27/19 09:30 94 10/27/19 08:43 86 82 143/93 H 159/87 H 10/27/19 08:00 10/27/19 07:15 98.4 F 94 16 10/27/19 04:00 98.2 F 82 16 BP BP BP Pulse Ox 10/27/19 11:34 137/90 97 10/27/19 09:30 10/27/19 08:43 10/27/19 08:00 94 L 10/27/19 07:15 141/90 H 94 L 10/27/19 04:00 141/89 H 96 Weight Admit Weight 143 lb 4.8 oz Weight 143 lb 4.8 oz Most Recent Monitor Data Heart Rate from ECG 67 NIBP 153/92 NIBP BP-Mean 112 Respiration from ECG 26 SpO2 94 I&O: 10/26/19 10/27/19 10/28/19 06:59 06:59 06:59 Intake Total 500.5 1004 Output Total 1825 1300 Balance -1324.5 -296 Result Diagrams: 10/27/19 04:09 10/27/19 04:09 Hospitalist ROS - Medication Medications: Active Medications Generic Name Dose Route Start Last Admin Trade Name Freq PRN Reason Stop Dose Admin Acetaminophen 650 mg 10/17/19 17:05 10/26/19 10:46 Tylenol PO 650 mg Q4H PRN Administration Headache/Fever/Mild Pain (1-3) Lipase/Protease/Amylase 1 cap 10/18/19 08:00 10/27/19 12:[address] [place] [address] PO 1 cap TID-WM DAWSON Administration Aspirin 81 mg 10/18/19 09:00 10/27/19 09:29 Ecotrin PO 81 mg DAILY DAWSON Administration Atorvastatin Calcium 40 mg 10/17/19 21:00 10/26/19 20:45 Lipitor PO 40 mg HS DAWSON Administration Carbamazepine 200 mg 10/26/19 21:00 10/27/19 09:32 Tegretol PO 200 mg BID DAWSON Administration Diltiazem HCl 120 mg 10/18/19 21:00 10/27/19 09:30 Cardizem Cd PO 120 mg BID DAWSON Administration Enoxaparin Sodium 70 mg 10/23/19 21:00 10/27/19 09:33 Lovenox SC 70 mg 0900,2100 DAWSON Administration Fosphenytoin Sodium 200 mg/ 54 mls @ 108 mls/hr 10/25/19 21:00 10/27/19 09:32 Sodium Chloride IVPB 54 mls BID DAWSON Administration Levetiracetam 1,000 mg 10/24/19 09:00 10/27/19 09:41 Keppra Oral Solution PO 1,000 mg BID DAWSON Administration Levofloxacin 500 mg 10/22/19 06:00 10/27/19 05:20 Levaquin PO 500 mg 0600 DAWSON Administration Levothyroxine Sodium 50 mcg 10/18/19 06:00 10/27/19 05:20 Synthroid PO 50 mcg 0600 DAWSON Administration Lorazepam 1 mg 10/17/19 17:59 10/27/19 12:48 Ativan SLOW IVP 1 mg Q4H PRN Administration Anxiety/Agitation Methylphenidate HCl 5 mg 10/22/19 09:00 10/27/19 10:15 Ritalin PO 5 mg DAILY DAWSON Administration Metoprolol Tartrate 5 mg 10/17/19 18:00 10/17/19 17:45 Lopressor IVP 5 mg Q6H PRN Administration for Heart rate >140/min Ondansetron HCl 4 mg 10/17/19 17:05 10/26/19 20:53 Zofran IVP 4 mg Q6H PRN Administration Nausea/Vomiting Pantoprazole Sodium 40 mg 10/19/19 09:00 10/27/19 09:30 Protonix PO 40 mg DAILY DAWSON Administration Senna/Docusate Sodium 2 tab 10/17/19 17:05 10/25/19 12:34 Senokot S PO 2 tab BID PRN Administration Constipation Sodium Chloride 10 ml 10/18/19 09:00 10/27/19 09:42 Flush - Normal Saline IVF 10 ml Q12HR DAWSON Administration Sodium Chloride 10 ml 10/18/19 07:01 10/27/19 12:48 Flush - Normal Saline IVF 10 ml PRN PRN Administration Saline Flush - Exam General Appearance: NAD, awake alert Eye: PERRL ENT: normocephalic atraumatic Neck: supple Heart: RRR Respiratory: CTAB, normal chest expansion Gastrointestinal: soft, normal bowel sounds Neurological - other findings: for breif moment, no left shoulder jerks but then restarted again. Hosp A/P - Plan (1) Sepsis Code(s): A41.9 - SEPSIS, UNSPECIFIED ORGANISM Status: Resolved Qualifiers: Sepsis type: sepsis due to unspecified organism Sepsis acute organ dysfunction status: without acute organ dysfunction Qualified Code(s): A41.9 - Sepsis, unspecified organism (2) UTI (urinary tract infection) E,coli and acenetob acter, sens to FQ -- on --stop on (3) Atrial fibrillation with RVR Code(s): I48.91 - UNSPECIFIED ATRIAL FIBRILLATION Status: Resolved -on lovenox (4) H/O: CVA (cerebrovascular accident) Code(s): Z86.73 - PRSNL HX OF TIA (TIA), AND CEREB INFRC W/O RESID DEFICITS Status: Chronic (9) Acute CVA (cerebrovascular accident) -MRI r/o mets. ------------> rpt reviewed and no mets, but changes suggestive of infarcts. (5) Seizure disorder focal seizures on left side, ?conversion, neuro to f/u EEG, is on increased dose of keppra 1500mg q12h, along with fosphenytoin-------- > changed to dilantin. -pt seems to have still breakthrough seizure this am. - Dilantin dose adjusted. pt supposedly had an appt at [facility] for october 19 -- radiation. (6) Dyslipidemia Code(s): E78.5 - HYPERLIPIDEMIA, UNSPECIFIED Status: Chronic (7) HTN (hypertension) Code(s): I10 - ESSENTIAL (PRIMARY) HYPERTENSION Status: Chronic Qualifiers: Hypertension type: essential hypertension Qualified Code(s): I10 - Essential (primary) hypertension (8) Pancreatic cancer metastasized to liver . MRI brain - no mets but shows ac multifocal cva, is on lovenox 70mg sc q12h in view of pancreatic malignancy - supposedly had an appt at [facility] for october 19 -- for radiation.--need to be rescheduled. - diagnosed in 2013, had whipples procedure. - last radiation roughly 18 months ago. on levaquin oral--- stop on , asp, lipitor, cardizem oral covid 19 is -ve. PT/OT eval Patient was on lovenox and got switched to eliquis 2 days prior to hospitalization. Seizure being managed with meds titration. -tegretol started, - + keppra pending rehab placement, when medically able.
[2019-10-27] MEDS: Atorvastatin Calcium 40 MG TAB PO SCH (20:43)
[2019-10-28 04:59] LABS: #Basophils 0.1 thou/uL (0.0-0.2); #Eosinphils 0.1 thou/uL (0.0-0.7); #Lymphocytes 1.2 thou/uL (1.20-3.40); #Monocytes 0.6 thou/uL (0.11-0.59); #Neutrophils 3.4 thou/uL (1.40-6.50); %Basophils 1.6 % (0.0-1.0); %Eosinophils 0.9 % (0.0-10.0); %Lymphocytes 22.1 % (21.0-51.0); %Monocytes 11.8 % (0.0-10.0); %Neutrophils 63.5 % (42.0-75.0); Hemoglobin 11.2 g/dL (14.0-18.0); Mean Corpuscular HGB CONC 32.7 g/dL (32.0-36.0); Mean Corpuscular Hemoglobin 29.1 pg (27.0-31.0); Mean Platelet Volume 8.5 fL (7.4-10.4); Platelet Count 242 thou/uL (130-400); RBC Distribution Width 12.7 % (11.5-14.5); Red Blood Cell (RBC) Count 3.85 mill/uL (4.70-6.10); White Blood Cell (WBC) Count 5.4 thou/uL (4.8-10.8)
[2019-10-28 05:21] LABS: Anion Gap 12 mmol/L (10-20); BUN (Urea Nitrogen) 20 mg/dL (8.4-25.7); Calc. Creatinine Clearance 66 mL/min (70-130); Calcium 8.5 mg/dL (7.8-10.44); Carbon Dioxide 24 mmol/L (23-31); Chloride 105 mmol/L (98-107); Estimated GFR-MDRD 70; Glucose 86 mg/dL (80-115); Potassium 4.1 mmol/L (3.5-5.1); Sodium 137 mmol/L (136-145)
[2019-10-28] MEDS: Levothyroxine Sodium 50 MCG TAB PO SCH (06:24)
--- NOTE | 2019-10-28 09:45 | DIS ---
DATE OF ADMISSION: 10/17/2019 DATE OF DISCHARGE: 10/28/2019 DISCHARGE DIAGNOSES: 1. Urinary tract infection with Escherichia coli and Acinetobacter species. 2. Sepsis secondary to urinary tract infection, resolved. 3. Atrial fibrillation with rapid ventricular response with current sinus mechanism on chronic anticoagulation with Eliquis. 4. Acute cerebrovascular accident of the left frontal distribution with chronic left hemiparesis. 5. Seizure disorder. 6. Hypertension. 7. Metastatic pancreatic cancer to the liver. 8. Deconditioning. CONSULTATIONS: 1. Dr. Mahan with Neurology Service. 2. Dr. Golden with Infectious Disease Service. 3. Dr. Mendez with Cardiology Service. PERTINENT LABORATORY AND X-RAY FINDINGS: Lactic acid level ranged between 1.1 to 7.1. BNP ranged between 60 to 620. TSH 1.85, free T3 of 3.26, T4 level 12.9, free T4 of 1.39. Lipase level less than 4. Total cholesterol 97, triglycerides 80, HDL 44, LDL 37. CBC showed a hemoglobin ranging between 8.8 to 11.2. Urine drug screen dated 10/17/2019, positive for opiates. Phenytoin level 7.0 on 10/25/2019. Keppra level 40.2 on 10/25/2019. AARON screen negative on 10/22/2019. COVID-19 PCR not detected. Syphilis IgG and IgM antibody nonreactive on 10/21/2019. Urine culture dated 10/17/2019, showed greater than 100,000 colonies of E coli and second species Acinetobacter species. Influenza A and B antigen negative on 10/17/2019. Group A streptococcal throat screen negative on 10/17/2019. Group A streptococcus throat culture dated 10/17/2019 negative. Blood cultures dated 10/17/2019, showed 1/2 positive for presumptive corynebacterium species, likely skin contaminant. CT of the brain without contrast dated 10/17/2019 showed no acute intracranial process. Multiple remote infarcts, bilateral cerebral hemispheres and in the right cerebellar hemisphere similar to prior exam. CT of the chest dated 10/17/2019 showed small nodules in the right upper lobe consistent with old granulomatous changes. Markedly abnormal appearance of the liver with multiple hypodense masses. CT angiogram of the chest dated 10/17/2019 showed no evidence for pulmonary embolus. Multiple enhancing masses of the liver. Suspected biliary gas in the left lobe of the liver. MRI of the brain dated 10/21/2019, showed new cortically based acute infarct involving the left frontal lobe. Suspicion for acute infarct involving the medial right anterior temporal lobe. Remote chronic infarcts involving the anterior left frontal lobe and right frontal lobe in the right MARIAM distribution and right frontal lobe in the distal right MCA distribution. No evidence to suggest acute intracranial metastatic process. 2D transthoracic echocardiogram dated 10/22/2019, showed an ejection fraction preserved at 55% to 60%. Grade 1 of 3 diastolic dysfunction noted. Moderate aortic regurgitation. Small pericardial effusion noted without evidence for tamponade. HOSPITAL COURSE: The patient was initially admitted after presenting with possible sepsis due to urinary tract source in the context of chronic indwelling Duran catheter. The patient was treated initially with broad-spectrum IV antibiotic therapy after concern for sepsis, initially placed on broad-spectrum IV antibiotic therapy and receiving IV fluid resuscitation per sepsis protocol. The patient was also ruled out for COVID-19 with a negative study as stated previously. The patient also had multiple comorbid conditions including atrial fibrillation with rapid ventricular response as well as seizure-like activity in the context of chronic seizure disorder. The patient was evaluated by the Cardiology and Neurology services and titrated on higher doses of Keppra in addition to fosphenytoin and Tegretol. The patient was also evaluated by the Infectious Disease Service with recommendations to continue IV antibiotic therapy in the context of chronic Duran catheter placement. Blood cultures were noted with 1/2 positive samples for corynebacterium species thought to be skin contaminant. The patient was slow to clinically improve and underwent evaluation due to encephalopathic type changes as well as seizure-like activity involving the left upper extremity. MRI imaging of the brain did reveal new infarct of the left frontal lobe in addition to previously noted left and right frontal lobe infarcts. The patient received general stroke protocol including physical, speech, and occupational therapy. Due to the patient's multitude of comorbid conditions, deconditioned status, limited mobility, and metastatic pancreatic cancer, the patient was deemed an appropriate candidate for ongoing skilled care at inpatient rehabilitation. The patient has been approved to transfer to [facility] on 10/28/2019. DISCHARGE MEDICATIONS: 1. Xanax 0.25 mg p.o. daily. 2. Lipitor 40 mg p.o. at bedtime. 3. Diltiazem extended release 120 mg p.o. daily. 4. Lisinopril 20 mg p.o. daily. 5. Zoloft 25 mg p.o. daily. 6. Eliquis 5 mg p.o. b.i.d. 7. Enteric-coated aspirin 81 mg p.o. daily. 8. Tegretol 200 mg p.o. b.i.d. 9. Keppra 1000 mg p.o. b.i.d. 10. Levaquin 500 mg p.o. daily until 11/02/2019. 11. Levothyroxine 50 mcg p.o. daily. 12. Ritalin 5 mg p.o. daily. 13. Creon DR one capsule p.o. t.i.d. 14. Dilantin 100 mg p.o. b.i.d. FOLLOWUP: The patient will follow up with his primary care provider, Dr. Edwin Mcpherson after discharge from inpatient rehabilitation. The patient may also follow up with Dr. Jonathan Mahan with Neurology Service. CONDITION ON DISCHARGE: Guarded. ACTIVITY: Rolling walker with contact guard assistance with high fall risk precautions. DIET: Heart healthy with Glucerna shakes b.i.d. CODE STATUS: Do not attempt resuscitation. DISPOSITION: Discharged to [facility] on 10/28/2019. TIME SPENT: Total time preparing and coordinating discharge is 36 minutes. Job ID: [id number]
[2019-10-28] MEDS: carBAMazepine 200 MG TAB PO SCH (09:50)
[2019-10-28] MEDS: Pancrelipase DR 12000 1 CAP PO SCH ×2 (09:50→12:12)
[2019-10-28] MEDS: Aspirin 81 mg Enteric Coated Tablet PO SCH (09:50)
[2019-10-28] MEDS: Fosphenytoin Sodium 200 MG in Sodium Chloride 0.9% 50 ML IVPB SCH (09:51)
[2019-10-28] MEDS: levETIRAcetam 500 mg/5 ml Oral Solution PO SCH (09:51)
[2019-10-28] MEDS: Enoxaparin Sodium 80 MG/0.8 ML SYRINGE SC SCH (09:51)
[2019-10-28 12:11] VITALS: BP 137/87; TEMP 97.4
== END 2019-10-28 13:56 | DRG 698 ==
LOC: ERS 12:29 → IMCU/EMU 15:46 → T4-A 10-20 19:34 → 2SE 10-21 19:51
PROVIDERS: ADMIT Internal Medicine; ATTEND Internal Medicine
DX: T83.518A Infection and inflammatory reaction due to other urinary catheter, initial encounter (principal); G93.41 Metabolic encephalopathy; A41.51 Sepsis due to Escherichia coli [E. coli]; A41.89 Other specified sepsis; N39.0 Urinary tract infection, site not specified; C78.7 Secondary malignant neoplasm of liver and intrahepatic bile duct; C25.9 Malignant neoplasm of pancreas, unspecified; I69.354 Hemiplegia and hemiparesis following cerebral infarction affecting left non-dominant side; Z66 Do not resuscitate; Z20.828 Contact with and (suspected) exposure to other viral communicable diseases; E03.9 Hypothyroidism, unspecified; I10 Essential (primary) hypertension; G40.909 Epilepsy, unspecified, not intractable, without status epilepticus; F32.9 Major depressive disorder, single episode, unspecified; E13.9 Other specified diabetes mellitus without complications; E78.5 Hyperlipidemia, unspecified; I48.0 Paroxysmal atrial fibrillation; Z88.8 Allergy status to other drugs, medicaments and biological substances; Z79.899 Other long term (current) drug therapy; Z79.01 Long term (current) use of anticoagulants; Z79.890 Hormone replacement therapy
CPT/HCPCS: 36415; 36416; 70450; 70553; 71045; 71250; 71275; 80048; 80053; 80061; 80177; 80185; 80202; 80306; 80307; 81003; 81015; 82330; 82803; 83605; 83615; 83690; 83735; 83880; 84145; 84436; 84439; 84443; 84481; 84484; 85025; 85610; 86038; 86140; 86225; 86780; 87040; 87077; 87081; 87086; 87186; 87430; 87804; 90471; 90715; 93005; 93010; 93306; 93880; 94760; 95816; 95819; 96361; 96365; 96367; 96375; 96376; 99292; J0692; J0696; J1650; J1885; J1953; J2060; J2185; J2405; J3370; J3490; J7050; Q2009; Q9967; S0028; U0001

== ENCOUNTER 2019-12-13 11:06 | Emergency (ER) | payer BC ==
[2019-12-13 11:43] LABS: #Monocytes 0.7 thou/uL (0.11-0.59); #Neutrophils 8.3 thou/uL (1.40-6.50); %Basophils 0.4 % (0.0-1.0); %Eosinophils 0.3 % (0.0-10.0); %Lymphocytes 9.9 % (21.0-51.0); %Monocytes 7.3 % (0.0-10.0); %Neutrophils 82.1 % (42.0-75.0); Mean Corpuscular HGB CONC 30.4 g/dL (32.0-36.0); Mean Corpuscular Hemoglobin 26.6 pg (27.0-31.0); Mean Corpuscular Volume 87.5 fL (78.0-98.0); Mean Platelet Volume 7.6 fL (7.4-10.4); Platelet Count 410 thou/uL (130-400); RBC Distribution Width 15.1 % (11.5-14.5); Red Blood Cell (RBC) Count 3.75 mill/uL (4.70-6.10); White Blood Cell (WBC) Count 10.1 thou/uL (4.8-10.8)
[2019-12-13] MEDS ORDERED: levETIRAcetam 500 MG/100 ML PREMIX BAG ONE ×2 (11:53→12:00)
[2019-12-13 12:03] LABS: ALT (SGPT) 73 U/L (8-55); AST (SGOT) 83 U/L (5-34); Albumin 3.1 g/dL (3.4-4.8); Alkaline Phosphatase 472 U/L (40-110); Anion Gap 14 mmol/L (10-20); BUN (Urea Nitrogen) 21 mg/dL (8.4-25.7); Bilirubin, Total 0.2 mg/dL (0.2-1.2); Calc. Creatinine Clearance 0 mL/min (70-130); Calcium 8.9 mg/dL (7.8-10.44); Carbon Dioxide 24 mmol/L (23-31); Chloride 100 mmol/L (98-107); Estimated GFR-MDRD 84; Globulin 3.1 g/dL (2.4-3.5); Glucose 119 mg/dL (80-115); Potassium 4.5 mmol/L (3.5-5.1); Protein, Total 6.2 g/dL (5.8-8.1); Sodium 133 mmol/L (136-145)
== END 2019-12-13 13:36 | disposition home or self-care (01) ==
LOC: ERS 11:06
DX: R56.9 Unspecified convulsions (principal); E03.9 Hypothyroidism, unspecified; I10 Essential (primary) hypertension; Z87.891 Personal history of nicotine dependence
CPT/HCPCS: 36415; 80053; 80185; 84146; 85025; 96361; 96365; J1953

== ENCOUNTER 2020-01-04 15:28 | Outpatient (CLI) | payer BC ==
--- NOTE | 2020-01-04 15:52 | RAD ---
TWO VIEW ABDOMEN: Supine and upright views. INDICATION: Upper abdominal pain. FINDINGS: Scattered stool and gas throughout the colon. The small bowel gas pattern is unremarkable. There is no evidence of free intraperitoneal air. No soft tissue mass identified. Clips in the right upper quadrant indicate prior cholecystectomy. Radiopaque suture and clips in the left abdomen. Osseous s tructures unremarkable. IMPRESSION: Unremarkable bowel gas pattern. POS: AH
== END 2020-01-04 15:29 | disposition home or self-care (01) ==
LOC: BICRAD 15:28
PROVIDERS: ATTEND Family Medicine
DX: R10.10 Upper abdominal pain, unspecified (principal)
CPT/HCPCS: 74019